=== PATIENT | female | born 1985 | race Caucasian/White ===

== ENCOUNTER 2020-10-07 13:48 | Outpatient (REF) | payer OTHER, SELFPAY | END 2020-10-07 13:49 | disposition home or self-care (01) | LOC: HO.LAB 13:48 | PROVIDERS: Visit Provider Nurse Practitioner Family | DX: Z20.822 Contact with and (suspected) exposure to COVID-19 (principal) | CPT/HCPCS: U0003; U0005 ==

== ENCOUNTER 2020-12-03 14:49 | Outpatient (REF) | payer OTHER, SELFPAY ==
--- NOTE | ~2020-12-03 | XR_ITS ---
EXAMINATION: XR LUMBOSACRAL SPINE CLINICAL INFORMATION: Low back pain. COMPARISON: None TECHNIQUE: Three views of the lumbosacral spine. FINDINGS: There is normal lumbar lordosis. The vertebral heights, alignment and disc heights are normal. There is no visible acute fracture, dislocation or subluxation seen. No lytic or sclerotic process seen. The SI joints are symmetrical and normal XR/XR lumbar spine 2-3V IMPRESSION: Unremarkable lumbar spine exam.
== END 2020-12-03 14:50 | disposition home or self-care (01) ==
LOC: HO.XRAY 14:49
PROVIDERS: PCP Internal Medicine; Visit Provider Nurse Practitioner Family
DX: M54.5 Low back pain (principal)
CPT/HCPCS: 72100

== ENCOUNTER 2021-02-06 06:52 | Emergency (ER) | payer OTHER, SELFPAY ==
--- NOTE | ~2021-02-06 | CT_ITS ---
EXAMINATION: CT ABDOMEN AND PELVIS WITH CONTRAST CLINICAL INFORMATION: Right upper and lower abdominal pain with diarrhea COMPARISON: None TECHNIQUE: Multidetector volumetric images were obtained from the superior aspect of the liver through the pubic symphysis following administration 85 mL of Omnipaque 350 intravenous contrast. Sagittal and coronal reformatted images were obtained on the technologist's workstation. Oral contrast: No This CT examination was performed using dose optimization techniques as appropriate, variously including the following: *Automated exposure control *Adjustment of mA and/or kV according to patient size (this includes techniques or standardized protocols for targeted exams where dose is matched to indication/reason for exam; i.e. extremities or head) *Use of iterative reconstruction technique DLP: 933 mGy-cm FINDINGS: LUNG BASES: The visualized lung bases are unremarkable. No pleural or pericardial effusion. LIVER, GALLBLADDER, AND BILIARY TREE: There is hepatomegaly with vertical span of 24 cm. There is diffuse fatty infiltration of the liver. No focal hepatic mass is seen. No intrahepatic bile duct dilatation. There is a calcified granuloma seen within segment 7. The gallbladder is unremarkable with no evidence of radiopaque gallstones, gallbladder wall thickening, or obvious pericholecystic inflammatory changes. PANCREAS: Unremarkable. SPLEEN: Unremarkable. ADRENAL GLANDS: Unremarkable. KIDNEYS AND URETERS: The kidneys are normal in size, shape, and attenuation. No hydronephrosis, hydroureter, or calculi seen. No perinephric stranding. BLADDER: Partially distended with question of thickened wall but which may be related to its not totally distended state. No bladder calculi identified. No pericystic inflammatory change appreciated. GASTROINTESTINAL TRACT: No free air or free fluid. No dilated loops of large or small bowel. No pericolonic inflammatory change. There appears to represent a very thin collapsed appendix does not appear abnormal however it does lead down to a region of diminished density within the pelvis but there are numerous bilateral adnexal low-density regions present with 1 in the location of the tip of the appendix in the anterior aspect of the right adnexa. This could possibly represent a hemorrhagic cyst however no adjacent free fluid is seen. ABDOMINAL WALL: No significant hernia is appreciated. LYMPH NODES: No lymphadenopathy appreciated. VASCULAR: Unremarkable. PELVIC VISCERA: No free fluid is seen. There are bilateral adnexal low-density lesions seen 4 x 3 cm in size measuring fluid density and may represent hemorrhagic cyst measuring 3.7 x 2.2 cm in size as well as a complex heterogeneous region of density about the anterior right adnexa without adjacent free fluid which also may represent hemorrhagic cyst. OSSEOUS STRUCTURES: Unremarkable. CT/CT abdomen pelvis w con IMPRESSION: Faint infiltration of the liver with hepatomegaly. Gallbladder unremarkable. No evidence of obstruction or colitis. No definite evidence of appendicitis with tip lying about the anterior right adnexa. Bilateral adnexal cysts, cannot rule out hemorrhagic cyst. However no free fluid is seen. No evidence of obstructive uropathy. Question some mild wall thickening of the urinary bladder.
[2021-02-06 07:26] VITALS: BP 137/72; PULSE 72; RESP 18; TEMP 36.9; O2SAT 99; BMI 35.4
--- NOTE | 2021-02-06 07:41 | ED_ITS ---
HPI - Abdominal Pain General Chief Complaint: Abdominal Pain Stated Complaint: stomach/abd pain Time Seen by Provider: 02/06/21 07:27 Source: patient Mode of arrival: ambulatory Limitations: no limitations History of Present Illness HPI narrative: 35-year-old female who presents emergency department for evaluation of abdominal pain, nausea, vomiting and diarrhea. Patient states that her symptoms came on gradually 5 days prior. She points to her epigastric, right upper quadrant and right lower quadrant areas when asked to localize the pain. She states the pain is a constant, squeezing pain which is 10/10. She states this is the 1st time she has had this type of pain. The patient has had constant nausea with 3-4 episodes of vomiting per day. She states that she has also had frequent, watery diarrhea, too numerous to count. She denied any blood in the emesis or diarrhea. She states that the diarrhea is black. She denied fever, chills, chest pain, shortness of breath, frequency, urgency or dysuria. She states that any time she eats food or drinks fluid makes the pain worse. She has been using Pepto-Bismol without any relief of her symptoms. Patient states that 3 days prior to evaluation, she completed a 10 day course of antibiotics (doxycycline?) for sinus infection/bronchitis. She denies recent travel outside of the country. Related Data Home Medications Medication Instructions Recorded Confirmed fluticasone propionate 50 2 spray INTRANASAL DAILY 05/29/20 12/03/20 mcg/actuation nasal spray,suspension naproxen 250 mg tablet 50 mg PO Q8H PRN tab 05/29/20 12/03/20 vitamin 1 tab PO DAILY 05/29/20 12/03/20 no.76-iron,carbonyl 29 mg iron-folic acid 1 mg tablet levonorgestrel-ethinyl estradiol 0 tab PO DAILY 12/03/20 01/29/21 0.1 mg-20 mcg tablet (Sronyx) methocarbamol 750 mg tablet 750 mg PO BEDTIME PRN 12/03/20 12/03/20 tramadol 50 mg tablet 50 mg PO DAILY 12/03/20 12/03/20 Previous Rx's Medication Instructions Recorded cyclobenzaprine 10 mg tablet 10 mg PO TID 5 Days #15 tab 05/30/20 albuterol sulfate 90 mcg/actuation 2 puff INHALATION Q4-6H PRN #6.7 g 10/07/20 aerosol inhaler (ProAir HFA) acetaminophen 325 mg tablet 650 mg PO Q6H PRN 5 Days #40 tab 12/03/20 gabapentin 100 mg capsule 100 mg PO TID #90 cap 12/03/20 lidocaine 4 % topical patch 1 patch TOPICAL DAILY PRN 7 Days 12/03/20 (Aspercreme (lidocaine)) #10 ea albuterol sulfate 2.5 mg (3 mL) INHALATION Q4-6H PRN 01/29/21 #90 ml doxycycline hyclate 100 mg tablet 100 mg PO BID 7 Days #14 tab 01/29/21 prednisone 20 mg tablet 40 mg PO DAILY 5 Days #10 tab 01/29/21 acetaminophen 500 mg capsule 1,000 mg PO Q6H PRN #30 cap 02/06/21 loperamide 2 mg tablet (Imodium 2 mg PO Q4H PRN #20 tab 02/06/21 A-D) ondansetron 4 mg disintegrating 4 mg PO Q6-8H PRN #14 tab 02/06/21 tablet Allergies Allergy/AdvReac Type Severity Reaction Status Date / Time aspirin [ASPIRIN] Allergy Unknown UNKNOWN, Verified 01/29/21 14:31 anaphylaxis peach [PEACH] Allergy Unknown UNKNOWN Verified 01/29/21 14:31 penicillin V Allergy Unknown anaphylaxis Verified 01/29/21 14:31 Penicillins [PENICILLINS] Allergy Unknown UNKNOWN Verified 01/29/21 14:31 Sulfa (Sulfonamide Allergy Unknown RASH Verified 01/29/21 14:31 Antibiotics) [SULFA (SULFONAMIDE ANTIBIOTICS)] Sulfacet-R Allergy Unknown throat Verified 01/29/21 14:31 closes Review of Systems Review of Systems Yes all other systems are reviewed and are negative Physical Exam Vital Signs: Vital Signs: Last Vital Signs Temp 98.2 F 02/06/21 10:35 Pulse 70 02/06/21 10:35 Resp 16 02/06/21 10:35 BP 115/61 02/06/21 10:35 Pulse Ox 97 02/06/21 10:35 Body Mass Index 35.4 Const: General: cooperative and no acute distress Orientation/consciousness: oriented to person and oriented to place Limitations: no limitations HENMT: Head: Yes normal to inspection, Yes normocephalic and Yes atraumatic Ears: external ears normal General nose exam: Normal external nose present Face and sinus: Yes normal facial exam Mouth: Normal oral and palatal mucosa present Throat: Yes posterior oropharynx normal Eyes: General: appearance normal, both eyes and all related structures Pupils: Equal, round and reactive pupils present Neck: Neck: Yes normal visual inspection, Yes no lymphadenopathy, Yes trachea midline and Yes supple Chest: Chest palpation & inspection: normal inspection of the chest and normal palpation of entire chest wall Resp: Effort & Inspection: normal respiratory effort and able to speak in complete sentences Auscultation: clear to auscultation bilaterally Cardio: Rate: regular rate Rhythm: regular rhythm Heart sounds: S1 normal heart sound present, S2 normal heart sound present and no murmurs GI: Inspection: Yes normal to inspection Palpation (GI): Soft to palpation, Tenderness to palpation present (GI) in the epigastrum (Moderate), in the RLQ (Moderate) and in the RUQ (Moderate) and no guarding Auscultation: normal bowel sounds : General: Yes no CVA tenderness Back/Spine/Pelvis: Back: no CVA tenderness Skin: General skin exam: no rashes or lesions noted Neuro: General: oriented to person and oriented to place Cranial nerves: Yes CN's II-XII intact bilaterally and Yes Equal, round and reactive pupils present Cognition (Neuro): normal cognition Motor exam (neuro): 5/5 motor strength present throughout Extrem: General: Yes normal to inspection Psych: Appearance: grossly normal Speech and movement: Normal speech and movement present Affect: normal affect Attitude: cooperative Thought process: Normal thought process present Thought content: Normal thought content present Course Course Course Narrative: 35-year-old female who presents emergency department for evaluation of 5 days of constant abdominal pain, associated with 3-4 episodes of vomiting per day and frequent loose, black diarrheal stool. The patient completed a 10 day course of doxycycline for sinusitis and bronchitis, approxima tely 3 days prior. Initial vital signs were normal. Examination did reveal epigastric, right upper quadrant right lower quadrant tenderness. Differential includes was not limited to biliary disease, gastritis, gastroenteritis, appendicitis, pancreatitis, C difficile colitis, viral syndrome. I did order CBC, CMP, lipase, C diff, stool culture, CT scan of the abdomen pelvis with IV contrast. Patient was ordered to get normal saline x1 L, Toradol 30 mg IV (the patient has used NSAIDs in the past ) and Zofran 4 mg IV. 1350: Laboratory evaluation: CBC, CMP were normal. C diff was negative. Patient is feeling better after the above treatment. At this time I suspect the patient may have a viral illness causing her symptoms. The patient will be started on Imodium, Zofran ODT and Tylenol. She was given verbal and printed instructions and discharged home. MDM - Abdominal Pain Lab Data Result diagrams: 02/06/21 08:14 02/06/21 08:14 Labs: Lab Results 02/06/21 02/06/21 02/06/21 Range/Units 08:14 08:14 08:29 WBC 6.7 (4.8-10.8) X10*3/uL RBC 4.62 (4.20-5.50) X10*6/uL Hgb 13.2 (12.0-16.0) g/dl Hct 39.7 (37.0-47.0) % MCV 85.9 (80.0-98.0) fL MCH 28.6 (27.0-33.0) pg MCHC 33.2 (31.0-35.0) g/dl RDW 12.1 (11.0-16.0) % Plt Count 213 (160-400) X10*3/uL MPV 10.8 (9.4-12.3) fL Immature Gran % (Auto) 0.3 (0.0-0.4) % Neut % (Auto) 62.9 (45-73) % Lymph % (Auto) 26.7 (20-40) % [place] % (Auto) 7.5 (2-11) % Eos % (Auto) 2.3 (0-4) % Baso % (Auto) 0.3 (0-2) % Lymph # (Auto) 1.8 (1.2-4.9) X10*3/uL [place] # (Auto) 0.5 (0.1-1.2) X10*3/uL Eos # (Auto) 0.2 (0.0-0.4) X10*3/uL Baso # (Auto) 0.0 (0.0-0.2) X10*3/uL Abs Immat Gran (auto) 0.02 (0.00-0.03) X10*3/uL Absolute Neuts (auto) 4.2 (2.0-8.3) x10*3/uL Absolute Nucleated RBC 0.000 (0.0-0.012) X10*3/uL Nucleated RBC % (auto) 0.0 (0.0-0.2) /100WBC Sodium 138 (135-145) mmol/L Potassium 4.2 (3.3-5.1) mmol/L Chloride 106 (96-108) mmol/L Carbon Dioxide 25 (22-29) mmol/L Anion Gap 11 L (12-20) BUN 13 (9-16) mg/dL Creatinine 0.70 (0.5-1.4) mg/dL Estim Creat Clear Calc 150.2 Estimated GFR > 60 Random Glucose 93 (60-115) mg/dL Calcium 8.5 (8.4-10.2) mg/dL Total Bilirubin 0.3 (0.0-1.0) mg/dL AST 15 (5-31) U/L ALT 21 (0-31) U/L Alkaline Phosphatase 46 (39-117) U/L Total Protein 6.8 (6.5-8.0) g/dL Albumin 3.9 (3.5-5.0) g/dL Lipase 32 (8-78) U/L Urine Color YELLOW Urine Appearance CLEAR Urine pH 6.0 (5.0-8.0) Ur Specific [place] 1.020 (1.005-1.025) Urine Protein TRACE (NEG-TRACE) MG/DL Urine Glucose (UA) NEG (NEG) MG/DL Urine Ketones NEG (NEG) MG/DL Urine Blood 3+ H (NEG) Urine Nitrite NEG (NEG) Ur Leukocyte Esterase NEG (NEG) Urine RBC 1-4 (0) /HPF Urine WBC 0-2 (0-4) /HPF Ur Squamous Epith Cells 2+ /LPF Urine Bacteria 1+ /LPF Urine Mucus 1+ /LPF Urine Test (NEGATIVE) C. difficile Tox B Gene (Negative) 02/06/21 02/06/21 Range/Units 08:29 Unknown WBC (4.8-10.8) X10*3/uL RBC (4.20-5.50) X10*6/uL Hgb (12.0-16.0) g/dl Hct (37.0-47.0) % MCV (80.0-98.0) fL MCH (27.0-33.0) pg MCHC (31.0-35.0) g/dl RDW (11.0-16.0) % Plt Count (160-400) X10*3/uL MPV (9.4-12.3) fL Immature Gran % (Auto) (0.0-0.4) % Neut % (Auto) (45-73) % Lymph % (Auto) (20-40) % [place] % (Auto) (2-11) % Eos % (Auto) (0-4) % Baso % (Auto) (0-2) % Lymph # (Auto) (1.2-4.9) X10*3/uL [place] # (Auto) (0.1-1.2) X10*3/uL Eos # (Auto) (0.0-0.4) X10*3/uL Baso # (Auto) (0.0-0.2) X10*3/uL Abs Immat Gran (auto) (0.00-0.03) X10*3/uL Absolute Neuts (auto) (2.0-8.3) x10*3/uL Absolute Nucleated RBC (0.0-0.012) X10*3/uL Nucleated RBC % (auto) (0.0-0.2) /100WBC Sodium (135-145) mmol/L Potassium (3.3-5.1) mmol/L Chloride (96-108) mmol/L Carbon Dioxide (22-29) mmol/L Anion Gap (12-20) BUN (9-16) mg/dL Creatinine (0.5-1.4) mg/dL Estim Creat Clear Calc Estimated GFR Random Glucose (60-115) mg/dL Calcium (8.4-10.2) mg/dL Total Bilirubin (0.0-1.0) mg/dL AST (5-31) U/L ALT (0-31) U/L Alkaline Phosphatase (39-117) U/L Total Protein (6.5-8.0) g/dL Albumin (3.5-5.0) g/dL Lipase (8-78) U/L Urine Color Urine Appearance Urine pH (5.0-8.0) Ur Specific [place] (1.005-1.025) Urine Protein (NEG-TRACE) MG/DL Urine Glucose (UA) (NEG) MG/DL Urine Ketones (NEG) MG/DL Urine Blood (NEG) Urine Nitrite (NEG) Ur Leukocyte Esterase (NEG) Urine RBC (0) /HPF Urine WBC (0-4) /HPF Ur Squamous Epith Cells /LPF Urine Bacteria /LPF Urine Mucus /LPF Urine Test NEGATIVE (NEGATIVE) C. difficile Tox B Gene NEGATIVE (Negative) Discharge Plan Discharge Clinical Impression: Abdominal pain, Diarrhea, Vomiting Patient Disposition: Home, Self-Care Instructions: Acute Diarrhea (ED), Abdominal Pain (ED) Additional Instructions: Your blood work was unremarkable. The CT scan of your abdomen pelvis did not any significant abnormality to explain your symptoms. The C diff stool test was negative. There is a stool culture that is not back yet, this sometimes comes back in 2-3 days. At this time, I believe that you have a viral infection that is making you sick, causing your abdominal pain, nausea and vomiting. Take Imodium 2 mg pills, 2 pills after her 1st loose diarrheal stool then 1 pill after each loose stool up to 8 pills per day. Take Zofran ODT 4 mg pills, 1 pill dissolved in your mouth every 8 hours as needed for nausea and vomiting. Take ibuprofen 200 mg pills, 3 pills every 6 hours as needed for pain. Take Tylenol (acetaminophen) 500 mg pills, 2 pills every 4 to 6 hours as needed for pain. Follow-up with your doctor in 2 days. Please return to the emergency department if your symptoms get worse or if you develop any symptoms that are concerning to you. Prescriptions: New ondansetron 4 mg tablet,disintegrating 4 mg PO Q6-8H PRN (Reason: nausea and vomiting) Qty: 14 RF: 0 loperamide [Imodium A-D] 2 mg tablet 2 mg PO Q4H PRN (Reason: loose stool) Qty: 20 RF: 0 acetaminophen 500 mg capsule 1,000 mg PO Q6H PRN (Reason: fever or pain) Qty: 30 RF: 0 No Action cyclobenzaprine 10 mg tablet 10 mg PO TID 5 Days Qty: 15 RF: 0 albuterol sulfate [ProAir HFA] 90 mcg/actuation HFA aerosol inhaler 2 puff inhalation Q4-6H PRN (Reason: shortness of breath or wheezing) Qty: 6.7 RF: 0 tramadol 50 mg tablet 50 mg PO DAILY RF: 0 levonorgestrel-ethinyl estrad [Sronyx] 0.1-20 mg-mcg tablet 0 tab PO DAILY RF: 0 methocarbamol 750 mg tablet 750 mg PO BEDTIME PRNRF: 0 gabapentin 100 mg capsule 100 mg PO TID Qty: 90 RF: 3 lidocaine [Aspercreme (lidocaine HCl)] 4 % adhesive patch,medicated 1 patch topical DAILY PRN (Reason: pain) 7 Days Qty: 10 RF: 0 acetaminophen 325 mg tablet 650 mg PO Q6H PRN (Reason: pain) 5 Days Qty: 40 RF: 0 PNV 29-1 29 mg iron- 1 mg tablet 1 tab PO DAILY RF: 0 fluticasone propionate 50 mcg/actuation spray,suspension 2 spray intranasal DAILY RF: 0 naproxen 250 mg tablet 50 mg PO Q8H PRNRF: 0 prednisone 20 mg tablet 40 mg PO DAILY 5 Days Qty: 10 RF: 0 doxycycline hyclate 100 mg tablet 100 mg PO BID 7 Days Qty: 14 RF: 0 albuterol sulfate 2.5 mg /3 mL (0.083 %) solution for nebulization 2.5 mg inhalation Q4-6H PRN (Reason: shortness of breath or wheezing) Qty: 90 RF: 0 Stand Alone Forms: Work/School Release [facility] [place] Past Medical History [facility] [place] Narrative: Past medical history: Asthma, sinusitis, back pain. Past edgard gical history: Cervical polyp removal. Social history: She denies tobacco, alcohol and drug use. Medical History Low back pain radiating to lower extremity Surgical History History of cervical polypectomy Family History Family History Mother No problems noted. Father No problems noted. Social History Social History Housing: Apartment Alcohol intake: never Patient Tobacco Use Status: Never used Tobacco e-Cigarette/Vaping Use: Never Used Second Hand Smoke Exposure: No Use of substances other than those prescribed or required for medical reasons: No Advance Directives: No Advance Directives Information Provided: Yes service: No Current occupational status: employed
[2021-02-06 08:21] LABS: MANUAL DIFF FLAG NO
[2021-02-06 08:22] LABS: Basophils Percent Auto 0.3 % (0-2); Eosinophils Absolute Auto 0.2 X10*3/uL (0.0-0.4); Eosinophils Percent Auto 2.3 % (0-4); Hematocrit 39.7 % (37.0-47.0); Hemoglobin 13.2 g/dl (12.0-16.0); Imm Gran Abs Auto 0.02 X10*3/uL (0.00-0.03); Imm Gran Pct Auto 0.3 % (0.0-0.4); Lymphocytes Absolute Auto 1.8 X10*3/uL (1.2-4.9); Lymphocytes Percent Auto 26.7 % (20-40); Mean Corpuscular HGB Conc 33.2 g/dl (31.0-35.0); Mean Corpuscular Hemoglobin 28.6 pg (27.0-33.0); Mean Corpuscular Volume 85.9 fL (80.0-98.0); Mean Platelet Volume 10.8 fL (9.4-12.3); Monocytes Absolute Auto 0.5 X10*3/uL (0.1-1.2); Monocytes Percent Auto 7.5 % (2-11); Neutrophils Absolute Auto 4.2 x10*3/uL (2.0-8.3); Neutrophils Percent Auto 62.9 % (45-73); Platelet Count 213 X10*3/uL (160-400); Red Blood Count 4.62 X10*6/uL (4.20-5.50); Red Cell Distribution Width 12.1 % (11.0-16.0); White Blood Count 6.7 X10*3/uL (4.8-10.8)
[2021-02-06 08:33] VITALS: BP 126/68; PULSE 66; RESP 18; TEMP 37.2; O2SAT 98
[2021-02-06 08:41] LABS: Alanine Aminotransferase 21 U/L (0-31); Albumin Level 3.9 g/dL (3.5-5.0); Alkaline Phosphatase 46 U/L (39-117); Anion Gap 11 (12-20); Aspartate Amino Transferase 15 U/L (5-31); Bilirubin Total 0.3 mg/dL (0.0-1.0); Blood Urea Nitrogen 13 mg/dL (9-16); Calcium 8.5 mg/dL (8.4-10.2); Carbon Dioxide 25 mmol/L (22-29); Chloride 106 mmol/L (96-108); Creatinine Clr Calc Pharmacy 150.2; Estimated Glomerular Filt Rate > 60; Glucose Random 93 mg/dL (60-115); Lipase 32 U/L (8-78); Potassium 4.2 mmol/L (3.3-5.1); Sodium 138 mmol/L (135-145); Total Protein 6.8 g/dL (6.5-8.0)
[2021-02-06 08:54] LABS: Appearance Urine CLEAR; Color Urine YELLOW; Glucose Urine UA NEG (NEG); Leukocyte Esterase Urine NEG (NEG); Nitrite Urine NEG (NEG); UACC Culture Trigger NO; Urine Blood 3+ (NEG); Urine Ketones NEG (NEG); Urine Protein TRACE MG/DL (NEG-TRACE)
[2021-02-06 09:10] LABS: Bacteria Urine 1+ /LPF; Mucus Urine 1+ /LPF; Squamous Epithelial Cell Urine 2+ /LPF; WBC Urine 0-2 /HPF (0-4)
[2021-02-06 09:11] LABS: UPreg QC Valid YES; Urine Pregnancy NEGATIVE (NEGATIVE)
[2021-02-06] MEDS: 0.9 % Sodium Chloride 1,000 ML 999 ML IV (09:31)
[2021-02-06] MEDS: Ketorolac Tromethamine 15 MG/ML VIAL 30 MG IVPUSH (09:31)
[2021-02-06] MEDS: ondansetron HCL 4 MG/2 ML VIAL IVPUSH (09:31)
[2021-02-06] MEDS: iohexoL 350 MG/ML 100 ML INFUS..BTL IV (09:41)
[2021-02-06 10:35] VITALS: BP 115/61; PULSE 70; RESP 16; TEMP 36.8; O2SAT 97
[2021-02-06 10:44] LABS: CDiff Gene PCR NEGATIVE (Negative)
[2021-02-06 14:11] VITALS: BP 95/48; PULSE 62; RESP 15; TEMP 36.6; O2SAT 98
== END 2021-02-06 14:16 | disposition home or self-care (01) ==
PROVIDERS: Emergency Provider Emergency Medicine Emergency Medical Services
DX: R10.9 Unspecified abdominal pain (principal); R11.2 Nausea with vomiting, unspecified; R19.7 Diarrhea, unspecified
CPT/HCPCS: 36415; 74177; 80053; 81001; 81025; 83690; 85025; 87045; 87046; 87493; 96361; 96374; 96375; 99285; J1885; J2405; Q9967

== ENCOUNTER 2021-02-13 07:19 | Outpatient (REF) | payer OTHER, SELFPAY ==
[2021-02-13 08:31] LABS: Leukocytes Stool Qualitative NEGATIVE (NEGATIVE)
== END 2021-02-13 07:20 | disposition home or self-care (01) ==
LOC: HO.LNP 07:19
PROVIDERS: Visit Provider Internal Medicine
DX: R19.7 Diarrhea, unspecified (principal)
CPT/HCPCS: 87045; 87046; 87329; 87338; 89055

== ENCOUNTER 2021-02-28 11:46 | Outpatient (REF) | payer OTHER, SELFPAY ==
[2021-02-28 12:01] LABS: MANUAL DIFF FLAG NO
[2021-02-28 13:02] LABS: Basophils Percent Auto 0.2 % (0-2); Eosinophils Absolute Auto 0.1 X10*3/uL (0.0-0.4); Hematocrit 41.4 % (37.0-47.0); Hemoglobin 13.5 g/dl (12.0-16.0); Imm Gran Abs Auto 0.03 X10*3/uL (0.00-0.03); Imm Gran Pct Auto 0.5 % (0.0-0.4); Lymphocytes Percent Auto 30.8 % (20-40); Mean Corpuscular HGB Conc 32.6 g/dl (31.0-35.0); Mean Corpuscular Hemoglobin 28.4 pg (27.0-33.0); Mean Platelet Volume 11.5 fL (9.4-12.3); Monocytes Absolute Auto 0.4 X10*3/uL (0.1-1.2); Monocytes Percent Auto 6.8 % (2-11); Neutrophils Absolute Auto 3.8 x10*3/uL (2.0-8.3); Neutrophils Percent Auto 59.7 % (45-73); Platelet Count 239 X10*3/uL (160-400); Red Blood Count 4.76 X10*6/uL (4.20-5.50); Red Cell Distribution Width 12.2 % (11.0-16.0); White Blood Count 6.4 X10*3/uL (4.8-10.8)
[2021-02-28 13:19] LABS: Alanine Aminotransferase 29 U/L (0-31); Albumin Level 4.3 g/dL (3.5-5.0); Alkaline Phosphatase 58 U/L (39-117); Anion Gap 15 (12-20); Aspartate Amino Transferase 24 U/L (5-31); Bilirubin Total 0.5 mg/dL (0.0-1.0); Blood Urea Nitrogen 14 mg/dL (9-16); Calcium 9.6 mg/dL (8.4-10.2); Carbon Dioxide 24 mmol/L (22-29); Chloride 106 mmol/L (96-108); Cholesterol 197 mg/dL; Estimated Glomerular Filt Rate > 60; Glucose Fasting 99 mg/dL (60-99); HDL Cholesterol 32 mg/dL; LDL Cholesterol Calculated 127 mg/dl; Potassium 4.3 mmol/L (3.3-5.1); Sodium 141 mmol/L (135-145); Total Protein 7.6 g/dL (6.5-8.0); Triglycerides 193 mg/dL
[2021-02-28 13:55] LABS: Appearance Urine HAZY; Color Urine YELLOW; Glucose Urine UA NEG (NEG); Leukocyte Esterase Urine TRACE (NEG); Nitrite Urine NEG (NEG); Specific Gravity - Urine >= 1.030 (1.005-1.025); UACC Culture Trigger YES; Urine Blood NEG (NEG); Urine Ketones NEG (NEG); Urine Protein NEG (NEG-TRACE)
[2021-02-28 14:30] LABS: Squamous Epithelial Cell Urine 3+ /LPF; WBC Urine 0-2 /HPF (0-4)
[2021-02-28 14:31] LABS: Bacteria Urine TRACE /LPF; RBC Urine 0-2 /HPF (0)
== END 2021-02-28 11:47 | disposition home or self-care (01) ==
LOC: HO.LAB 11:46
PROVIDERS: Nurse Practitioner Family; PCP Internal Medicine; Visit Provider Nurse Practitioner Family
DX: R19.7 Diarrhea, unspecified (principal); M54.50 Low back pain, unspecified
CPT/HCPCS: 36415; 80053; 80061; 81001; 85025; 87045; 87046; 87086

== ENCOUNTER 2021-03-03 13:21 | Outpatient (REF) | payer OTHER, SELFPAY ==
[2021-03-03 15:21] LABS: C Reactive Protein 0.29 mg/dL (< or = 0.50)
[2021-03-03 15:57] LABS: Folate 17.6 ng/mL (> or = 4.0); Vitamin B12 383 pg/mL (200-900)
[2021-03-06 12:37] LABS: Transglutaminase Ab IgG <1.0 U/mL; Transglutaminase IgA <1.0 U/mL
[2021-03-07 13:20] LABS: Vitamin D 25-OH, D2 <4 ng/mL; Vitamin D 25-OH, D3 15 ng/mL; Vitamin D 25-OH, Total 15 ng/mL (30-100)
== END 2021-03-03 13:22 | disposition home or self-care (01) ==
LOC: HO.LAB 13:21
PROVIDERS: PCP Internal Medicine; Referring Provider Internal Medicine; Visit Provider Nurse Practitioner Family
DX: R10.11 Right upper quadrant pain (principal); R14.0 Abdominal distension (gaseous); R19.7 Diarrhea, unspecified; K58.9 Irritable bowel syndrome, unspecified; E55.9 Vitamin D deficiency, unspecified; A04.8 Other specified bacterial intestinal infections; K58.2 Mixed irritable bowel syndrome
CPT/HCPCS: 36415; 81479; 82306; 82397; 82607; 82746; 83516; 83520; 84443; 86140; 88346; 88350

== ENCOUNTER → 2021-03-24 15:12 | Outpatient (BNVA) | payer OTHER, SELFPAY | PROVIDERS: PCP Internal Medicine; Referring Provider Internal Medicine; Visit Provider Nurse Practitioner Family | DX: K21.9 Gastro-esophageal reflux disease without esophagitis (principal); K58.2 Mixed irritable bowel syndrome; K76.0 Fatty (change of) liver, not elsewhere classified; R19.7 Diarrhea, unspecified | CPT/HCPCS: 99212 ==

== ENCOUNTER → 2021-04-23 13:21 | Outpatient (BNVA) | payer OTHER, SELFPAY | PROVIDERS: PCP Internal Medicine; Referring Provider Internal Medicine; Visit Provider Nurse Practitioner Family | DX: R19.7 Diarrhea, unspecified (principal); R14.0 Abdominal distension (gaseous); A04.8 Other specified bacterial intestinal infections; K58.2 Mixed irritable bowel syndrome; K21.9 Gastro-esophageal reflux disease without esophagitis | CPT/HCPCS: 99212 ==

== ENCOUNTER 2021-05-07 10:09 | Day surgery (SDC) | payer OTHER, SELFPAY ==
[2021-05-01 12:16] VITALS: BMI 35.2
--- NOTE | 2021-05-06 12:11 | P.CONAN_ITS ---
Documented by User: Sandra Cabrera NP 05/06/21 12:12 HPI - Anesthesia Eval Consult details Narrative: 36yo F for Upper Endoscopy PMFSH Active Problems Active Problems: All Active Problems (Updated 03/03/21 @ 14:05 by Michaela Interiano, [facility]) Bloating (Acute) Bad odor of urine (Acute) Diarrhea (Acute) Rectal bleeding (Acute) H. pylori infection (Acute) Class 2 obesity with body mass index (BMI) of 37.0 to 37.9 in adult (Acute) Acute diarrhea (Acute) Sinusitis, acute (Acute) Asthma (Acute) Upper respiratory infection (Acute) Shoulder pain, bilateral (Acute) Low back pain radiating to lower extremity (Acute) Past Medical History Medical History Acute diarrhea Class 2 obesity with body mass index (BMI) of 37.0 to 37.9 in adult Low back pain radiating to lower extremity Rectal bleeding Family History Family History Mother No problems noted. Father No problems noted. Surgical History Surgical History History of cervical polypectomy Social History Social History Housing: Apartment Alcohol intake: never Patient Tobacco Use Status: Never used Tobacco e-Cigarette/Vaping Use: Never Used Second Hand Smoke Exposure: No Are you DNR?: No Advance Directives: No Advance Directives Information Provided: Yes Advance Directives on File: No Recently lost weight without trying: No Patient : No FDLMP: 04/16/2021 : No Poor oral hygiene: No service: No Current occupational status: employed Meds Allergies Allergy/AdvReac Type Severity Reaction Status Date / Time aspirin [ASPIRIN] Allergy Severe Anaphylaxis Verified 04/23/21 13:31 penicillin V Allergy Severe anaphylaxis Verified 04/23/21 13:31 Sulfa (Sulfonamide Allergy Intermediate RASH Verified 04/23/21 13:31 Antibiotics) [SULFA (SULFONAMIDE ANTIBIOTICS)] Sulfacet-R Allergy Intermediate throat Verified 04/23/21 13:31 closes peach [PEACH] Allergy Unknown UNKNOWN Verified 04/23/21 13:31 Home Medications Medication Instructions Recorded Confirmed Last Taken Type fluticasone propionate 50 2 spray INTRANASAL DAILY 05/29/20 05/01/21 Unknown History mcg/actuation nasal spray,suspension naproxen 250 mg tablet 50 mg PO Q8H PRN tab 05/29/20 02/27/21 Unknown History vitamin 1 tab PO DAILY 05/29/20 05/01/21 Unknown History no.76-iron,carbonyl 29 mg iron-folic acid 1 mg tablet methocarbamol 750 mg tablet 750 mg PO BEDTIME PRN 12/03/20 05/01/21 Unknown History Provera 05/01/21 Unknown History cyclobenzaprine 10 mg tablet 10 mg PO TID PRN 05/01/21 05/01/21 Unknown History Exam Exam Date and Time: May 06, 2021 1211 Height,Weight and Vital Signs: Height 5 ft 9 in Weight 108.409 kg Pertinent Lab Results Pertinent Lab Results: Laboratory Tests 02/28/21 02/28/21 12:00 12:00 WBC 6.4 Hgb 13.5 Hct 41.4 Plt Count 239 Sodium 141 Potassium 4.3 Chloride 106 Carbon Dioxide 24 BUN 14 Creatinine 0.80 Assessment and Plan Assessment Anesthesia Assessment: Chart Reviewed Documented by User: Lyn Gomez MD 05/07/21 10:28 [facility] Past Medical History Medical History Acute diarrhea Class 2 obesity with body mass index (BMI) of 37.0 to 37.9 in adult Low back pain radiating to lower extremity Rectal bleeding Family History Family History Mother No problems noted. Father No problems noted. Family history of problems with anesthesia: No Surgical History Surgical History History of cervical polypectomy History of Problems with Anesthesia: No Social History Social History Housing: Apartment Alcohol intake: never Patient Tobacco Use Status: Never used Tobacco e-Cigarette/Vaping Use: Never Used Second Hand Smoke Exposure: No Are you DNR?: No Advance Directives: No Advance Directives Information Provided: Yes Advance Directives on File: No Recently lost weight without trying: No Patient : No FDLMP: 04/16/2021 : No Poor oral hygiene: No service: No Current occupational status: employed Meds Allergies Allergy/AdvReac Type Severity Reaction Status Date / Time aspirin [ASPIRIN] Allergy Severe Anaphylaxis Verified 04/23/21 13:31 penicillin V Allergy Severe anaphylaxis Verified 04/23/21 13:31 Sulfa (Sulfonamide Allergy Intermediate RASH Verified 04/23/21 13:31 Antibiotics) [SULFA (SULFONAMIDE ANTIBIOTICS)] Sulfacet-R Allergy Intermediate throat Verified 04/23/21 13:31 closes peach [PEACH] Allergy Unknown UNKNOWN Verified 04/23/21 13:31 Home Medications Medication Instructions Recorded Confirmed Last Taken Type fluticasone propionate 50 2 spray INTRANASAL DAILY 05/29/20 05/01/21 Unknown History mcg/actuation nasal spray,suspension naproxen 250 mg tablet 50 mg PO Q8H PRN tab 05/29/20 02/27/21 Unknown History vitamin 1 tab PO DAILY 05/29/20 05/01/21 Unknown History no.76-iron,carbonyl 29 mg iron-folic acid 1 mg tablet methocarbamol 750 mg tablet 750 mg PO BEDTIME PRN 12/03/20 05/01/21 Unknown History Provera 05/01/21 Unknown History cyclobenzaprine 10 mg tablet 10 mg PO TID PRN 05/01/21 05/01/21 Unknown History Exam Airway Mallampati Class: II TM Dist: >3cm Neck ROM: Full Heart: rrr Lungs: cta Assessment and Plan Assessment Anesthesia Assessment: Anesthesia Plan Discussed and Chart Reviewed Final Anesthetic Review Family History of Problems with Anesthesia: No History of Problems with Anesthesia: No NPO: Yes ASA Class: III Final Preanesthetic Review: No Changes in Pt Med Stat, Meds/Allgs Chart Reviewed and Consent Obtained/Reviewed Patient Risk: Intermediate Procedure Risk: Intermediate Anesthetic Plan Anesthetic Plan: MAC: Disposition: Standard PACU
[2021-05-07 10:29] VITALS: BP 132/94; PULSE 73; RESP 19; TEMP 36.8; O2SAT 98; BMI 34.0
[2021-05-07 10:36] LABS: UPreg QC Valid YES
[2021-05-07 10:37] LABS: Urine Pregnancy NEGATIVE (NEGATIVE)
--- NOTE | 2021-05-07 10:47 | MHC.SHP ---
Pre-Procedural Eval Section A Date of Service: 05/07/21 Section B Chief Complaint: GERD Relevant Family History (Specify if Yes): No Relevant Social History: None Present Medications: see Short Stay Collaborative assessment Medical History: Significant History (Acute diarrhea Class 2 obesity with body mass index (BMI) of 37.0 to 37.9 in adult Low back pain radiating to lower extremity Rectal bleeding) History of Previous Operations: Relevant previous surgery/procedure and date(s) (cervical polypectomy) Allergies: Allergies Allergy/AdvReac Type Severity Reaction Status Date / Time aspirin [ASPIRIN] Allergy Severe Anaphylaxis Verified 04/23/21 13:31 penicillin V Allergy Severe anaphylaxis Verified 04/23/21 13:31 Sulfa (Sulfonamide Allergy Intermediate RASH Verified 04/23/21 13:31 Antibiotics) [SULFA (SULFONAMIDE ANTIBIOTICS)] Sulfacet-R Allergy Intermediate throat Verified 04/23/21 13:31 closes peach [PEACH] Allergy Unknown UNKNOWN Verified 04/23/21 13:31 Review of Systems Sugical H&P ROS: Negative: Constitution, Cardiovascular, Respiratory, Neurological, Psychiatric, Hem-Onc, Allergic/Immunologic, Gastrointestinal, Genitourinary, Musculoskeletal, Integumentary, Endocrine and Eyes/Ears/Nose/Throat Exam Surgical H&P Exam: Normal: HEENT, Normal: Heart, Normal: Lungs, Normal: Extremities, Normal: Abdomen, Normal: Skin and Normal: Neurological Plan Diagnosis/Plan: Unchanged I have reviewed the history and physical and performed a pertinent physical examination on my patient. No changes have occurred unless specified.
--- NOTE | 2021-05-07 11:24 | W.PM.OPN ---
Operative Note Operative Note Date of Service: 05/07/21 Narrative: Procedure Description: EGD FLEXIBLE TRANSORAL UPPER GASTROINTESTINAL ENDOSCOPY UPPER ENDOSCOPY Consent: Indications for the procedure and potential complications of bleeding, perforation, reaction to medications and missed diagnosis were discussed with the patient and informed consent was obtained. Instrument: Olympus GIF H 190 J mid size upper endoscope Monitoring: Vital signs and clinical assessment, continuous EKG monitoring, Pulse oximetry, Carbon Dioxide monitoring and blood pressure monitoring were done throughout the procedure. Procedure: The patient was placed in the left lateral decubitis position and pre-procedure medications were administered and a bite block was placed. The endoscope was inserted into the mouth and advanced under direct vision to the third part of duodenum. A careful inspection was made as the upper endoscope was withdrawn including a retroflexed examination of the proximal stomach; Findings and interventions are described below. Findings: Larynx:normal Esophagus: GE junction at 40 cm, diaphragm hiatus at 40 cm, no varices or esophagitis. esophagus bx taken Stomach: Patchy gastric erythema. Biopsies were obtained. Grade 2 flap valve on retroflexed examination of the cardia. bx taken Duodenum: Normal bulb and descending duodenum, bx taken Intervention: Biopsies as noted above Impression/Findings: mild gastritis PLAN: await bx trial of rifaximin and see if helps diarrheal sx if not investigate pancreas
[2021-05-07 11:43] VITALS: BP 107/56; PULSE 85; RESP 16; TEMP 36.2; O2SAT 96
[2021-05-07 12:00] VITALS: BP 120/74; PULSE 66; RESP 20; O2SAT 97
[2021-05-07 12:15] VITALS: BP 113/69; PULSE 65; RESP 18; TEMP 36.2; O2SAT 99
== END 2021-05-07 12:55 | disposition home or self-care (01) ==
PROVIDERS: Nurse Practitioner; PCP Internal Medicine; Visit Provider Internal Medicine Gastroenterology
PROC: 0DJ08ZZ Inspection of Upper Intestinal Tract, Via Natural or Artificial Opening Endoscopic (ICD-10-PCS; CPT 43235; principal; 2021-05-07 11:00)
DX: K21.9 Gastro-esophageal reflux disease without esophagitis (principal); K29.50 Unspecified chronic gastritis without bleeding; K58.0 Irritable bowel syndrome with diarrhea; K76.0 Fatty (change of) liver, not elsewhere classified; K44.9 Diaphragmatic hernia without obstruction or gangrene; E66.8 Other obesity; Z68.36 Body mass index [BMI] 36.0-36.9, adult; Z88.0 Allergy status to penicillin; Z88.2 Allergy status to sulfonamides; Z88.8 Allergy status to other drugs, medicaments and biological substances
CPT/HCPCS: 43239; 81025; 88305; 88342

== ENCOUNTER → 2021-05-21 15:28 | Outpatient (BNVA) | payer OTHER, SELFPAY | PROVIDERS: PCP Internal Medicine; Visit Provider Nurse Practitioner Family | DX: K58.2 Mixed irritable bowel syndrome (principal); K21.9 Gastro-esophageal reflux disease without esophagitis; R10.11 Right upper quadrant pain; E66.01 Morbid (severe) obesity due to excess calories; Z68.34 Body mass index [BMI] 34.0-34.9, adult; Z88.6 Allergy status to analgesic agent; Z88.1 Allergy status to other antibiotic agents; Z88.0 Allergy status to penicillin; Z88.2 Allergy status to sulfonamides; Z91.018 Allergy to other foods | CPT/HCPCS: 99212 ==

== ENCOUNTER 2021-06-16 11:30 | Outpatient (REF) | payer OTHER, SELFPAY ==
[2021-06-17 15:53] LABS: CDiff Gene PCR NEGATIVE (Negative)
[2021-06-17 18:55] LABS: Leukocytes Stool Qualitative NEGATIVE (NEGATIVE)
[2021-06-24 17:07] LABS: Pancreatic Elastase-1 >500 mcg/g
== END 2021-06-16 11:31 | disposition home or self-care (01) ==
LOC: HO.LNP 11:30
PROVIDERS: Nurse Practitioner Family; Visit Provider Nurse Practitioner Family
DX: R19.7 Diarrhea, unspecified (principal)
CPT/HCPCS: 82656; 87045; 87046; 87177; 87209; 87493; 89055

== ENCOUNTER → 2021-07-22 13:06 | Outpatient (REF) | payer OTHER, SELFPAY ==
--- NOTE | ~2021-07-22 | XR_ITS ---
EXAMINATION: XR CHEST CLINICAL INFORMATION: Shortness of breath COMPARISON: None TECHNIQUE: 2 views of the chest were obtained. FINDINGS: No significant abnormality is noted involving the heart, lungs, mediastinum, bony thorax or soft tissues. XR/XR chest 2V IMPRESSION: Unremarkable chest examination.
--- NOTE | 2021-07-22 13:14 | ECG_ITS ---
Test Reason : sob Blood Pressure : / mmHG Vent. Rate : 067 BPM Atrial Rate : 067 BPM P-R Int : 162 ms QRS Dur : 082 ms QT Int : 394 ms P-R-T Axes : 032 021 027 degrees QTc Int : 416 ms Normal sinus rhythm Normal ECG When compared with ECG of 15-OCT-2018 14:50, No significant change was found Referred By: Christy Larkin Electronically Signed By:LITA MANNING MD
== END ==
LOC: HO.CARD 13:06
PROVIDERS: PCP Internal Medicine; Visit Provider Nurse Practitioner Family
DX: R06.02 Shortness of breath (principal)
CPT/HCPCS: 71046; 93005

== ENCOUNTER 2021-08-07 15:39 | Outpatient (REF) | payer OTHER, SELFPAY ==
--- NOTE | ~2021-08-07 | XR_ITS ---
EXAMINATION: XR, TOE, LEFT XR TOE, RIGHT CLINICAL INFORMATION: Pain bilateral fifth toes. COMPARISON: None TECHNIQUE: AP view right foot is performed along with 2 views right fifth toe. AP view left foot is performed along with 3 views left fifth toe. There are total of 7 views. FINDINGS: Right: Normal bony mineralization. No acute or healing fracture, dislocation, destructive process. No periostitis. No focal joint narrowing or erosive change. There is small exostosis from the lateral aspect neck fifth proximal phalanx, approximately 3 mm. No cartilaginous cap. Left: Normal bony mineralization. No acute or healing fracture, dislocation, destructive process. No periostitis. No focal joint narrowing or erosive change. XR/XR toe RT min 2V IMPRESSION: -No acute or healing fracture or arthropathy. -No erosive changes.
--- NOTE | ~2021-08-07 | XR_ITS ---
EXAMINATION: XR, TOE, LEFT XR TOE, RIGHT CLINICAL INFORMATION: Pain bilateral fifth toes. COMPARISON: None TECHNIQUE: AP view right foot is performed along with 2 views right fifth toe. AP view left foot is performed along with 3 views left fifth toe. There are total of 7 views. FINDINGS: Right: Normal bony mineralization. No acute or healing fracture, dislocation, destructive process. No periostitis. No focal joint narrowing or erosive change. There is small exostosis from the lateral aspect neck fifth proximal phalanx, approximately 3 mm. No cartilaginous cap. Left: Normal bony mineralization. No acute or healing fracture, dislocation, destructive process. No periostitis. No focal joint narrowing or erosive change. XR/XR toe LT min 2V IMPRESSION: -No acute or healing fracture or arthropathy. -No erosive changes.
== END 2021-08-07 15:40 | disposition home or self-care (01) ==
LOC: HO.XRAY 15:39
PROVIDERS: PCP Internal Medicine; Visit Provider Internal Medicine
DX: M79.674 Pain in right toe(s) (principal); M79.675 Pain in left toe(s)
CPT/HCPCS: 73660

== ENCOUNTER → 2021-09-08 10:19 | Outpatient (BNVA) | payer OTHER, SELFPAY | PROVIDERS: PCP Internal Medicine; Visit Provider Nurse Practitioner Family | DX: K58.2 Mixed irritable bowel syndrome (principal); K21.9 Gastro-esophageal reflux disease without esophagitis; Z79.899 Other long term (current) drug therapy | CPT/HCPCS: 99212 ==

== ENCOUNTER → 2021-10-06 11:01 | Outpatient (REF) | payer OTHER, SELFPAY ==
--- NOTE | ~2021-10-06 | NM_ITS ---
EXAMINATION: BILIARY TRACT IMAGING STUDY WITH CCK ALTERNATIVE (SUPPLEMENT-STIMULATED CHOLESCINTIGRAPHY). CLINICAL INFORMATION: Right upper quadrant abdominal pain.. COMPARISON: CT of the abdomen and pelvis done on 02/06/2021.. TECHNIQUE: Serial gamma scintillation camera images were obtained over the abdomen for a total observation period of 60 minutes following the intravenous administration of 5.0 mCi Tc-99m mebrofenin. FINDINGS: There is good concentration of activity in the liver by 5 minutes post injection. Biliary activity is visualized by 10 minutes. The gallbladder is well visualized by 15 minutes. Small bowel is well visualized by 18 minutes. At 60 minutes post radiopharmaceutical injection, following injection of 8 ounces of Ensure, an additional 60 minutes of images were obtained. There is good emptying of the gallbladder. By the end of the study there is good clearance of activity from the liver and visualization of diffuse small bowel activity. The calculated gallbladder ejection fraction is 46% (normal gallbladder ejection fraction is greater than 33%). Please note that due to non-availability of CCK, alternative methodology using a lactose-free Fatty-meal food supplement (8 ounces of Ensure) was used (Reference article: Journal of nuclear medicine 2003; 44:3876-6933). NM/NM hepatobiliary wo pharm IMPRESSION: Visualization of the gallbladder is evidence of a patent cystic duct and strong evidence against the diagnosis of acute cholecystitis. The common bile duct is patent. Gallbladder emptying and ejection fraction are normal. Liver function appears normal.
== END ==
LOC: HO.NUCMED 11:01
PROVIDERS: PCP Internal Medicine; Visit Provider Nurse Practitioner Family
DX: R10.11 Right upper quadrant pain (principal)
CPT/HCPCS: 78226; A9537

== ENCOUNTER 2022-11-11 13:34 | Outpatient (AMB) | payer OTHER, SELFPAY ==
--- NOTE | 2022-11-11 13:50 | MHC.OFFWIV ---
Intake Vital Signs 11/11/22 13:52 Height 5 ft 9 in Weight 245 lb BMI 36.2 BP 120/98 H Blood Pressure Location Lt brachial Position Sitting Pulse 78 Pulse Oximetry (%) 97 Oxygen Delivery Method Room Air Intake Visit Reasons: EP, Headache, diarrhea, weak Intake Note: Patient here for headache, gait issues,weak and dizziness and hasn't been able to work in 9 days. Patient Tobacco Use Status: Never used Tobacco Allergies aspirin [ASPIRIN] Allergy (Severe, Verified 11/11/22 16:08) Anaphylaxis penicillin V Allergy (Severe, Verified 11/11/22 16:08) anaphylaxis Sulfa (Sulfonamide Antibiotics) [SULFA (SULFONAMIDE ANTIBIOTICS)] Allergy (Intermediate, Verified 11/11/22 16:08) RASH sulfacetamide [From Sulfacet-R] Allergy (Intermediate, Verified 11/11/22 16:08) Throat closes sulfur [From Sulfacet-R] Allergy (Intermediate, Verified 11/11/22 16:08) Throat closes peach [PEACH] Allergy (Unknown, Verified 11/11/22 16:08) UNKNOWN Medication List - Last Reconciled 11/11/22 by Kevin Fuentes MD albuterol sulfate 2.5 mg (3 mL) inhalation Q4-6H PRN azithromycin take 500 mg today (day 1), then 250 mg for 4 days (days 2-5) PO cholecalciferol (vitamin D3) 1,250 mcg PO QWEEK 12 weeks diclofenac sodium 75 mg PO BID PRN 5 days docusate sodium 100 mg PO BEDTIME doxycycline hyclate 100 mg PO BID 5 days famotidine 40 mg PO BEDTIME fluticasone propionate 50 mcg/actuation 2 sprays intranasal DAILY ibuprofen 800 mg PO Q8H PRN 30 days methylcellulose (laxative) (Citrucel) 500 mg PO BID omeprazole 40 mg PO DAILY prednisone 10 mg PO BID 3 days vit,[id number] 29 mg iron- 1 mg 1 tab PO DAILY simethicone (Gas Relief (simethicone)) 180 mg PO BID PRN Ventolin HFA 90 mcg/actuation (albuterol sulfate) 2 puffs inhalation Q6H PRN 30 days NS Do you need a note to return to daycare/school/sports/work: Yes HPI EP, Headache, diarrhea, weak HPI Details 37-year-old female presents to the office for a sick visit. Patient reports that she has been having symptoms of dizziness, headache, stomach ache for the past few days. As a result she has not been going to work. She was seen in the emergency room at [facility]. A full workup did not show anything positive. She would like a note for work. [facility] Medical History Acute diarrhea Class 2 obesity with body mass index (BMI) of 37.0 to 37.9 in adult H. pylori infection Low back pain radiating to lower extremity Rectal bleeding Surgical History History of cervical polypectomy Hx of endoscopy Family History Mother No problems noted. Father No problems noted. Social History Housing: Apartment Alcohol intake: never Patient Tobacco Use Status: Never used Tobacco e-Cigarette/Vaping Use: Never Used Second Hand Smoke Exposure: No service: No Current occupational status: employed Cognitive needs: No Hearing needs: No Vision needs: No Physical Exam Vital Signs: Last Vital Signs Pulse 78 11/11/22 13:52 BP 120/98 H 11/11/22 13:52 Pulse Ox 97 11/11/22 13:52 Oxygen Delivery Method Room Air 11/11/22 13:52 BMI result Body Mass Index 36.2 Const General: cooperative and healthy appearing Nutritional Appearance: well nourished Orientation/consciousness: patient oriented x3 Limitations: no limitations HEENT Head: Yes normal to inspection Eyes General: appearance normal, both eyes and all related structures Neck Neck: Yes normal visual inspection Chest Chest palpation & inspection: normal palpation of entire chest wall Resp Effort & Inspection: normal respiratory effort Neuro General: patient oriented x3 Assessment & Plan Assessment & Plan (1) Bilateral headaches: Code(s): R51.9 - Headache, unspecified Plan: Continue current medications. Note for work given. Coding Level of Care Code Est Pt Level 3 (93212) Diagnoses Bilateral headaches R51.9
[2022-11-11 13:52] VITALS: BP 120/98; PULSE 78; O2SAT 97; BMI 36.2
== END 2022-11-11 16:31 | disposition home or self-care (01) ==
PROVIDERS: PCP Internal Medicine; Visit Provider Internal Medicine
DX: R51.9 Headache, unspecified (principal)
CPT/HCPCS: 99213

== ENCOUNTER 2022-11-15 11:20 | Emergency (ER) | payer OTHER, SELFPAY ==
--- NOTE | ~2022-11-15 | CT_ITS ---
CT head/brain wo IV con CLINICAL INFORMATION: Reason for Exam Intractable posterior headache/ dizziness COMPARISON: No prior CT scan available for comparison. TECHNIQUE: Department standard protocol. This CT examination was performed using dose optimization techniques as appropriate, variously including the following: *Automated exposure control *Adjustment of mA and/or kV according to patient size (this includes techniques or standardized protocols for targeted exams where dose is matched to indication/reason for exam; i.e. extremities or head) *Use of iterative reconstruction technique DLP: 667 mGy-cm FINDINGS: CEREBRAL HEMISPHERES: There is no evidence of intra-axial or extra-axial mass, hemorrhage or acute infarct. BRAIN PARENCHYMA: Normal tineo-white matter differentiation. SUBDURAL SPACE: No bleed. BASAL GANGLIA AND PINEAL GLAND: Unremarkable VENTRICLES: Symmetric and normal in size. CEREBELLUM AND BRAINSTEM: No space-occupying mass, hemorrhage or acute infarct. CEREBELLOPONTINE ANGLES: No lesion found. ORBITS: No intraorbital mass. VESSELS: Unremarkable SKULL BASE: Unremarkable INCLUDED SINUSES AT SKULL BASE: Clear SKULL AND SKIN: No fracture or bone lesion found. CT/CT head/brain wo IV con IMPRESSION: No CT evidence of intracranial space-occupying mass, bleed or infarct.
[2022-11-15 11:40] VITALS: BP 158/93; PULSE 68; RESP 18; TEMP 36.3; O2SAT 99; BMI 34.0
--- NOTE | 2022-11-15 11:40 | ED.HA ---
HPI - Headache General Chief Complaint: Headache Stated Complaint: Headache/Vision problems x14 days Time Seen by Provider: 11/15/22 12:07 Source: patient Mode of arrival: ambulatory Limitations: no limitations History of Present Illness HPI Narrative: Patient is a 37-year-old female presenting to the emergency department with 17 days of constant headache and dizziness. Also reports generalized abdominal pain as well as nausea, vomiting, and diarrhea for the past 5 days. Reports difficulty with ambulation due to dizziness. States was evaluated previously at [facility] for same symptoms and was discharged home with ibuprofen and Fioricet which she reports are not helping to relieve the headache. Was also evaluated at the walk-in on 11/11 for the same symptoms and was to to continue with the ibuprofen and Fioricet. Reports constant blurred vision. Denies chest pain or shortness of breath. Denies fevers. Denies any paresthesias to extremities. Denies recent fall or other trauma. Denies worst at onset, denies worst headache of life. MD elicited complaint: headache Onset description: gradually Location: diffuse Severity: severe Quality & Timing: aching and constant Exacerbating factors: none Relieving factors: nothing Context: occurred at rest Associated symptoms: nausea and vomiting Treatments prior to arrival: ibuprofen and migraine medication Related Data Home Medications Medication Instructions Recorded Confirmed vitamin 1 tab PO DAILY 05/29/20 10/23/21 no.76-iron,carbonyl 29 mg iron-folic acid 1 mg tablet Previous Rx's Medication Instructions Recorded cholecalciferol (vitamin D3) 1,250 1,250 mcg PO QWEEK 12 weeks #12 03/07/21 mcg (50,000 unit) capsule caps simethicone 180 mg capsule (Gas 180 mg PO BID PRN abdominal 03/24/21 Relief (simethicone)) distention #60 caps omeprazole 40 mg capsule,delayed 40 mg PO DAILY #90 caps 03/28/21 release docusate sodium 100 mg capsule 100 mg PO BEDTIME #30 caps 04/23/21 methylcellulose (laxative) 500 mg 500 mg PO BID #180 tabs 09/08/21 tablet (Citrucel) famotidine 40 mg tablet 40 mg PO BEDTIME #30 tabs 10/03/21 prednisone 10 mg tablet 10 mg PO BID 3 days #6 tabs 11/07/21 diclofenac sodium 75 mg 75 mg PO BID PRN pain 5 days #10 04/02/22 tablet,delayed release tabs doxycycline hyclate 100 mg tablet 100 mg PO BID 5 days #10 tabs 09/10/22 fluticasone propionate 50 2 spray intranasal DAILY #16 grams 09/21/22 mcg/actuation nasal spray,suspension ibuprofen 800 mg tablet 800 mg PO Q8H PRN pain 30 days #90 09/21/22 tabs Ventolin HFA 90 mcg/actuation 2 puff inhalation Q6H PRN 09/22/22 aerosol inhaler (albuterol sulfate) shortness of breath or wheezing 30 days #8 grams albuterol sulfate 2.5 mg/3 mL 2.5 mg (3 mL) inhalation Q4-6H PRN 09/23/22 (0.083 %) solution for nebulization shortness of breath or wheezing #90 mL azithromycin 250 mg tablet See Rx Instructions PO .COMPLEX #6 10/16/22 tabs meclizine 25 mg tablet 25 mg PO BID PRN dizziness 30 days 11/12/22 #60 tabs ondansetron 8 mg disintegrating 8 mg PO Q12H PRN nausea and 11/12/22 tablet vomiting 10 days #20 tabs topiramate 25 mg tablet 25 mg PO BEDTIME 30 days #30 tabs 11/12/22 meclizine 12.5 mg tablet 12.5 mg PO TID PRN dizziness #10 11/15/22 tabs sumatriptan succinate 25 mg tablet See Rx Instructions PO .COMPLEX 11/15/22 #10 tabs Allergies Allergy/AdvReac Type Severity Reaction Status Date / Time aspirin [ASPIRIN] Allergy Severe Anaphylaxis Verified 11/15/22 11:46 penicillin V Allergy Severe anaphylaxis Verified 11/15/22 11:46 Sulfa (Sulfonamide Allergy Intermediate RASH Verified 11/15/22 11:46 Antibiotics) [SULFA (SULFONAMIDE ANTIBIOTICS)] sulfacetamide Allergy Intermediate Throat Verified 11/15/22 11:46 [From Sulfacet-R] closes sulfur [From Sulfacet-R] Allergy Intermediate Throat Verified 11/15/22 11:46 closes peach [PEACH] Allergy Unknown UNKNOWN Verified 11/15/22 11:46 Review of Systems Review of Systems: As per HPI. Yes all other systems are reviewed and are negative Constitutional: Constitutional: Reports as per HPI Neurologic: Denies Abnormal speech present PMFSH Past Medical History Medical History Acute diarrhea Class 2 obesity with body mass index (BMI) of 37.0 to 37.9 in adult H. pylori infection Low back pain radiating to lower extremity Rectal bleeding Surgical History History of cervical polypectomy Hx of endoscopy Family History Family History Mother No problems noted. Father No problems noted. Social History Social History Housing: Apartment Alcohol intake: never Patient Tobacco Use Status: Never used Tobacco e-Cigarette/Vaping Use: Never Used Second Hand Smoke Exposure: No Advance Directives: No Advance Directives Information Provided: No service: No Current occupational status: employed Cognitive needs: No Hearing needs: No Vision needs: No Physical Exam Vital Signs: Vital Signs: Last Vital Signs Temp 96.3 F L 11/15/22 16:15 Pulse 88 11/15/22 16:15 Resp 16 11/15/22 16:15 BP 150/88 H 11/15/22 16:15 Pulse Ox 98 11/15/22 16:15 O2 Del Method Room Air 11/15/22 16:15 BMI result Body Mass Index 34.0 Vital signs have been reviewed and appear to be correct. Blood pressure elevated. Heart rate normal. Respiratory rate normal. Temperature normal. Oxygen saturation normal. Const: General: cooperative, healthy appearing and no acute distress Orientation/consciousness: oriented to person, oriented to place, oriented to time and patient oriented x3 Limitations: no limitations HEENT: Head: Yes normocephalic and Yes atraumatic Ears: external ears normal General nose exam: Normal external nose present Face and sinus: Yes face symmetric Mouth: oropharynx normal and moist mucous membranes Throat: Yes uvula midline Eyes: Pupils: Equal, round and reactive pupils present EOM: No Nystagmus present Neck: Neck: Yes normal visual inspection, Yes no meningeal signs and Yes supple Resp: Effort & Inspection: normal respiratory effort and able to speak in complete sentences Auscultation: clear to auscultation bilaterally Cardio: Rate: regular rate Rhythm: regular rhythm Heart sounds: S1 normal heart sound present and S2 normal heart sound present GI: Inspection: Yes normal to inspection Palpation (GI): Soft to palpation, nontender, no guarding and No Rebound tenderness present Auscultation: normoactive bowel sounds : General: Yes no CVA tenderness Back/Spine/Pelvis: Back: no CVA tenderness Skin: General skin exam: elasticity normal and turgor normal Neuro: General: oriented to person, oriented to place, oriented to time, patient oriented x3, gait normal, tone normal, moves all extremities, Normal light touch and pain sensation, no meningeal signs, no focal motor deficits and CN's II-XI intact bilaterally Cranial nerves: Yes Equal, round and reactive pupils present and No Nystagmus present Cognition (Neuro): normal cognition Speech: No Abnormal speech present Gait exam (Neuro): Normal gait present Motor exam (neuro): 5/5 motor strength present throughout and Pronator motor function not present Sensory Exam: Normal double simultaneous stimulation for sensation Coordination: [id number] test normal, [id number] test normal, tandem gait normal, does not sway with eyes open, Romberg test positive and Normal rapid alternating movements of the distal upper extremity present (Neuro) Romberg Test: Positive Pupils: Normal pupillary reactivity/response: bilateral Extrem: General: Yes full ROM, Yes no pedal edema and Yes no calf tenderness Psych: Mental Status: mental status grossly normal Affect: normal affect Thought process: Normal thought process present Course Course Course Narrative: This is an RME: Additional HPI, ROS, PE not included below will be deferred to primary provider. Patient is a 37-year-old female presents emergency department for evaluation of posterior intractble headache, blurred vision, dizziness described is unsteady sensation while walking and feeling of the room spinning, abdominal, diarrhea. She states that she was evaluated at [facility] at some time throughout the past 2 weeks, states that she had blood work done and was advised to go home and take ibuprofen. No focal neurological deficits. Denies numbness or tingling of the extremities, chest pain, shortness of breath, difficulty breathing. She was evaluated at [facility] 4 days ago for the same complaints, was advised to continue current medication regimen. Plan: labs, CT head given intractable headache without recent imaging to exclude ICH/ intracranial mass, placed in WR pending bed availability Medications Administered Discontinued Medications Generic Name Dose Route Start Last Admin Trade Name Sofi PRN Reason Stop Dose Admin Sodium Chloride 1,000 mls @ 999 mls/hr 11/15/22 13:30 11/15/22 16:14 Ns IV 11/15/22 14:30 Infused .Q1H1M [facility] Infusion Meclizine HCl 25 mg 11/15/22 13:19 11/15/22 13:29 Meclizine Hcl 25 Mg Tablet PO 11/15/22 13:20 25 mg ONCE ONE Administration Metoclopramide HCl 10 mg 11/15/22 13:19 11/15/22 13:56 Metoclopramide Hcl 10 Mg/2 Ml Vial IVPUSH 11/15/22 13:20 10 mg ONCE ONE Administration Sumatriptan Succinate 6 mg 11/15/22 15:13 11/15/22 15:19 Sumatriptan Succinate 6 Mg/0.5 Ml Vial SUBCUT 11/15/22 15:14 6 mg ONCE ONE Administration Medical Decision Making Medical Decision Making MDM Narrative: Patient is a 37-year-old female presenting to the emergency department with 17 days of constant headache and dizziness. Also reports generalized abdominal pain as well as nausea, vomiting, and diarrhea for the past 5 days. On exam patient is awake, A+Ox3, VS WNL, afebrile, normal neurological exam without focal deficits, Rhomberg positive, normal finger to nose test, normal heel to lopez, no pronator drift, no nystagmus, ambulates with steady gait, abdomen soft and nontender, no guarding or rebound tenderness, no CVA tenderness. Given reported symptoms and physical exam findings, initial differential includes tension headache, cluster headache, migraine headache, BPPV, labyrinthitis. Less likely ICH. Do not suspect infection as patient is afebrile, not tachycardic or hypotensive. Labs notable for no leukocytosis, no anemia, normal magnesium, no other electrolyte abnormalities, no MARIANELA, normal LFTs. No evidence of infection on UA. CT notable for no acute intracranial abnormality. My interpretation is in agreement with the radiologist's interpretation. 15:19 Patient reports improvement in dizziness after receiving meclizine but states headache has not improved. Will order sumatriptan. 16:14 Patient reports good relief of headache with sumatriptan. Discussed with patient that she should have further evaluation of her symptoms of headache and dizziness with neurologist, will refer patient but feel she is stable for discharge home at this time. Will prescribe meclizine and sumatriptan for dizziness and headaches as patient received good relief with these medications. Instructed patient to follow-up with PCP. Return precautions discussed at bedside. Patient verbalized understanding of and agreement with plan. Differential Diagnosis Differential Diagnoses: The differential diagnosis associated with the presentation includes As per [facility]. Admission/Observation Consideration of admission/observation: Escalation of care including admission/observation considered Lab Data [facility] Lab Attestation statement: I reviewed the patient's lab results. As per MDM. 11/15/22 11:58 11/15/22 11:58 Labs: Lab Results 11/15/22 11/15/22 11/15/22 Range/Units 11:58 11:58 12:45 WBC 9.0 (4.8-10.8) X10*3/uL RBC 4.65 (4.20-5.50) X10*6/uL Hgb 13.4 (12.0-16.0) g/dl Hct 39.7 (37.0-47.0) % MCV 85.4 (80.0-98.0) fL MCH 28.8 (27.0-33.0) pg MCHC 33.8 (31.0-35.0) g/dl RDW 12.2 (11.0-16.0) % Plt Count 203 (160-400) X10*3/uL MPV 11.1 (9.4-12.3) fL Immature Gran % (Auto) 0.4 (0.0-0.4) % Neut % (Auto) 68.8 (45-73) % Lymph % (Auto) 22.0 (20-40) % Geary % (Auto) 6.4 (2-11) % Eos % (Auto) 2.0 (0-4) % Baso % (Auto) 0.4 (0-2) % Lymph # (Auto) 2.0 (1.2-4.9) X10*3/uL Geary # (Auto) 0.6 (0.1-1.2) X10*3/uL Eos # (Auto) 0.2 (0.0-0.4) X10*3/uL Baso # (Auto) 0.0 (0.0-0.2) X10*3/uL Abs Immat Gran (auto) 0.04 H (0.00-0.03) X10*3/uL Absolute Neuts (auto) 6.2 (2.0-8.3) x10*3/uL Absolute Nucleated RBC 0.000 (0.0-0.012) X10*3/uL Nucleated RBC % (auto) 0.0 (0.0-0.2) /100WBC Sodium 140 (135-145) mmol/L Potassium 3.9 (3.3-5.1) mmol/L Chloride 110 H (96-108) mmol/L Carbon Dioxide 22 (22-29) mmol/L Anion Gap 12 (12-20) BUN 15 (9-16) mg/dL Creatinine 0.75 (0.5-1.4) mg/dL Estim Creat Clear Calc 134.6 Estimated GFR > 60 Random Glucose 90 (60-115) mg/dL Calcium 9.5 (8.4-10.2) mg/dL Magnesium 1.9 (1.6-2.6) mg/dL Total Bilirubin 0.2 (0.0-1.0) mg/dL AST 15 (5-31) U/L ALT 19 (0-31) U/L Alkaline Phosphatase 53 (39-117) U/L Total Protein 7.8 (6.5-8.0) g/dL Albumin 4.3 (3.5-5.0) g/dL Lipase 25 (8-78) U/L Beta HCG, Quant < 2 mIU/mL Urine Color Yellow Urine Appearance Clear Urine pH 6.0 (5.0-9.0) Ur Specific [place] 1.020 (1.005-1.025) Urine Protein Negative (Neg-Trace) mg/dL Urine Glucose (UA) Negative (Negative) mg/dL Urine Ketones Negative (Negative) mg/dL Urine Blood Negative (Negative) Urine Nitrite Negative (Negative) Ur Leukocyte Esterase Negative (Negative) Independent Interpretation I performed an independent interpretation of an: CT Scan Interpretation: No acute intracranial abnormality Radiology Impression Discussion of test interpretation with radiology: I have reviewed the radiologist's reading. Radiologist Impression: CT/CT head/brain wo IV con IMPRESSION: No CT evidence of intracranial space-occupying mass, bleed or infarct. ? External Record Review External record reviewed: Inpatient record, Office record and Outpatient record Prescription Management I considered prescription management with: Pain Medication and Other Discharge Plan Discharge Clinical Impression: Headache, Gastroenteritis, Dizziness Patient Disposition: Home, Self-Care Instructions: Gastroenteritis (DC), Acute Headache (DC), Dizziness (ED) Additional Instructions: You have been evaluated in the emergency department today for headache, dizziness, nausea, vomiting, and diarrhea. Your evaluation did not show evidence of medical conditions requiring emergent intervention at this time, and your pain and dizziness improved with medication in the ED. We recommend you take 600 mg ibuprofen every 6 hours or Tylenol 650 mg every 6 hours as needed for pain. If needed, you can alternate these medications so that you take 1 medication every 3 hours. For instance, at noon take ibuprofen, then at 3:00 p.m. take Tylenol, then at 6:00 p.m. take ibuprofen. You are also being prescribed sumatriptan for headache that does not respond to Tylenol/ibuprofen. You are being prescribed meclizine for dizziness, use caution as this medication can cause drowsiness and you should not take this and drink alcohol. Please follow-up with your primary care provider within 2 days. Return to the emergency department if you experience worsening or uncontrolled pain, vision changes, recurrent vomiting, difficulty with normal activities, abnormal behavior, difficulty walking, numbness, weakness, or any other concerning symptoms. Prescriptions: New meclizine 12.5 mg tablet 12.5 mg PO TID PRN (Reason: dizziness) Qty: 10 0RF sumatriptan succinate 25 mg tablet See Rx Instructions .ROUTE .COMPLEX Qty: 10 0RF Rx Instructions: take 1 tab at onset of headache; if no relief may repeat 1 tab after at least 2 hrs; max = 4 tabs/24 hr No Action cholecalciferol (vitamin D3) 1,250 mcg (50,000 unit) capsule 1,250 mcg PO QWEEK 84 Days Qty: 12 0RF Rx Instructions: Cuidar 1 capsula emiliano vez a la semana abner 12 semanas. omeprazole 40 mg capsule,delayed release(DR/EC) 40 mg PO DAILY Qty: 90 3RF famotidine 40 mg tablet 40 mg PO BEDTIME Qty: 30 3RF prednisone 10 mg tablet 10 mg PO BID 3 Days Qty: 6 0RF diclofenac sodium 75 mg tablet,delayed release (DR/EC) 75 mg PO BID PRN (Reason: pain) 5 Days Qty: 10 0RF doxycycline hyclate 100 mg tablet 100 mg PO BID 5 Days Qty: 10 0RF ibuprofen 800 mg tablet 800 mg PO Q8H PRN (Reason: pain) 30 Days Qty: 90 0RF fluticasone propionate 50 mcg/actuation spray,suspension 2 spray intranasal DAILY Qty: 16 5RF albuterol sulfate [Ventolin HFA] 90 mcg/actuation HFA aerosol inhaler 2 puff inhalation Q6H PRN (Reason: shortness of breath or wheezing) 30 Days Qty: 8 1RF albuterol sulfate 2.5 mg /3 mL (0.083 %) solution for nebulization 2.5 mg inhalation Q4-6H PRN (Reason: shortness of breath or wheezing) Qty: 90 0RF azithromycin 250 mg tablet See Rx Instructions PO .COMPLEX Qty: 6 0RF Rx Instructions: take 500 mg today (day 1), then 250 mg for 4 days (days 2-5) PO ondansetron 8 mg tablet,disintegrating 8 mg PO Q12H PRN (Reason: nausea and vomiting) 10 Days Qty: 20 0RF meclizine 25 mg tablet 25 mg PO BID PRN (Reason: dizziness) 30 Days Qty: 60 0RF topiramate 25 mg tablet 25 mg PO BEDTIME 30 Days Qty: 30 1RF PNV 29-1 29 mg iron- 1 mg tablet 1 tab PO DAILY docusate sodium 100 mg capsule 100 mg PO BEDTIME Qty: 30 3RF simethicone [Gas Relief (simethicone)] 180 mg capsule 180 mg PO BID PRN (Reason: abdominal distention) Qty: 60 1RF Citrucel 500 mg tablet 500 mg PO BID Qty: 180 2RF Referrals: Ellie Millard MD [Physician] -
[2022-11-15 12:02] LABS: MANUAL DIFF FLAG NO
[2022-11-15 12:07] LABS: Basophils Percent Auto 0.4 % (0-2); Eosinophils Absolute Auto 0.2 X10*3/uL (0.0-0.4); Hematocrit 39.7 % (37.0-47.0); Hemoglobin 13.4 g/dl (12.0-16.0); Imm Gran Abs Auto 0.04 X10*3/uL (0.00-0.03); Imm Gran Pct Auto 0.4 % (0.0-0.4); Mean Corpuscular HGB Conc 33.8 g/dl (31.0-35.0); Mean Corpuscular Hemoglobin 28.8 pg (27.0-33.0); Mean Corpuscular Volume 85.4 fL (80.0-98.0); Mean Platelet Volume 11.1 fL (9.4-12.3); Monocytes Absolute Auto 0.6 X10*3/uL (0.1-1.2); Monocytes Percent Auto 6.4 % (2-11); Neutrophils Absolute Auto 6.2 x10*3/uL (2.0-8.3); Neutrophils Percent Auto 68.8 % (45-73); Platelet Count 203 X10*3/uL (160-400); Red Blood Count 4.65 X10*6/uL (4.20-5.50); Red Cell Distribution Width 12.2 % (11.0-16.0)
[2022-11-15 12:24] LABS: Alanine Aminotransferase 19 U/L (0-31); Albumin Level 4.3 g/dL (3.5-5.0); Alkaline Phosphatase 53 U/L (39-117); Anion Gap 12 (12-20); Aspartate Amino Transferase 15 U/L (5-31); Bilirubin Total 0.2 mg/dL (0.0-1.0); Blood Urea Nitrogen 15 mg/dL (9-16); Calcium 9.5 mg/dL (8.4-10.2); Carbon Dioxide 22 mmol/L (22-29); Chloride 110 mmol/L (96-108); Creatinine Clr Calc Pharmacy 134.6; Estimated Glomerular Filt Rate > 60; Glucose Random 90 mg/dL (60-115); Lipase 25 U/L (8-78); Magnesium 1.9 mg/dL (1.6-2.6); Potassium 3.9 mmol/L (3.3-5.1); Sodium 140 mmol/L (135-145); Total Protein 7.8 g/dL (6.5-8.0)
[2022-11-15 12:27] LABS: HCG Quantitative < 2 mIU/mL
[2022-11-15 12:53] LABS: Appearance Urine Clear; Color Urine Yellow; Glucose Urine UA Negative (Negative); Leukocyte Esterase Urine Negative (Negative); Nitrite Urine Negative (Negative); Urine Blood Negative (Negative); Urine Ketones Negative (Negative); Urine Protein Negative (Neg-Trace)
[2022-11-15] MEDS: Meclizine HCl 25 MG TABLET PO (13:29)
[2022-11-15] MEDS: Metoclopramide HCl 10 MG/2 ML VIAL IVPUSH (13:56)
[2022-11-15] MEDS: 0.9 % Sodium Chloride 1,000 ML 999 ML IV (13:57)
[2022-11-15] MEDS: SUMAtriptan succinate 6 MG/0.5 ML VIAL SUBCUT (15:19)
--- NOTE | 2022-11-15 15:22 | PC.NURSE ---
pt medicated per MAY for 10/29 headache pain, pt has approx 150ml remaining in ordered NS liter
[2022-11-15 16:15] VITALS: BP 150/88; PULSE 88; RESP 16; TEMP 35.7; O2SAT 98
== END 2022-11-15 16:27 | disposition home or self-care (01) ==
PROVIDERS: Nurse Practitioner Family; Emergency Provider Emergency Medicine; PCP Internal Medicine
DX: R51.9 Headache, unspecified (principal); R42 Dizziness and giddiness; K52.9 Noninfective gastroenteritis and colitis, unspecified
CPT/HCPCS: 36415; 70450; 80053; 81003; 83690; 83735; 84702; 85025; 96361; 96372; 96374; 99283; 99284; J2765; J3030

== ENCOUNTER 2022-11-17 13:48 | Outpatient (REF) | payer OTHER, SELFPAY ==
--- NOTE | 2022-11-17 13:51 | ECG_ITS ---
Test Reason : R00.2 Blood Pressure : / mmHG Vent. Rate : 068 BPM Atrial Rate : 068 BPM P-R Int : 148 ms QRS Dur : 082 ms QT Int : 394 ms P-R-T Axes : 022 026 027 degrees QTc Int : 418 ms Normal sinus rhythm Normal ECG When compared with ECG of 22-JUL-2021 13:12, No significant change was found Referred By: Lyndsay Peñaloza Electronically Signed By:GENO GARDNER
[2022-11-17 14:17] LABS: MANUAL DIFF FLAG NO
[2022-11-17 15:40] LABS: Basophils Percent Auto 0.2 % (0-2); Eosinophils Absolute Auto 0.2 X10*3/uL (0.0-0.4); Eosinophils Percent Auto 2.3 % (0-4); Hematocrit 40.1 % (37.0-47.0); Hemoglobin 13.5 g/dl (12.0-16.0); Imm Gran Abs Auto 0.04 X10*3/uL (0.00-0.03); Imm Gran Pct Auto 0.5 % (0.0-0.4); Lymphocytes Absolute Auto 2.1 X10*3/uL (1.2-4.9); Lymphocytes Percent Auto 25.2 % (20-40); Mean Corpuscular HGB Conc 33.7 g/dl (31.0-35.0); Mean Corpuscular Hemoglobin 28.7 pg (27.0-33.0); Mean Corpuscular Volume 85.3 fL (80.0-98.0); Mean Platelet Volume 11.9 fL (9.4-12.3); Monocytes Absolute Auto 0.6 X10*3/uL (0.1-1.2); Monocytes Percent Auto 6.7 % (2-11); Neutrophils Absolute Auto 5.5 x10*3/uL (2.0-8.3); Neutrophils Percent Auto 65.1 % (45-73); Platelet Count 213 X10*3/uL (160-400); White Blood Count 8.4 X10*3/uL (4.8-10.8)
[2022-11-17 16:25] LABS: Alanine Aminotransferase 20 U/L (0-31); Albumin Level 4.3 g/dL (3.5-5.0); Alkaline Phosphatase 53 U/L (39-117); Anion Gap 13 (12-20); Aspartate Amino Transferase 17 U/L (5-31); Bilirubin Total 0.3 mg/dL (0.0-1.0); Blood Urea Nitrogen 10 mg/dL (9-16); Calcium 9.6 mg/dL (8.4-10.2); Carbon Dioxide 25 mmol/L (22-29); Chloride 106 mmol/L (96-108); Estimated Glomerular Filt Rate > 60; Glucose Random 77 mg/dL (60-115); Potassium 3.9 mmol/L (3.3-5.1); Sodium 140 mmol/L (135-145); Total Protein 7.6 g/dL (6.5-8.0)
== END 2022-11-17 13:49 | disposition home or self-care (01) ==
LOC: HO.LAB 13:48
PROVIDERS: PCP Internal Medicine; Visit Provider Internal Medicine
DX: R00.2 Palpitations (principal); R42 Dizziness and giddiness
CPT/HCPCS: 36415; 80053; 85025; 93005

== ENCOUNTER 2022-11-18 13:19 | Outpatient (AMB) | payer OTHER, SELFPAY ==
--- NOTE | 2022-11-18 13:19 | MHC.PC.OV ---
Vital Signs 11/18/22 13:21 11/18/22 14:17 Height 5 ft 9 in Weight 243 lb BMI 35.9 BP 140/108 H 140/100 H Blood Pressure Location Lt brachial Lt brachial Position Sitting Sitting Intake Visit Reasons: migraines Intake Note: Patient here for severe migraine follow up, cardiology referral Sole Conditioner Required: No Accompanied by: Self / Same As Patient Allergies aspirin [ASPIRIN] Allergy (Severe, Verified 11/18/22 13:45) Anaphylaxis penicillin V Allergy (Severe, Verified 11/18/22 13:45) anaphylaxis Sulfa (Sulfonamide Antibiotics) [SULFA (SULFONAMIDE ANTIBIOTICS)] Allergy (Intermediate, Verified 11/18/22 13:45) RASH sulfacetamide [From Sulfacet-R] Allergy (Intermediate, Verified 11/18/22 13:45) Throat closes sulfur [From Sulfacet-R] Allergy (Intermediate, Verified 11/18/22 13:45) Throat closes peach [PEACH] Allergy (Unknown, Verified 11/18/22 13:45) UNKNOWN Medication List - Last Reconciled 11/18/22 by Lyndsay Peñalzoa MD albuterol sulfate 2.5 mg (3 mL) inhalation Q4-6H PRN docusate sodium 100 mg PO BEDTIME famotidine 40 mg PO BEDTIME fluticasone propionate 50 mcg/actuation 2 sprays intranasal DAILY ibuprofen 800 mg PO Q8H PRN 30 days meclizine 12.5 mg PO TID PRN meclizine 25 mg PO BID PRN 30 days methylcellulose (laxative) (Citrucel) 500 mg PO BID ondansetron 8 mg PO Q12H PRN 10 days sumatriptan succinate take 1 tab at onset of headache; if no relief may repeat 1 tab after at least 2 hrs; max = 4 tabs/24 hr Ventolin HFA 90 mcg/actuation (albuterol sulfate) 2 puffs inhalation Q6H PRN 30 days NS Tobacco use date assessed: 11/18/22 Dental Screening Dental Screen Date: 11/18/22 Did you have a dental visit in the last 12 months?: No Did you have a dental problem in the last 6 months where you did not have access to dental care?: No Was dental information given to patient?: Patient has dentist HPI HPI Comments History of Present Illness Details This is a 37-year-old female with migraines, constipation, GERD and mild asthma that comes today complaining of headaches that happens on a daily basis. Head CT was negative. She was just prescribed sumatriptan and I will add topiramate at bedtime for migraine prophylaxis. Patient was advised that topiramate can cause confusion, sleepiness and extremity numbness and tingling. Has a referral with Neurology in February 2023. Constipation stable with medications. GERD stable with famotidine. Use rescue inhaler 1 to 2 times a month. Also complains of some chest pain that happens on exertion located in the left side of the chest an EKG was normal. Will order stress test. Has associated palpitations and will order Holter monitor. Labs were also within normal limits. [facility] Medical History (Updated 11/18/22 @ 14:19 by Lyndsay Peñaloza MD) Acute diarrhea Class 2 obesity with body mass index (BMI) of 37.0 to 37.9 in adult H. pylori infection Low back pain radiating to lower extremity Rectal bleeding Surgical History History of cervical polypectomy Hx of endoscopy Family History Mother No problems noted. Father No problems noted. Social History Housing: Apartment Alcohol intake: never Patient Tobacco Use Status: Never used Tobacco e-Cigarette/Vaping Use: Never Used Second Hand Smoke Exposure: No service: No Current occupational status: employed Current occupational exposures/hazards: No Cognitive needs: No Hearing needs: No Vision needs: Yes Questionnaire PHQ-9 Over the last 2 weeks, how often have you been bothered by any of the following problems? 1. Little interest or pleasure in doing things: not at all 2. Feeling down, depressed, or hopeless: not at all 3. Trouble falling or staying asleep, or sleeping too much: not at all 4. Feeling tired or having little energy: not at all 5. Poor appetite or overeating: not at all 6. Feeling bad about yourself - or that you are a failure or have let yourself or your family down: not at all 7. Trouble concentrating on things, such as reading the newspaper or watching television: not at all 8. Moving or speaking so slowly that other people could have noticed. Or the opposite - being so fidgety or restless that you have been moving around a lot more than usual: not at all 9. Thoughts that you would be better off or of hurting yourself in some way: not at all Total score: 0 Depression Screening Interpretation: Negative 68573 - PHQ-9 Billing: Yes Source: Developed by Drs. Js Ornelas, Kortney Raymundo, Hipolito Delarosa and colleagues, with an educational jozef from [employer]. Thrive Questionnaire Date Thrive assessed: 11/18/22 I am a: Patient What is your living situation today?: I have a steady place to live Within the past 12 months, did the food you bought not last and you didn't have the money to get more?: Never true Within the past 12 months, did you worry whether your food would run out before you got money to buy more?: Never true Do you have trouble paying for medicines?: No Do you have trouble getting transportation to medical appointments?: No Do you have trouble paying your heating and electricity bill?: No Do you have trouble taking care of your child, family member or friend?: No Do you have trouble with day-to-day activities such as bathing, preparing meals, shopping, managing finances, etc.?: No Are you currently unemployed and looking for a job?: No Are you interested in more education?: No Please select the resources that you would like help with: None Currently or been in a relationship where the following occur: no concerns reported AUDIT C Alcohol Use Questionnaire (AUDIT-C) 1. How often do you have a drink containing alcohol?: Never Total Score: 0 LOREN-7 AMB Questionnaire LOREN-7 Date LOREN - 7 assessed: 11/18/22 Feeling nervous, anxious, or on edge: 0 = Not at all Not being able to stop or control worryin = Not at all Worrying too much about different things: 0 = Not at all Trouble relaxin = Not at all Being so restless that it is hard to sit still: 0 = Not at all Becoming easily annoyed or irritable: 0 = Not at all Feeling afraid as if something awful might happen: 0 = Not at all Total LOREN-7 score (0-4 normal; 5-9 mild; 10-14 moderate; 15-21 severe): 0 Source: Developed by Drs. Js Ornelas, Kortney Raymundo, Hipolito Delarosa and colleagues, with an educational jozef from [employer]. LOREN-7 Assessment Billing LOREN-7 Assessment Tool: LOREN-7 Assessment 05240 Review of Systems Const All systems reviewed & are unremarkable except as noted in HPI and below Eyes Reports no additional complaints, Denies change in vision and Denies other visual disturbances Card Denies chest pain at rest, Denies chest pain with activity, Denies edema, Denies irregular heart rhythm, Denies claudication, Denies dyspnea, Denies dyspnea on exertion, Denies orthopnea, Denies paroxysmal nocturnal dyspnea and Denies slow heart rate Resp Denies cough, Denies dyspnea and Denies dyspnea on exertion GI Denies abdominal pain, Denies change in bowel habits, Denies excessive flatus, Denies nausea and Denies vomiting Denies urinary incontinence, Denies urinary hesitancy and Denies urinary urgency Musc Denies abnormal gait, Denies atrophy, Denies deformity and Denies limited range of motion Skin/Breast Denies bleeding lesions, Denies changing lesions and Denies rash Neuro Denies abnormal gait and Denies lack of coordination Physical exam (Primary Care) Vital Signs: Last Vital Signs BP 140/108 H 11/18/22 13:21 BMI result Body Mass Index 35.9 Tobacco/Smoking Status: Tobacco use Status Tobacco use date assessed 11/18/22 11/18/22 13:32 Patient Tobacco Use Status Never used Tobacco 11/18/22 13:32 e-Cigarette/Vaping Use Never Used 11/18/22 13:32 PHQ-9: PHQ-9 Score PHQ-9: Total score 0 11/18/22 13:49 Depression Screening Interpretation: Negative Thrive Assessment: Date of Thrive Assessment Date Thrive assessed 11/18/22 11/18/22 13:32 Currently or been in a relationship where the following occur: no concerns reported Eyes General: appearance normal, both eyes and all related structures Eyelids: Yes eyelids normal Conjunctivae: conjunctivae normal Neck Neck: Yes normal visual inspection and Yes supple Resp Effort & Inspection: normal respiratory effort Auscultation: clear to auscultation bilaterally Cardio Jugular venous distension: no JVD Rate: regular rate Rhythm: regular rhythm Heart sounds: S1 normal heart sound present and S2 normal heart sound present Extrem General: Yes full ROM Assessment and Plan Assessment & Plan (1) Chest pain: Code(s): R07.9 - Chest pain, unspecified Plan: Will to stress test. EKG was normal. (2) Migraine: Code(s): G43.909 - Migraine, unspecified, not intractable, without status migrainosus Plan: Start sumatriptan as needed. Start Topamax at bedtime for migraine prophylaxis. (3) Chronic idiopathic constipation: Code(s): K59.04 - Chronic idiopathic constipation Plan: Continue docusate as needed. (4) GERD (gastroesophageal reflux disease): Code(s): K21.9 - Gastro-esophageal reflux disease without esophagitis Plan: Continue famotidine. (5) Mild asthma: Code(s): J45.909 - Unspecified asthma, uncomplicated Plan: Use rescue inhaler as needed. Orders: Orders CA stress test Today R07.9 - Chest pain, unspecified ECG holter monitor 24 hour Today R00.2 - Palpitations Medications: New topiramate 25 mg PO BEDTIME 90 days 90 tabs 1RF G43.909 - Migraine, unspecified, not intractable, without status migrainosus Refilled docusate sodium 100 mg PO BEDTIME 30 caps 3RF K59.00 - Constipation, unspecified famotidine 40 mg PO BEDTIME 30 tabs 3RF K21.9 - Gastro-esophageal reflux disease without esophagitis Coding Level of Care Code Est Pt Level 4 (74580) Diagnoses Chest pain R07.9 Migraine G43.909 Chronic idiopathic constipation K59.04 GERD (gastroesophageal reflux disease) K21.9 Mild asthma J45.909 Additional Codes LOREN-7 Assessment Billing - LOREN-7 Assessment Tool: LOREN-7 Assessment [id number] ([id number]) Time Spent (min) 24
[2022-11-18 13:21] VITALS: BP 140/108; BMI 35.9
[2022-11-18 14:17] VITALS: BP 140/100
== END 2022-11-18 13:55 | disposition home or self-care (01) ==
PROVIDERS: PCP Internal Medicine; Visit Provider Internal Medicine
DX: R07.9 Chest pain, unspecified (principal); G43.909 Migraine, unspecified, not intractable, without status migrainosus; K21.9 Gastro-esophageal reflux disease without esophagitis; J45.909 Unspecified asthma, uncomplicated; K59.04 Chronic idiopathic constipation
CPT/HCPCS: 99214

== ENCOUNTER 2022-12-01 10:25 | Outpatient (AMB) | payer OTHER, SELFPAY ==
[2022-12-01 10:31] VITALS: BP 122/78; PULSE 87; O2SAT 98; BMI 35.7
--- NOTE | 2022-12-01 10:31 | MHC.PC.OV ---
Vital Signs 12/01/22 10:31 Height 5 ft 9 in Weight 241 lb 8 oz BMI 35.7 BP 122/78 Blood Pressure Location Lt brachial Position Sitting Pulse 87 Pulse Source Pulse Oximeter Pulse Oximetry (%) 98 Oxygen Delivery Method Room Air Intake Visit Reasons: Dizziness/Diarrhea/Balance Issues Intake Note: Pt here for ongoing migraine since November 02 while pt was on vacation. Pt is requesting blood work due to all the dizziness and diarrhea. Also, requesting a letter to be out of work for a months until pt get the FMLA forms are drop off on the office. Booking Officer Required: Yes Booking Officer Language: Icelandic Accompanied by: Self / Same As Patient Allergies aspirin [ASPIRIN] Allergy (Severe, Verified 12/01/22 10:40) Anaphylaxis penicillin V Allergy (Severe, Verified 12/01/22 10:40) anaphylaxis Sulfa (Sulfonamide Antibiotics) [SULFA (SULFONAMIDE ANTIBIOTICS)] Allergy (Intermediate, Verified 12/01/22 10:40) RASH sulfacetamide [From Sulfacet-R] Allergy (Intermediate, Verified 12/01/22 10:40) Throat closes sulfur [From Sulfacet-R] Allergy (Intermediate, Verified 12/01/22 10:40) Throat closes peach [PEACH] Allergy (Unknown, Verified 12/01/22 10:40) UNKNOWN Medication List - Last Reconciled 12/01/22 by Ariel Lua PA-C albuterol sulfate 2.5 mg (3 mL) inhalation Q4-6H PRN docusate sodium 100 mg PO BEDTIME famotidine 40 mg PO BEDTIME fluticasone propionate 50 mcg/actuation 2 sprays intranasal DAILY ibuprofen 800 mg PO Q8H PRN 30 days meclizine 12.5 mg PO TID PRN meclizine 25 mg PO BID PRN 30 days methylcellulose (laxative) (Citrucel) 500 mg PO BID ondansetron 8 mg PO Q12H PRN 10 days sumatriptan succinate take 1 tab at onset of headache; if no relief may repeat 1 tab after at least 2 hrs; max = 4 tabs/24 hr topiramate 50 mg PO BEDTIME 30 days Ventolin HFA 90 mcg/actuation (albuterol sulfate) 2 puffs inhalation Q6H PRN 30 days NS Tobacco use date assessed: 11/18/22 Dental Screening Dental Screen Date: 12/01/22 Did you have a dental visit in the last 12 months?: Yes Did you have a dental problem in the last 6 months where you did not have access to dental care?: No Was dental information given to patient?: Patient has dentist HPI Dizziness/Diarrhea/Balance Issues HPI Details Patient is a 37-year-old female here today for a problem visit. Patient has a past medical history significant for mild asthma, migraines, obesity. Reports having a migraines history and reports her migraines have become more frequent and more severe causing her to miss days of work. She reports when she has migraines she does get GI symptoms inch is nausea, diarrhea along with head pain and difficulties with concentration. He reports having to use more of her sumatriptan at higher doses to be able to control her migraines. She has upcoming appointment with a neurologist in January of 2023. [facility] Medical History Acute diarrhea Class 2 obesity with body mass index (BMI) of 37.0 to 37.9 in adult H. pylori infection Low back pain radiating to lower extremity Rectal bleeding Surgical History Hx of endoscopy History of cervical polypectomy Family History Mother No problems noted. Father No problems noted. Social History Housing: Apartment Alcohol intake: never Patient Tobacco Use Status: Never used Tobacco e-Cigarette/Vaping Use: Never Used Second Hand Smoke Exposure: No service: No Current occupational status: employed Current occupational exposures/hazards: No Cognitive needs: No Hearing needs: No Vision needs: Yes Questionnaire Thrive Questionnaire Date Thrive assessed: 11/18/22 LOREN-7 AMB Questionnaire LOREN-7 Date LOREN - 7 assessed: 11/18/22 Source: Developed by Drs. Js Ornelas, Kortney Raymundo, Hipolito Delarosa and colleagues, with an educational jozef from [employer]. Review of Systems Const Reports headache(s) Eyes Denies loss of vision ENT Reports headache(s) Card Denies chest pain, Denies leg edema and Denies lightheadedness Resp Denies cough, Denies hemoptysis and Denies wheezing GI Denies abdominal pain, Denies melena, Denies constipation, Denies diarrhea and Denies vomiting Denies urinary frequency, Denies dysuria and Denies urinary urgency Musc Denies arthralgias, Denies joint swelling, Denies numbness and Denies tingling Neuro Denies Abnormal speech present, Denies behavioral changes, Reports headache(s), Denies loss of vision, Denies memory loss, Denies numbness and Denies tingling Psych Denies anxiety, Denies behavioral changes, Denies depression, Denies memory loss and Denies panic attacks Shree/Lymph Denies easy bleeding and Denies easy bruising Aller/Immun Denies wheezing Physical exam (Primary Care) Vital Signs: Last Vital Signs Pulse 87 12/01/22 10:31 BP 122/78 12/01/22 10:31 Pulse Ox 98 12/01/22 10:31 Oxygen Delivery Method Room Air 12/01/22 10:31 BMI result Body Mass Index 35.7 Tobacco/Smoking Status: Tobacco use Status Tobacco use date assessed 11/18/22 12/01/22 10:31 Patient Tobacco Use Status Never used Tobacco 12/01/22 10:31 e-Cigarette/Vaping Use Never Used 12/01/22 10:31 Thrive Assessment: Date of Thrive Assessment Date Thrive assessed 11/18/22 12/01/22 10:31 Const General: healthy appearing, no acute distress, alert and awake Nutritional Appearance: well nourished Orientation/consciousness: oriented to person, oriented to place and oriented to time HENDC Ears: TM's normal bilaterally General nose exam: Normal nasal mucous membranes and turbinates present Eyes Conjunctivae: conjunctivae normal Sclerae: sclerae normal Pupils: Equal, round and reactive pupils present Neck Neck: Yes no lymphadenopathy and Yes no JVD Thyroid: Thyroid normal Carotids: no bruits Resp Effort & Inspection: normal respiratory effort and not tachypneic Auscultation: no crackles, no rales, no rhonchi and no wheezes Cardio Rate: regular rate Rhythm: regular rhythm Heart sounds: no murmurs and normal S1 and S2 GI Palpation (GI): Soft to palpation, nontender, no hepatomegaly and no splenomegaly Auscultation: normal bowel sounds Skin General skin exam: no rashes or lesions noted and dry skin Neuro General: oriented to person, oriented to place and oriented to time Cranial nerves: Yes Equal, round and reactive pupils present Speech: No Abnormal speech present Gait exam (Neuro): Normal gait present Motor exam (neuro): no tremor noted Extrem Right upper extremity: full ROM Left upper extremity: full ROM Right lower extremity: full ROM; no edema Left lower extremity: full ROM; no edema Psych Mental Status: mental status grossly normal Speech and movement: Normal speech and movement present Affect: normal affect Attitude: cooperative Thought process: Normal thought process present Assessment and Plan Assessment & Plan (1) Migraine: Code(s): G43.909 - Migraine, unspecified, not intractable, without status migrainosus Qualifiers: Intractability: not intractable Migraine type: without aura Status migrainosus presence: without status migrainosus Qualified Code(s): G43.009 - Migraine without aura, not intractable, without status migrainosus Plan: Patient reporting more frequent more severe migraines as of late. Has upcoming appointment with Neurology. Has been having to take more sumatriptan to help control her migraines. She reports she in unable to work as her migraines cause her to be shaky, have diarrhea and difficulty with concentrating on job tasks. She will go to her human resources get FMLA paperwork. Discussed daily verses prophylactic treatment for migraines. Advised on magnesium and vitamin B supplementation. Will increase his Imitrex to 100 mg p.r.n.. Advised to speak with her gauge machine operator about her hormones as she does have signs and symptoms of PCOS which may be a likely contributor to her migraines. Medications: New sumatriptan succinate 100 mg orally; 30 days 10 tabs 1RF G43.009 - Migraine without aura, not intractable, without status migrainosus Discontinued sumatriptan succinate Discontinued Reason: Doctor's Order take 1 tab at onset of headache; if no relief may repeat 1 tab after at least 2 hrs; max = 4 tabs/24 hr 10 tabs 0RF Coding Level of Care Code Est Pt Level 3 (16510) Diagnoses Migraine without aura and without status migrainosus, not intractable G43.009 Intractability: not intractable Migraine type: without aura Status migrainosus presence: without status migrainosus
== END 2022-12-01 11:34 | disposition home or self-care (01) ==
PROVIDERS: PCP Internal Medicine; Visit Provider Physician Assistant
DX: G43.009 Migraine without aura, not intractable, without status migrainosus (principal)
CPT/HCPCS: 99213

== ENCOUNTER → 2022-12-21 14:56 | Outpatient (REF) | payer OTHER, SELFPAY ==
--- NOTE | 2022-12-21 15:03 | HM_ITS ---
* Total monitoring time 1 day. * Underlying rhythm is sinus. Average ventricular rate 85/Min. Range 50 to 131/Min. * About 29% of the time, rate greater than 100/Min. * Very rare supraventricular and ventricular ectopy. * No significant pauses or heart blocks. * Chest pain in patient diary correlates with sinus rhythm. MTDD
== END ==
LOC: HO.CARD 14:56
PROVIDERS: PCP Internal Medicine; Visit Provider Internal Medicine
DX: R07.9 Chest pain, unspecified (principal); R00.2 Palpitations
CPT/HCPCS: 93225

== ENCOUNTER → 2022-12-21 15:03 | Outpatient (BNV) | payer OTHER, SELFPAY | PROVIDERS: PCP Internal Medicine; Visit Provider Internal Medicine | DX: I47.10 Supraventricular tachycardia, unspecified (principal) | CPT/HCPCS: 93227 ==

== ENCOUNTER 2023-08-09 11:37 | Outpatient (AMB) | payer OTHER, SELFPAY ==
--- NOTE | 2023-08-09 11:37 | MHC.OFFWIV ---
Intake Vital Signs 08/09/23 11:38 Height 5 ft 9 in Weight 253 lb BMI 37.4 BP 112/84 Blood Pressure Location Rt brachial Position Sitting Pulse 78 Pulse Source Pulse Oximeter Temp 98 F Temp Source Oral Pulse Oximetry (%) 99 Oxygen Delivery Method Room Air Intake Visit Reasons: ep /both legs in pain and a burning feeling Intake Note: Pt is here today for bath leg pain, pt states its a burning feeling also started 2 wks ago Patient Tobacco Use Status: Never used Tobacco Allergies aspirin [ASPIRIN] Allergy (Severe, Verified 08/09/23 12:13) Anaphylaxis penicillin V Allergy (Severe, Verified 08/09/23 12:13) anaphylaxis Sulfa (Sulfonamide Antibiotics) [SULFA (SULFONAMIDE ANTIBIOTICS)] Allergy (Intermediate, Verified 08/09/23 12:13) RASH sulfacetamide [From Sulfacet-R] Allergy (Intermediate, Verified 08/09/23 12:13) Throat closes sulfur [From Sulfacet-R] Allergy (Intermediate, Verified 08/09/23 12:13) Throat closes peach [PEACH] Allergy (Unknown, Verified 08/09/23 12:13) UNKNOWN Do you need a note to return to daycare/school/sports/work: No HPI HPI Comments History of Present Illness Details Patient presents to the walk-in today for sick visit Complaining of burning pain bilaterally to both lower legs from shins the ankles for last one month Denies injury, trauma, falls Denies swelling, numbness Recently seen in the emergency room for same, was told to follow up with her primary care doctor. Was not able to get a follow up appointment with PCP so presented to the walk-in Denies EtOH use, diabetes Pain is worse in the night often waking her up and making it difficult to sleep [facility] Medical History Acute diarrhea Class 2 obesity with body mass index (BMI) of 37.0 to 37.9 in adult H. pylori infection Low back pain radiating to lower extremity Rectal bleeding Surgical History Hx of endoscopy History of cervical polypectomy Family History Mother No problems noted. Father No problems noted. Social History Housing: Apartment Alcohol intake: never Patient Tobacco Use Status: Never used Tobacco e-Cigarette/Vaping Use: Never Used Second Hand Smoke Exposure: No service: No Current occupational status: employed Current occupational exposures/hazards: No Cognitive needs: No Hearing needs: No Vision needs: Yes Review of Systems Const All systems reviewed & are unremarkable except as noted in HPI and below Physical Exam Vital Signs: Last Vital Signs Temp 98 F 08/09/23 11:38 Pulse 78 08/09/23 11:38 BP 112/84 08/09/23 11:38 Pulse Ox 99 08/09/23 11:38 Oxygen Delivery Method Room Air 08/09/23 11:38 BMI result Body Mass Index 37.4 General: awake, alert, oriented. Answers questions appropriately. Fully engaged in examination. Skin: warm, dry, intact HEENT: Normocephalic. Hearing intact. Cardiac: External chest normal in appearance. Respiratory: No cough, audible wheezing or stridor. Abdomen: without gross distension. MS: No obvious swelling or deformities. Bilateral lower extremities: No swelling. Light touch sensation intact. DTR intact. Positive DP & PT pulses Neurological: Oriented to person, place, time and situation. Thought process intact. No gait abnormalities appreciated. Psychiatric: Appropriate mood and affect. Good judgment and insight. Assessment & Plan Assessment & Plan (1) Neuropathy: Code(s): G62.9 - Polyneuropathy, unspecified Plan Amitriptyline 25 mg at bedtime. Patient advised on cautions for use. Follow up with PCP, may benefit from nerve conduction study. All questions and concerns were answered, patient agrees to the plan Follow up with PCP or return here for any new or worsening symptoms. Coding Level of Care Code Est Pt Level 3 (14152) Diagnoses Neuropathy G62.9
[2023-08-09 11:38] VITALS: BP 112/84; PULSE 78; TEMP 36.6; O2SAT 99; BMI 37.4
== END 2023-08-09 13:39 | disposition home or self-care (01) ==
PROVIDERS: PCP Internal Medicine; Visit Provider Registered Nurse Emergency
DX: G62.9 Polyneuropathy, unspecified (principal)
CPT/HCPCS: 99213

== ENCOUNTER 2023-08-12 14:26 | Outpatient (AMB) | payer OTHER, SELFPAY ==
[2023-08-12 14:35] VITALS: BP 112/80; BMI 37.1
--- NOTE | 2023-08-12 14:35 | MHC.PC.OV ---
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 Accompanied by: Self / Same As Patient Allergies aspirin [ASPIRIN] Allergy (Severe, Verified 08/12/23 14:44) Anaphylaxis penicillin V Allergy (Severe, Verified 08/12/23 14:44) anaphylaxis Sulfa (Sulfonamide Antibiotics) [SULFA (SULFONAMIDE ANTIBIOTICS)] Allergy (Intermediate, Verified 08/12/23 14:44) RASH sulfacetamide [From Sulfacet-R] Allergy (Intermediate, Verified 08/12/23 14:44) Throat closes sulfur [From Sulfacet-R] Allergy (Intermediate, Verified 08/12/23 14:44) Throat closes peach [PEACH] Allergy (Unknown, Verified 08/12/23 14:44) UNKNOWN Medication List - Last Reconciled 08/12/23 by Lyndsay Peñaloza MD albuterol sulfate 2.5 mg (3 mL) inhalation Q4-6H PRN amitriptyline 25 mg PO BEDTIME blood pressure monitor (Blood Pressure Kit) As directed docusate sodium 100 mg PO BEDTIME fluticasone propionate 50 mcg/actuation 2 sprays intranasal DAILY ibuprofen 800 mg PO Q8H PRN 30 days meclizine 12.5 mg PO TID PRN methylcellulose (laxative) (Citrucel) 500 mg PO BID ondansetron 8 mg PO Q12H PRN 10 days sumatriptan succinate 100 mg orally; 30 days topiramate 50 mg PO BEDTIME 30 days Ventolin HFA 90 mcg/actuation (albuterol sulfate) 2 puffs inhalation Q6H PRN 30 days NS Tobacco use date assessed: 08/12/23 Dental Screening Dental Screen Date: 08/12/23 Did you have a dental visit in the last 12 months?: Yes Did you have a dental problem in the last 6 months where you did not have access to dental care?: No Was dental information given to patient?: Patient has dentist HPI HPI Comments History of Present Illness Details This is a 38-year-old female with mild asthma, chronic idiopathic constipation, migraines and PCOS that comes today complaining of burning like pain in both legs. Has tried gabapentin and amitriptyline with no significant relieved. I advised her to continue ibuprofen as needed. Asthma has been stable and she use rescue inhaler less than once a month. Constipation well controlled with Citrucel. Migraines have been less frequent and less intense with Topamax which needs to be refill. She has PCOS and complains of facial hair that bothers her. She has tried metformin in the past but was giving her abdominal discomfort. I will start her on spironolactone. No chest pain or shortness a breath. [facility] Medical History (Updated 08/13/23 @ 15:07 by Lyndsay Peñaloza MD) Rectal bleeding H. pylori infection Class 2 obesity with body mass index (BMI) of 37.0 to 37.9 in adult Acute diarrhea Low back pain radiating to lower extremity Surgical History Hx of endoscopy History of cervical polypectomy Family History Mother No problems noted. Father No problems noted. Social History Housing: Apartment Alcohol intake: never Patient Tobacco Use Status: Never used Tobacco e-Cigarette/Vaping Use: Never Used Second Hand Smoke Exposure: No service: No Current occupational status: employed Current occupational exposures/hazards: No Cognitive needs: No Hearing needs: No Vision needs: Yes Questionnaire PHQ-9 Over the last 2 weeks, how often have you been bothered by any of the following problems? 1. Little interest or pleasure in doing things: not at all 2. Feeling down, depressed, or hopeless: not at all 3. Trouble falling or staying asleep, or sleeping too much: not at all 4. Feeling tired or having little energy: not at all 5. Poor appetite or overeating: not at all 6. Feeling bad about yourself - or that you are a failure or have let yourself or your family down: not at all 7. Trouble concentrating on things, such as reading the newspaper or watching television: not at all 8. Moving or speaking so slowly that other people could have noticed. Or the opposite - being so fidgety or restless that you have been moving around a lot more than usual: not at all 9. Thoughts that you would be better off or of hurting yourself in some way: not at all Total score: 0 Depression Screening Interpretation: Negative Depression Screening Done: Yes 04258 - PHQ-9 Billing: Yes Source: Developed by Drs. Js Ornelas, Kortney Raymundo, Hipolito Delarosa and colleagues, with an educational jozef from [employer]. Thrive Questionnaire Date Thrive assessed: 08/12/23 I am a: Patient What is your living situation today?: I have a steady place to live Within the past 12 months, did the food you bought not last and you didn't have the money to get more?: Never true Within the past 12 months, did you worry whether your food would run out before you got money to buy more?: Never true Do you have trouble paying for medicines?: No Do you have trouble getting transportation to medical appointments?: No Do you have trouble paying your heating and electricity bill?: No Do you have trouble taking care of your child, family member or friend?: No Do you have trouble with day-to-day activities such as bathing, preparing meals, shopping, managing finances, etc.?: No Are you currently unemployed and looking for a job?: No Are you interested in more education?: No Please select the resources that you would like help with: None Currently or been in a relationship where the following occur: no concerns reported THRIVE Score: 0 AUDIT C Alcohol Use Questionnaire (AUDIT-C) 1. How often do you have a drink containing alcohol?: Never Total Score: 0 Score Reviewed/Action Taken: No LOREN-7 AMB Questionnaire LOREN-7 Date LOREN - 7 assessed: 08/12/23 Feeling nervous, anxious, or on edge: 0 = Not at all Not being able to stop or control worryin = Not at all Worrying too much about different things: 0 = Not at all Trouble relaxin = Not at all Being so restless that it is hard to sit still: 0 = Not at all Becoming easily annoyed or irritable: 0 = Not at all Feeling afraid as if something awful might happen: 0 = Not at all Total LOREN-7 score (0-4 normal; 5-9 mild; 10-14 moderate; 15-21 severe): 0 Source: Developed by Drs. Js Ornelas, Kortney Raymundo, Hipolito Delarosa and colleagues, with an educational jozef from [employer]. LOREN-7 Assessment Billing LOREN-7 Assessment Tool: OLREN-7 Assessment 29545 Review of Systems Const All systems reviewed & are unremarkable except as noted in HPI and below Card Denies chest pain at rest, Denies chest pain with activity, Denies edema, Denies irregular heart rhythm, Denies claudication, Denies dyspnea, Denies dyspnea on exertion, Denies orthopnea, Denies paroxysmal nocturnal dyspnea and Denies slow heart rate Resp Denies cough, Denies dyspnea and Denies dyspnea on exertion Physical exam (Primary Care) Vital Signs: Last Vital Signs BP 112/80 08/12/23 14:35 BMI result Body Mass Index 37.1 Tobacco/Smoking Status: Tobacco use Status Tobacco use date assessed 08/12/23 08/12/23 14:41 Patient Tobacco Use Status Never used Tobacco 08/12/23 14:41 e-Cigarette/Vaping Use Never Used 08/12/23 14:41 PHQ-9: PHQ-9 Score PHQ-9: Total score 0 08/12/23 14:45 Depression Screening Interpretation: Negative Thrive Assessment: Date of Thrive Assessment Date Thrive assessed 08/12/23 08/12/23 14:41 Currently or been in a relationship where the following occur: no concerns reported Resp Effort & Inspection: normal respiratory effort Auscultation: clear to auscultation bilaterally Cardio Jugular venous distension: no JVD Rate: regular rate Rhythm: regular rhythm Heart sounds: S1 normal heart sound present and S2 normal heart sound present Extrem General: Yes full ROM Assessment and Plan Assessment & Plan (1) Mild asthma: Code(s): J45.909 - Unspecified asthma, uncomplicated Plan: Use rescue inhaler as needed. (2) Chronic idiopathic constipation: Code(s): K59.04 - Chronic idiopathic constipation Plan: Continue Citrucel as needed. (3) Migraine: Code(s): G43.909 - Migraine, unspecified, not intractable, without status migrainosus Qualifiers: Migraine type: without aura Status migrainosus presence: without status migrainosus Intractability: not intractable Qualified Code(s): G43.009 - Migraine without aura, not intractable, without status migrainosus Plan: Continue sumatriptan as needed. Continue Topamax for migraine prophylaxis. (4) PCOS (polycystic ovarian syndrome): Code(s): E28.2 - Polycystic ovarian syndrome Plan: Start spironolactone. Orders: Orders NE nerve conduction velocity 08/12/23 R20.2 - Paresthesia of skin XR shoulder LT min 2V 08/12/23 M25.512 - Pain in left shoulder Referrals Podiatry Referral L60.0 - Ingrowing nail Orthopedics Referral M25.512 - Pain in left shoulder Medications: [facility] administer weeks 1 through 4 of therapy 0.25 mg (0.5 mL) subcut QWEEK 30 days 2.5 mL 0RF spironolactone 25 mg PO DAILY 90 tabs 0RF 90 days Refilled ondansetron 8 mg PO Q12H PRN 20 tabs 0RF nausea and vomiting 10 days topiramate 50 mg PO BEDTIME 30 tabs 6RF 30 days Coding Level of Care Code Est Pt Level 4 (12275) Diagnoses Mild asthma J45.909 Chronic idiopathic constipation K59.04 Migraine without aura and without status migrainosus, not intractable G43.009 Migraine type: without aura Status migrainosus presence: without status migrainosus Intractability: not intractable PCOS (polycystic ovarian syndrome) E28.2 Additional Codes OLREN-7 Assessment Billing - LOREN-7 Assessment Tool: LOREN-7 Assessment 61648 ([id number]) Time Spent (min) 22
== END 2023-08-12 15:02 | disposition home or self-care (01) ==
PROVIDERS: PCP Internal Medicine; Visit Provider Internal Medicine
DX: J45.909 Unspecified asthma, uncomplicated (principal); K59.04 Chronic idiopathic constipation; G43.009 Migraine without aura, not intractable, without status migrainosus; E28.2 Polycystic ovarian syndrome
CPT/HCPCS: 99214

== ENCOUNTER 2023-08-18 15:13 | Emergency (ER) | payer OTHER, SELFPAY ==
--- NOTE | 2023-08-18 15:25 | ED_ITS ---
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 Patient states that both of her heels have been hurting her lately, right more so than left. 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 Patient denies any dizziness, lightheadedness, abdominal pain, nausea, vomiting, fever, chills, blurry vision, double vision, loss of vision, chest pain, difficulty breathing, shortness of breath, back pain, night sweats, pain with urination, increased urinary frequency, increased urinary urgency, blood in her urine or stool, syncope or a near syncopal episode, recent trauma or falls, bowel incontinence, bladder incontinence, bowel retention, bladder retention, or any other complaints at this time. Onset (ago): month(s) Location: left, right and lower extremity Severity: mild Severity scale (1-10): 3 Quality: aching and dull Pain Consistency: constant Relieving factors: none Exacerbating factors: none Associated symptoms: denies other symptoms Treatments prior to arrival: NSAID (with no relief) Related Data Previous Rx's ?Medication ?Instructions ?Recorded methylcellulose (laxative) 500 mg 500 mg PO BID #180 tabs 09/08/21 tablet (Citrucel) ibuprofen 800 mg tablet 800 mg PO Q8H PRN pain 30 days #90 09/21/22 tabs albuterol sulfate 2.5 mg/3 mL 2.5 mg (3 mL) inhalation Q4-6H PRN 09/23/22 (0.083 %) solution for nebulization shortness of breath or wheezing #90 mL meclizine 12.5 mg tablet 12.5 mg PO TID PRN dizziness #10 11/15/22 tabs docusate sodium 100 mg capsule 100 mg PO BEDTIME #30 caps 11/18/22 sumatriptan succinate 100 mg tablet 100 mg PO .COMPLEX 30 days #10 tabs 12/01/22 blood pressure monitor (Blood #1 ea 12/10/22 Pressure Kit) fluticasone propionate 50 2 spray intranasal DAILY #16 grams 04/11/23 mcg/actuation nasal spray,suspension Ventolin HFA 90 mcg/actuation 2 puff inhalation Q6H PRN 06/09/23 aerosol inhaler (albuterol sulfate) shortness of breath or wheezing 30 days #8 grams amitriptyline 25 mg tablet 25 mg PO BEDTIME #30 tabs 08/09/23 ondansetron 8 mg disintegrating 8 mg PO Q12H PRN nausea and 08/12/23 tablet vomiting 10 days #20 tabs spironolactone 25 mg tablet 25 mg PO DAILY 90 days #90 tabs 08/12/23 topiramate 50 mg tablet 50 mg PO BEDTIME 30 days #30 tabs 08/12/23 semaglutide (weight loss) 0.25 0.25 mg (0.5 mL) subcut QWEEK 30 08/13/23 mg/0.5 mL subcutaneous pen days #2.5 mL injector (Wegovy) prednisone 20 mg tablet 20 mg PO DAILY 7 days #7 tabs 08/18/23 Allergies Allergy/AdvReac Type Severity Reaction Status Date / Time aspirin [ASPIRIN] Allergy Severe Anaphylaxis Verified 08/18/23 15:28 penicillin V Allergy Severe anaphylaxis Verified 08/18/23 15:28 Sulfa (Sulfonamide Allergy Intermediate RASH Verified 08/18/23 15:28 Antibiotics) [SULFA (SULFONAMIDE ANTIBIOTICS)] sulfacetamide Allergy Intermediate Throat Verified 08/18/23 15:28 [From Sulfacet-R] closes sulfur [From Sulfacet-R] Allergy Intermediate Throat Verified 08/18/23 15:28 closes peach [PEACH] Allergy Unknown UNKNOWN Verified 08/18/23 15:28 Review of Systems Constitutional: Constitutional: Reports no additional constitutional complaints, Denies chills, Denies fever(s) and Denies night sweats Eyes: Eyes: Reports no additional eye complaints, Denies blurry vision, Denies change in vision, Denies diplopia, Denies eye discharge, Denies loss of vision and Denies eye pain ENT: Denies dizziness Cardiovascular: Cardiovascular: Reports no additional cardiovascular complaints, Denies chest pain, Denies lightheadedness, Denies Loss of Consciousness and Denies dyspnea Respiratory: Respiratory: Reports no additional respiratory complaints and Denies dyspnea Gastrointestinal: Gastrointestinal: Reports no additional gastrointestinal complaints, Denies abdominal pain, Denies melena, Denies hematochezia, Denies change in bowel habits and Denies change in stool character Genitourinary: Genitourinary: Denies hematuria, Denies urinary frequency, Denies dysuria, Denies urinary incontinence, Denies urinary hesitancy and Denies urinary urgency Musculoskeletal: Musculoskeletal: Reports no additional musculoskeletal complaints, Denies numbness and Denies tingling Comments: bilateral heel pain Neurologic: Denies dizziness, Denies loss of vision, Denies numbness and Denies tingling Psychiatric: Psychiatric: Reports no additional psychiatric complaints Endocrine: Endocrine: Reports no additional endocrine complaints Hematologic/Lymphatic: Hematologic/Lymphatic: Reports no additional hematologic/lymphatic complaints Allergic/Immunologic: Allergic/Immunologic: Reports no additional allergic/immunologic complaints PMFSH Past Medical History Attestation statement: The following information was validated with the patient. Source: old records reviewed and nursing notes reviewed Medical History Rectal bleeding H. pylori infection Class 2 obesity with body mass index (BMI) of 37.0 to 37.9 in adult Acute diarrhea Low back pain radiating to lower extremity Surgical History Hx of endoscopy History of cervical polypectomy Family History Family History Mother No problems noted. Father No problems noted. Social History Social History Housing: Apartment Alcohol intake: never Patient Tobacco Use Status: Never used Tobacco e-Cigarette/Vaping Use: Never Used Second Hand Smoke Exposure: No Advance Directives: No Advance Directives Information Provided: No service: No Current occupational status: employed Current occupational exposures/hazards: No Cognitive needs: No Hearing needs: No Vision needs: Yes Physical Exam ED Vital Signs: Vital Signs - 24 hr 08/18/23 15:26 08/18/23 16:37 Temperature 97.8 F 97.8 F Pulse Rate 78 78 Respiratory Rate 16 16 Blood Pressure 154/91 H 154/91 H Pulse Oximetry 98 98 Oxygen Delivery Method Room Air Room Air BMI result Body Mass Index 39.3 Const General: cooperative, no acute distress, alert and awake Nutritional Appearance: well nourished Orientation/consciousness: patient oriented x3 Limitations: no limitations HENMT Head: Yes normal to inspection and Yes atraumatic Ears: hearing grossly normal bilaterally and external ears normal General nose exam: Normal external nose present, no nasal discharge noted and no epistaxis Face and sinus: Yes normal facial exam, No abrasion and No laceration Mouth: Normal oral and palatal mucosa present, no drooling and no muffled voice Eyes General: appearance normal, both eyes and all related structures Periorbital: periorbital findings normal Eyelids: Yes eyelids normal Conjunctivae: conjunctivae normal Pupils: Equal, round and reactive pupils present EOM: EOMs intact bilaterally Neck Neck: Yes normal visual inspection, Yes full ROM and Yes no lymphadenopathy Chest Chest palpation & inspection: normal inspection of the chest Resp Effort & Inspection: normal respiratory effort and able to speak in complete sentences GI Inspection: Yes normal to inspection Neuro General: patient oriented x3 and moves all extremities Cranial nerves: Yes Equal, round and reactive pupils present Cognition (Neuro): normal cognition Motor exam (neuro): 5/5 motor strength present throughout Sensory Exam: Normal double simultaneous stimulation for sensation Coordination: [id number] test normal Extrem Other: pain with palpation of the bilateral achilles tendons General: Yes normal to inspection, Yes full ROM and Yes capillary refill normal Psych Appearance: grossly normal Mental Status: mental status grossly normal Affect: normal affect Attitude: cooperative Thought process: Normal thought process present Thought content: Normal thought content present Insight: Good insight present (Psych) Course Course Course Narrative: This is an RME done by [facility] Castillo: Additional HPI, ROS, PE not included below will be deferred to primary provider. This is a 38 year old female with a pmh of obesity, H. pylori infection presents with complaints of burning and pain in both legs for a couple months. 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 Ibuprofen has not helped the pain. Appearance: Alert.? Oriented X3.? No acute cardiopulmonary distress distress.? Head: Normocephalic, atraumatic, no step-offs or deformities Neck: Normal inspection.? Neck supple.? CVS: Pulses normal.? Respiratory: No respiratory distress.? Abdomen: Soft and nontender.? Skin: ? Normal skin color. Extremities: 5/5 strength to bilateral upper and lower extremities Back: No midline tenderness, no C-spine tenderness, full range of motion, No CVA tenderness bilaterally Neuro: Oriented X 3.? No motor deficit.? No sensory deficit. Medical Decision Making Medical Decision Making MDM Narrative: Patient is a 38 year old assigned female at with a history of asthma, PCOS, and GERD presenting to the emergency department today with bilateral heel pain. Patient's physical exam showed pain with palpation of both achilles tendons but was otherwise unremarkable. I explained my physical exam findings to the patient. I answered all questions asked by the patient. I stressed the importance of the patient taking her medication as prescribed. I stressed the importance of the patient following up with her primary care provider and an orthopedic provider. I stressed the importance of the patient returning to the emergency department immediately if her symptoms were to worsen or if she were to develop any dizziness, shortness of breath, difficulty breathing, chest pain, blurry vision, loss of vision, nausea, vomiting, abdominal pain, fever, chills, back pain, or any other complaints. Patient verbalized agreement and understanding with this treatment plan and discharge. Differential Diagnosis Differential Diagnoses: The differential diagnosis associated with the presentation includes Bilateral heel pain Achilles tendonitis Admission/Observation Consideration of admission/observation: Escalation of care including admission/observation considered Patient would have been admitted to the hospital had her clinical presentation warranted hospital admission. Tests considered The following testing was considered but not selected: I considered getting bilateral ankle x-rays and bilateral lower leg ultrasounds however, given the patient's clinical presentation, this was not warranted. I discussed this with the patient who verbalized agreement and understanding. Discharge Plan Discharge Clinical Impression: Tendonitis, Achilles tendonitis Patient Disposition: Home, Self-Care Instructions: Achilles Tendinitis (ED), Tendinitis (ED) Additional Instructions: Follow up with your primary care provider and an orthopedic provider. Return to the emergency department immediately if your symptoms worsen or if you develop any dizziness, shortness of breath, difficulty breathing, chest pain, blurry vision, loss of vision, nausea, vomiting, abdominal pain, fever, chills, back pain, or any other complaints. Prescriptions: New prednisone 20 mg tablet 20 mg PO DAILY 7 Days Qty: 7 0RF No Action ibuprofen 800 mg tablet 800 mg PO Q8H PRN (Reason: pain) 30 Days Qty: 90 0RF albuterol sulfate 2.5 mg /3 mL (0.083 %) solution for nebulization 2.5 mg inhalation Q4-6H PRN (Reason: shortness of breath or wheezing) Qty: 90 0RF (DME) blood pressure monitor [Blood Pressure Kit] Kit See Rx Instructions .Route Qty: 1 0RF Rx Instructions: As directed fluticasone propionate 50 mcg/actuation spray,suspension 2 spray intranasal DAILY Qty: 16 5RF albuterol sulfate [Ventolin HFA] 90 mcg/actuation HFA aerosol inhaler 2 puff inhalation Q6H PRN (Reason: shortness of breath or wheezing) 30 Days Qty: 8 1RF Wegovy 0.25 mg/0.5 mL pen injector 0.25 mg subcut QWEEK 30 Days Qty: 2.5 0RF Rx Instructions: administer weeks 1 through 4 of therapy meclizine 12.5 mg tablet 12.5 mg PO TID PRN (Reason: dizziness) Qty: 10 0RF sumatriptan succinate 100 mg tablet 100 mg PO .COMPLEX 30 Days Qty: 10 1RF Rx Instructions: 100 mg orally; amitriptyline 25 mg tablet 25 mg PO BEDTIME Qty: 30 0RF ondansetron 8 mg tablet,disintegrating 8 mg PO Q12H PRN (Reason: nausea and vomiting) 10 Days Qty: 20 0RF topiramate 50 mg tablet 50 mg PO BEDTIME 30 Days Qty: 30 6RF spironolactone 25 mg tablet 25 mg PO DAILY 90 Days Qty: 90 0RF docusate sodium 100 mg capsule 100 mg PO BEDTIME Qty: 30 3RF Citrucel 500 mg tablet 500 mg PO BID Qty: 180 2RF Referrals: [facility] Orthopedic Surgeons [Provider Group] (Call to establish and follow up with an orthopedic provider.) Lyndsay Ballard MD [Primary Care Provider] - Stand Alone Forms: Work/School Release Interventions: ED Discharge Assessment Last Done: 08/18/23 16:37 Discharge Date/Time: 08/18/23 16:38 Print Language: Kyrgyz
[2023-08-18 15:26] VITALS: BP 154/91; PULSE 78; RESP 16; TEMP 36.6; O2SAT 98; BMI 39.3
[2023-08-18 16:37] VITALS: BP 154/91; PULSE 78; RESP 16; TEMP 36.6; O2SAT 98
== END 2023-08-18 16:38 | disposition home or self-care (01) ==
PROVIDERS: Emergency Provider Emergency Medicine Emergency Medical Services; PCP Internal Medicine
DX: M76.62 Achilles tendinitis, left leg (principal); M76.61 Achilles tendinitis, right leg
CPT/HCPCS: 99282; 99283

== ENCOUNTER 2023-08-26 14:15 | Outpatient (REF) | payer OTHER, SELFPAY ==
--- NOTE | 2023-08-26 14:18 | EMG_ITS ---
Chief complaint: Sudden onset of burning on legs 1 month ago, after working for 8 hours Reason for referral: Evaluate for neuropathy Referred by: Dr. Malave Procedure done: Bilateral lower extremity NCS/EMG Precautions and/or limitations: None The limb temperature was monitored continuously and remained between 32-36 degrees C during the performance of the NCS. Nerve Conduction Studies Anti Sensory Summary Table ?Stim Site NR Onset (ms) Norm Onset (ms) Peak (ms) Norm Peak (ms) O-P Amp (?V) Norm O-P Amp Site1 Site2 Delta-0 (ms) Dist (cm) Wesly (m/s) Norm Wesly (m/s) Left Sural Anti Sensory (Lat Mall) Calf ? 2.0 3.1 <4.0 12.0 >5.0 Calf Lat Mall 2.0 14.0 70 Right Sural Anti Sensory (Lat Mall) Calf ? 2.6 3.9 <4.0 26.7 >5.0 Calf Lat Mall 2.6 14.0 54 Motor Summary Table ?Stim Site NR Onset (ms) Norm Onset (ms) O-P Amp (mV) Norm O-P Amp iAmp (mV) Amp (1st) (%) Site1 Site2 Delta-0 (ms) Dist (cm) Wesly (m/s) Norm Wesly (m/s) Right Peroneal Motor (Ext Dig Brev) Ankle ? 3.9 <4.0 8.6 >2.5 10.0 100.0 Ankle Ext Dig Brev 3.9 0.0 B Fib ? 10.5 10.0 11.8 116.3 B Fib Ankle 6.6 33.0 50 >40 Poplt ? 11.4 9.3 11.0 108.1 Poplt B Fib 0.9 6.0 67 >40 Left Tibial Motor (Abd Ríos Brev) Ankle ? 3.8 <5 17.0 >2.5 23.0 100.0 Ankle Abd Ríos Brev 3.8 0.0 Knee ? 12.6 11.2 14.8 65.9 Knee Ankle 8.8 40.0 45 >40 Right Tibial Motor (Abd Ríos Brev) Ankle ? 3.8 <5 9.2 >2.5 12.1 100.0 Ankle Abd Ríos Brev 3.8 0.0 Knee ? 11.4 8.3 11.2 90.2 Knee Ankle 7.6 39.0 51 >40 EMG ?Side Muscle Nerve Root Ins Act Fibs Psw Amp Dur Poly Recrt Int Pat Comment Right AbdHallucis MedPlantar S1-2 Nml Nml Nml Nml Nml 0 Nml Complete Right AntTibialis Dp Br Peron L4-5 Nml Nml Nml Nml Nml 0 Nml Complete Right PostTibialis Tibial L5, S1 Nml Nml Nml Nml Nml 0 Nml Complete Right MedGastroc Tibial S1-2 Nml Nml Nml Nml Nml 0 Nml Complete Right VastusMed Femoral L2-4 Nml Nml Nml Nml Nml 0 Nml Complete Left AbdHallucis MedPlantar S1-2 Nml Nml Nml Nml Nml 0 Nml Complete Left AntTibialis Dp Br Peron L4-5 Nml Nml Nml Nml Nml 0 Nml Complete Left PostTibialis Tibial L5, S1 Nml Nml Nml Nml Nml 0 Nml Complete Left MedGastroc Tibial S1-2 Nml Nml Nml Nml Nml 0 Nml Complete Left VastusMed Femoral L2-4 Nml Nml Nml Nml Nml 0 Nml Complete FINDINGS: All motor and sensory nerves tested showed normal latencies, amplitudes and conduction velocities. Concentric needle EMG was performed in selected muscles of the bilateral lower extremity. Study did not reveal signs of electric abnormalities as shown in the table below. IMPRESSION: 1. This is a normal study. 2. There is no electrodiagnostic evidence for peroneal neuropathy, tibial neuropathy, lumbosacral plexopathy, lumbar radiculopathy, or peripheral neuropathy. Thank you for your kind referral. Alyce Ernandez MD, MOON Board Certified, [employer] and [employer] (ABPMR) Board Certified, [employer] Electrodiagnostic Medicine (ABEM) CODIN [id number] x 2 MTDD
== END 2023-08-26 14:16 | disposition home or self-care (01) ==
LOC: HO.NEURO 14:15
PROVIDERS: PCP Internal Medicine; Visit Provider Internal Medicine
DX: R20.2 Paresthesia of skin (principal)
CPT/HCPCS: 95886; 95909

== ENCOUNTER → 2023-08-26 14:18 | Outpatient (BNV) | payer OTHER, SELFPAY | PROVIDERS: PCP Internal Medicine; Visit Provider Physical Medicine & Rehabilitation | DX: R20.2 Paresthesia of skin (principal) | CPT/HCPCS: 95886; 95909 ==

== ENCOUNTER 2023-09-16 14:21 | Outpatient (REF) | payer OTHER, SELFPAY ==
[2023-09-17 08:02] LABS: HBS Num1 0.45 mIU/mL (0-7.99); HBc Num1 0.12 S/CO (0.00-0.79); HBsAGNum1 0.31 S/CO (0.00-0.99); Hepatitis B Core Antibody Nonreactive (Nonreactive); Hepatitis B Surface Antigen Negative (Negative); ~Hepatitis B Surface Antibody NONREACTIVE (Nonreactive)
[2023-09-17 11:43] LABS: Rubella IgG Antibody <0.90 Index
[2023-09-19 08:44] LABS: TS Negative Control Passed; TS Panel A 0; TS Panel B 0; TS Positive Control Passed; TSpotTB Negative (Negative)
== END 2023-09-16 14:22 | disposition home or self-care (01) ==
LOC: HO.LAB 14:21
PROVIDERS: PCP Internal Medicine; Visit Provider Internal Medicine
DX: Z01.84 Encounter for antibody response examination (principal); Z11.1 Encounter for screening for respiratory tuberculosis
CPT/HCPCS: 36415; 86481; 86704; 86706; 86735; 86762; 86765; 86787; 87340

== ENCOUNTER 2023-09-20 13:15 | Outpatient (AMB) | payer OTHER, SELFPAY ==
--- NOTE | 2023-09-20 13:17 | AM.OFFVISNUR ---
Intake Visit Reasons: MMR Vaccine Allergies aspirin [ASPIRIN] Allergy (Severe, Verified 08/18/23 15:28) Anaphylaxis penicillin V Allergy (Severe, Verified 08/18/23 15:28) anaphylaxis Sulfa (Sulfonamide Antibiotics) [SULFA (SULFONAMIDE ANTIBIOTICS)] Allergy (Intermediate, Verified 08/18/23 15:28) RASH sulfacetamide [From Sulfacet-R] Allergy (Intermediate, Verified 08/18/23 15:28) Throat closes sulfur [From Sulfacet-R] Allergy (Intermediate, Verified 08/18/23 15:28) Throat closes peach [PEACH] Allergy (Unknown, Verified 08/18/23 15:28) UNKNOWN Assessment & Plan Assessment & Plan Orders: Orders MMR Immunization Today Z23 - Encounter for immunization Medications: New M-M-R II (PF) (measles,mumps,rubella vacc(PF)) 0.5 mL subcut ONCE 1 ea 0RF NS Z23 - Encounter for immunization
== END 2023-09-20 13:30 | disposition home or self-care (01) ==
PROVIDERS: PCP Internal Medicine; Visit Provider Internal Medicine
DX: Z23 Encounter for immunization (principal)
CPT/HCPCS: 90471; 90707

== ENCOUNTER 2023-10-28 14:56 | Outpatient (REF) | payer OTHER, SELFPAY ==
[2023-10-28 15:14] LABS: MANUAL DIFF FLAG NO
[2023-10-28 15:33] LABS: Basophils Percent Auto 0.2 % (0-2); Eosinophils Absolute Auto 0.2 X10*3/uL (0.0-0.4); Hematocrit 36.5 % (37.0-47.0); Hemoglobin 12.7 g/dl (12.0-16.0); Imm Gran Abs Auto 0.02 X10*3/uL (0.00-0.03); Imm Gran Pct Auto 0.2 % (0.0-0.4); Lymphocytes Absolute Auto 2.1 X10*3/uL (1.2-4.9); Lymphocytes Percent Auto 26.2 % (20-40); Mean Corpuscular HGB Conc 34.8 g/dl (31.0-35.0); Mean Corpuscular Hemoglobin 29.4 pg (27.0-33.0); Mean Corpuscular Volume 84.5 fL (80.0-98.0); Mean Platelet Volume 11.5 fL (9.4-12.3); Monocytes Absolute Auto 0.5 X10*3/uL (0.1-1.2); Monocytes Percent Auto 6.5 % (2-11); Neutrophils Absolute Auto 5.2 x10*3/uL (2.0-8.3); Neutrophils Percent Auto 64.9 % (45-73); Platelet Count 202 X10*3/uL (160-400); Red Blood Count 4.32 X10*6/uL (4.20-5.50); Red Cell Distribution Width 12.8 % (11.0-16.0); White Blood Count 8.1 X10*3/uL (4.8-10.8)
== END 2023-10-28 14:57 | disposition home or self-care (01) ==
LOC: HO.LAB 14:56
PROVIDERS: PCP Internal Medicine; Visit Provider Internal Medicine
DX: D64.9 Anemia, unspecified (principal)
CPT/HCPCS: 36415; 85025

== ENCOUNTER 2023-12-14 09:15 | Outpatient (AMB) | payer OTHER, SELFPAY ==
--- NOTE | 2023-12-14 09:16 | MHC.OFFVIS ---
Vital Signs 12/14/23 09:17 Height 5 ft 9 in Weight 237 lb 3.478 oz BMI 35.0 BP 132/72 Blood Pressure Location Rt brachial Position Sitting Pulse 72 Pulse Source Pulse Oximeter Pulse Oximetry (%) 97 Oxygen Delivery Method Room Air Intake Visit Reasons: Bloating, Abd.pain Intake Note: Nora presents in office today for a scheduled FUV to discuss new sx. CC; Pt reporting new onset of bloating and abdominal pain. Pt reports pain in the epigastric region as well as nausea and vomiting. Pt also reporting intermittent constipation and diarrhea. Pt states that they have not been able to consume any solid foods for the last 10 days. Pt has been consuming soup when able and taking small sips of water. However, that intake will still cause them to be nauseous. Pt has been taking ondansetron 8mg per Dr. Millard without any improvements to this point. Box Liner Required: No Allergies aspirin [ASPIRIN] Allergy (Severe, Verified 12/14/23 09:19) Anaphylaxis penicillin V Allergy (Severe, Verified 12/14/23 09:19) anaphylaxis Sulfa (Sulfonamide Antibiotics) [SULFA (SULFONAMIDE ANTIBIOTICS)] Allergy (Intermediate, Verified 12/14/23 09:19) RASH sulfacetamide [From Sulfacet-R] Allergy (Intermediate, Verified 12/14/23 09:19) Throat closes sulfur [From Sulfacet-R] Allergy (Intermediate, Verified 12/14/23 09:19) Throat closes peach [PEACH] Allergy (Unknown, Verified 12/14/23 09:19) UNKNOWN HPI HPI Bloating, Abd.pain: Details: LAST VISIT: Diarrhea Patient reports that she has more loose stools now that not take the fiber supplement. Patient reports that she ran out her medications. New script sent today IBS (irritable bowel syndrome) Postprandial moves stools. Patient was encouraged to continue FODMAP diet. Will give her Citrucel. Patient was encouraged to eat small meals avoid fatty or greasy food. Awaiting for HIDA scan GERD (gastroesophageal reflux disease) Patient denies any acid reflux, dyspepsia, dysphagia or odynophagia. Patient continues to take omeprazole daily and reports to be helpful. Patient can continue on omeprazole. We will check H pylori next visit. I will see patient in 6 months, sooner on as needed basis. She is agreeable to this plan and verbalizes understanding of instructions. She was the opportunity to ask questions all questions answered. ? Thank you for allowing me to participate in her care Plan Medications Refilled methylcellulose (laxative) (Citrucel) 500 mg PO BID 180 tabs 2RF K59.00 Discontinued ondansetron Discontinued Reason: Patient Completed Course 4 mg PO Q6-8H PRN 14 tabs 0RF nausea and vomiting TODAY'S VISIT: Patient is here today for tested visit. Patient was last seen couple years ago. Was placed on Wegovy 3 months ago for weight loss, so far last 30 lb. Patient reports that she has been having epigastric pain postprandially constipation, however she does report occasional loose stools. Patient reports abdominal bloating. Occasional dyspepsia without dysphagia or odynophagia. Patient does occasional nausea, no vomiting. Patient denies melena, hematochezia. Currently patient is not taking any PPI or H2 blockers to control her symptoms. Patient noticed that her symptoms are worse when she eats food like pizza or hamburger. [facility] Medical History Rectal bleeding H. pylori infection Class 2 obesity with body mass index (BMI) of 37.0 to 37.9 in adult Acute diarrhea Low back pain radiating to lower extremity Surgical History Hx of endoscopy History of cervical polypectomy Family History Mother No problems noted. Father No problems noted. Social History Housing: Apartment Alcohol intake: never Patient Tobacco Use Status: Never used Tobacco e-Cigarette/Vaping Use: Never Used Second Hand Smoke Exposure: No service: No Current occupational status: employed Current occupational exposures/hazards: No Cognitive needs: No Hearing needs: No Vision needs: Yes Review of Systems Const Denies weight gain and Denies weight loss ENT Reports no additional complaints, Denies dysphagia and Denies odynophagia Card Reports no additional complaints Resp Reports no additional complaints GI Reports abdominal pain (Epigastric), Denies belching, Denies melena, Reports bloating, Denies change in bowel habits, Reports constipation, Denies dysphagia, Denies excessive flatus, Reports dyspepsia, Reports heartburn, Denies diarrhea, Denies loose stools, Denies nausea, Denies odynophagia and Denies vomiting Reports no additional complaints Musc Reports no additional complaints Neuro Reports no additional complaints Psych Reports no additional complaints Endo Reports no additional complaints Physical Exam Vital Signs: Last Vital Signs Pulse 72 12/14/23 09:17 BP 132/72 12/14/23 09:17 Pulse Ox 97 12/14/23 09:17 Oxygen Delivery Method Room Air 12/14/23 09:17 BMI result Body Mass Index 35.0 Const General: healthy appearing and no acute distress Nutritional Appearance: obese Orientation/consciousness: patient oriented x3 Resp Effort & Inspection: normal respiratory effort, able to speak in complete sentences, no tracheal deviation and symmetric chest movement Auscultation: clear to auscultation bilaterally Cardio Rate: regular rate GI Inspection: Yes normal to inspection, No distended and Yes obesity Palpation (GI): Soft to palpation, not firm, nontender and No hepatosplenomegaly present Auscultation: normal bowel sounds General: Yes no CVA tenderness Back/Spine/Pelvis Back: no CVA tenderness Skin General skin exam: elasticity normal, turgor normal and dry skin Neuro General: patient oriented x3 Psych Appearance: grossly normal Mental Status: mental status grossly normal Assessment & Plan Assessment & Plan (1) GERD (gastroesophageal reflux disease): Code(s): K21.9 - Gastro-esophageal reflux disease without esophagitis Category: Medical Qualifiers: Esophagitis presence: esophagitis presence not specified Qualified Code(s): K21.9 - Gastro-esophageal reflux disease without esophagitis (2) Chronic idiopathic constipation: Code(s): K59.04 - Chronic idiopathic constipation Category: Medical (3) Bloating: Code(s): R14.0 - Abdominal distension (gaseous) Category: Medical (4) Diarrhea: Code(s): R19.7 - Diarrhea, unspecified Category: Medical Qualifiers: Diarrhea type: unspecified type Qualified Code(s): R19.7 - Diarrhea, unspecified (5) IBS (irritable bowel syndrome): Code(s): K58.9 - Irritable bowel syndrome without diarrhea Qualifiers: Irritable bowel syndrome type: with constipation Qualified Code(s): K58.1 - Irritable bowel syndrome with constipation Plan Patient will start taking omeprazole daily. Avoid dietary triggers and late night snacking. Staying upright for minimum 3 hours after meals discussed with patient. Patient will take Senokot in the evening. Increase fluid intake and activity to promote better bowel motility. Follow-up in the office in 3 months, sooner on as needed basis. Patient is agreeable to this plan and verbalizes understanding of instructions. She was given the opportunity to ask questions and all questions answered. Thank you for allowing me participate in her care Medications: New omeprazole 20 mg PO DAILY 30 caps 3RF K21.9 - Gastro-esophageal reflux disease without esophagitis sennosides (Natural Senna Laxative) 17.2 mg (2 x 8.6 mg) PO BEDTIME 60 tabs 3RF constipation K59.00 - Constipation, unspecified Coding Level of Care Code Est Pt Level 3 (12277) Diagnoses Gastroesophageal reflux disease, unspecified whether esophagitis present K21.9 Esophagitis presence: esophagitis presence not specified Chronic idiopathic constipation K59.04 Bloating R14.0 Diarrhea, unspecified type R19.7 Diarrhea type: unspecified type Irritable bowel syndrome with constipation K58.1 Irritable bowel syndrome type: with constipation Time Spent (min) 30 Comment 20 minutes spent with patient and additional 10 minutes spent reviewing her records
[2023-12-14 09:17] VITALS: BP 132/72; PULSE 72; O2SAT 97; BMI 35.0
== END 2023-12-14 09:54 | disposition home or self-care (01) ==
PROVIDERS: PCP Internal Medicine; Visit Provider Nurse Practitioner Family
DX: K21.9 Gastro-esophageal reflux disease without esophagitis (principal); K59.04 Chronic idiopathic constipation; R14.0 Abdominal distension (gaseous); R19.7 Diarrhea, unspecified; K58.1 Irritable bowel syndrome with constipation
CPT/HCPCS: 99213

== ENCOUNTER → 2023-12-14 09:15 | Outpatient (BNVA) | payer OTHER, SELFPAY | PROVIDERS: PCP Internal Medicine; Visit Provider Nurse Practitioner Family | DX: K21.9 Gastro-esophageal reflux disease without esophagitis (principal); K59.04 Chronic idiopathic constipation; K58.1 Irritable bowel syndrome with constipation; R14.0 Abdominal distension (gaseous); R19.7 Diarrhea, unspecified | CPT/HCPCS: 99212 ==

== ENCOUNTER 2023-12-19 07:24 | Emergency (ER) | payer OTHER, SELFPAY ==
--- NOTE | ~2023-12-19 | CT_ITS ---
EXAMINATION: CT ABDOMEN AND PELVIS WITHOUT CONTRAST CLINICAL INFORMATION: Right upper quadrant/epigastric pain. COMPARISON: CT abdomen/pelvis 02/06/2021. TECHNIQUE: Multidetector volumetric imaging was performed from the superior aspect of the liver through the pubic symphysis. Sagittal and coronal reformatted images were obtained on the technologist's workstation. This CT examination was performed using dose optimization techniques as appropriate, variously including the following: *Automated exposure control *Adjustment of mA and/or kV according to patient size (this includes techniques or standardized protocols for targeted exams where dose is matched to indication/reason for exam; i.e. extremities or head) *Use of iterative reconstruction technique DLP: 717 9 mGy-cm FINDINGS: The lack of intravenous contrast limits evaluation of the solid visceral organs including the liver, spleen, pancreas, and kidneys. LUNG BASES: Calcified granuloma in the left lower lobe. No focal consolidation or pleural effusion. Partially seen asymmetric soft tissue thickening in the right right breast (3:1). LIVER, GALLBLADDER, AND BILIARY TREE: The liver is enlarged measuring 24 cm craniocaudally with decreased parenchymal attenuation consistent with hepatic steatosis, otherwise normal morphology without discrete focal mass. A calcified granuloma is noted in the right hepatic lobe. No biliary ductal dilatation. The gallbladder is unremarkable with no evidence of radiopaque gallstones, gallbladder wall thickening, or obvious pericholecystic inflammatory changes. PANCREAS: Unremarkable. SPLEEN: The spleen is enlarged measuring 14 cm on AP diameter. ADRENAL GLANDS: Unremarkable. KIDNEYS AND URETERS: The kidneys are normal in size, shape, and attenuation. No hydronephrosis, hydroureter, or calculi seen. No perinephric stranding. BLADDER: Unremarkable. GASTROINTESTINAL TRACT: The stomach, small bowel are nondilated. Normal appendix. Mild colonic diverticulosis without significant pericolonic inflammatory changes. No bowel obstruction. ABDOMINAL WALL: No significant hernia is appreciated. LYMPH NODES: No lymphadenopathy. VASCULAR: Normal caliber abdominal aorta. PELVIC VISCERA: Unremarkable. OSSEOUS STRUCTURES: Unremarkable. CT/CT abdomen pelvis wo IV con IMPRESSION: 1. Hepatosplenomegaly and hepatic steatosis. 2. Partially seen asymmetric soft tissue thickening in the right breast, most likely related with normal breast tissue, though incompletely characterize. Recommend correlation with physical examination and if indicated further evaluation with outpatient ultrasound. 3. Mild colonic diverticulosis without evidence of acute diverticulitis. Electronically signed by: Maggy Perea MD 12/19/2023 10:09 AM EDT
[2023-12-19 07:28] VITALS: BP 152/89; PULSE 75; RESP 18; TEMP 36.5; O2SAT 98; BMI 34.8
[2023-12-19 07:42] LABS: MANUAL DIFF FLAG NO
[2023-12-19 07:44] LABS: Basophils Percent Auto 0.2 % (0-2); Eosinophils Absolute Auto 0.1 X10*3/uL (0.0-0.4); Eosinophils Percent Auto 1.5 % (0-4); Hematocrit 38.7 % (37.0-47.0); Hemoglobin 13.2 g/dl (12.0-16.0); Imm Gran Abs Auto 0.04 X10*3/uL (0.00-0.03); Imm Gran Pct Auto 0.5 % (0.0-0.4); Lymphocytes Absolute Auto 2.4 X10*3/uL (1.2-4.9); Mean Corpuscular HGB Conc 34.1 g/dl (31.0-35.0); Mean Corpuscular Hemoglobin 28.6 pg (27.0-33.0); Mean Corpuscular Volume 83.8 fL (80.0-98.0); Mean Platelet Volume 10.6 fL (9.4-12.3); Monocytes Absolute Auto 0.5 X10*3/uL (0.1-1.2); Monocytes Percent Auto 6.3 % (2-11); Neutrophils Absolute Auto 5.5 x10*3/uL (2.0-8.3); Neutrophils Percent Auto 63.5 % (45-73); Platelet Count 239 X10*3/uL (160-400); Red Blood Count 4.62 X10*6/uL (4.20-5.50); White Blood Count 8.6 X10*3/uL (4.8-10.8)
[2023-12-19 07:58] LABS: Alanine Aminotransferase 18 U/L (0-31); Albumin Level 4.3 g/dL (3.5-5.0); Alkaline Phosphatase 52 U/L (39-117); Anion Gap 11 (12-20); Aspartate Amino Transferase 14 U/L (5-31); Bilirubin Direct 0.1 mg/dL (0.0-0.5); Bilirubin Total 0.3 mg/dL (0.0-1.0); Blood Urea Nitrogen 13 mg/dL (9-16); Calcium 9.5 mg/dL (8.4-10.2); Carbon Dioxide 25 mmol/L (22-29); Chloride 107 mmol/L (96-108); Creatinine Clr Calc Pharmacy 131.4; Estimated Glomerular Filt Rate > 60; Glucose Random 108 mg/dL (60-115); Lipase 49 U/L (8-78); Potassium 3.8 mmol/L (3.3-5.1); Sodium 139 mmol/L (135-145); Total Protein 7.7 g/dL (6.5-8.0)
--- NOTE | 2023-12-19 08:21 | ED_ITS ---
HPI - Abdominal Pain General Chief Complaint: Abdominal Pain Stated Complaint: [id number] pain Time Seen by Provider: 12/19/23 08:20 Source: patient and family () Mode of arrival: ambulatory Limitations: no limitations History of Present Illness ED Provider: SANDY LEWIS PA-C HPI narrative: 38-year-old female with pmhx significant for asthma, GERD, chronic idiopathic constipation, PCOS, lymphedema presents to the ED today for evaluation of epigastric abdominal pain x3 weeks. Pain radiates to her right upper quadrant. Pain is constant, burning in character. Admits to associated nausea, vomiting and chronic diarrhea. Last episode of vomiting was yesterday. She admits that she has been evaluated at [facility] twice for this over the last month with unremarkable workup. Was told my liver is enlarged . She has also followed up with her GI doctor at [facility] for her GERD and IBS. Last appointment was 5 days ago where she was prescribed omeprazole and senna without improvement in epigastric pain. Denies recent antibiotic use. Denies recent travel outside the [place] Denies fever, chills, sore throat, flank pain, dysuria, hematuria, vaginal discharge. Denies chance of . Related Data Previous Rx's ?Medication ?Instructions ?Recorded methylcellulose (laxative) 500 mg 500 mg PO BID #180 tabs 09/08/21 tablet (Citrucel) albuterol sulfate 2.5 mg/3 mL 2.5 mg (3 mL) inhalation Q4-6H PRN 09/23/22 (0.083 %) solution for nebulization shortness of breath or wheezing #90 mL meclizine 12.5 mg tablet 12.5 mg PO TID PRN dizziness #10 11/15/22 tabs docusate sodium 100 mg capsule 100 mg PO BEDTIME #30 caps 11/18/22 sumatriptan succinate 100 mg tablet 100 mg PO .COMPLEX 30 days #10 tabs 12/01/22 blood pressure monitor (Blood #1 ea 12/10/22 Pressure Kit) fluticasone propionate 50 2 spray intranasal DAILY #16 grams 04/11/23 mcg/actuation nasal spray,suspension Ventolin HFA 90 mcg/actuation 2 puff inhalation Q6H PRN 06/09/23 aerosol inhaler (albuterol sulfate) shortness of breath or wheezing 30 days #8 grams amitriptyline 25 mg tablet 25 mg PO BEDTIME #30 tabs 08/09/23 topiramate 50 mg tablet 50 mg PO BEDTIME 30 days #30 tabs 08/12/23 prednisone 20 mg tablet 20 mg PO DAILY 7 days #7 tabs 08/18/23 compression stockings 40 mmHg #1 ea 08/20/23 ibuprofen 800 mg tablet 800 mg PO Q8H PRN pain 30 days #90 10/13/23 tabs spironolactone 25 mg tablet 25 mg PO DAILY 90 days #90 tabs 11/03/23 omeprazole 20 mg capsule,delayed 20 mg PO DAILY #30 caps 12/14/23 release sennosides 8.6 mg tablet (Natural 17.2 mg (2 x 8.6 mg) PO BEDTIME 12/14/23 Senna Laxative) constipation #60 tabs ondansetron 8 mg disintegrating 8 mg PO Q12H PRN nausea and 12/15/23 tablet vomiting 10 days #20 tabs semaglutide (weight loss) 1.7 1.7 mg (0.75 mL) subcut QWEEK 4 12/15/23 mg/0.75 mL subcutaneous pen weeks #3 mL injector (Model Metrics) Allergies Allergy/AdvReac Type Severity Reaction Status Date / Time aspirin [ASPIRIN] Allergy Severe Anaphylaxis Verified 12/19/23 07:30 penicillin V Allergy Severe anaphylaxis Verified 12/19/23 07:30 Sulfa (Sulfonamide Allergy Intermediate RASH Verified 12/19/23 07:30 Antibiotics) [SULFA (SULFONAMIDE ANTIBIOTICS)] sulfacetamide Allergy Intermediate Throat Verified 12/19/23 07:30 [From Sulfacet-R] closes sulfur [From Sulfacet-R] Allergy Intermediate Throat Verified 12/19/23 07:30 closes peach [PEACH] Allergy Unknown UNKNOWN Verified 12/19/23 07:30 Review of Systems Review of Systems Constitutional: No fever, chills, fatigue, night sweats, weight changes ENT/Mouth: No ear pain, hearing loss, nasal congestion, sinus pain, rhinorrhea, sore throat Eyes: No eye pain, swelling, redness, vision changes, discharge Cardio: No chest pain, palpitations, MUÑOZ, orthopnea, peripheral edema Pulm: No SOB, cough, sputum, wheezing, dyspnea, hemoptysis GI: No hematemesis, constipation, hematochezia, melena, +abdominal pain, +nausea, +vomiting, +diarrhea : No irregular bleeding, dysuria, frequency, urgency, hesitancy, hematuria, flank pain, urinary flow changes, urinary incontinence or retention MSK: No back pain, neck pain, joint pain, myalgias Skin: No lesions, rashes Neuro: No weakness, numbness, paresthesias, LOC, dizziness, headache Psych: No anxiety/panic, depression, SI/HI, AH/VH All other systems reviewed and are negative. [facility] Past Medical History Attestation statement: The following information was validated with the patient. Source: old records reviewed and nursing notes reviewed Medical History Rectal bleeding H. pylori infection Class 2 obesity with body mass index (BMI) of 37.0 to 37.9 in adult Acute diarrhea Low back pain radiating to lower extremity Surgical History Hx of endoscopy History of cervical polypectomy Family History Family History Mother No problems noted. Father No problems noted. Social History Social History Housing: Apartment Alcohol intake: never Patient Tobacco Use Status: Never used Tobacco Smoked in Last 30 Days: No e-Cigarette/Vaping Use: Never Used Second Hand Smoke Exposure: No Use of substances other than those prescribed or required for medical reasons: No Advance Directives: No Advance Directives Information Provided: Yes Do you have a plan to hurt others: No Plan Patient : No service: No Current occupational status: employed Current occupational exposures/hazards: No Cognitive needs: No Hearing needs: No Vision needs: Yes Physical Exam ED Vital Signs: Vital Signs - 24 hr 12/19/23 07:28 12/19/23 08:33 12/19/23 11:24 Temperature 97.7 F 98.0 F 98.0 F Pulse Rate 75 65 70 Respiratory Rate 18 16 16 Blood Pressure 152/89 H 123/69 128/72 Pulse Oximetry 98 98 97 Oxygen Delivery Method Room Air Room Air Room Air 12/19/23 11:24 Temperature 98.0 F Pulse Rate 70 Respiratory Rate 16 Blood Pressure 128/72 Pulse Oximetry 97 Oxygen Delivery Method Room Air BMI result Body Mass Index 34.8 hypertensive, vitals otherwise wnl General: Well appearing, in no acute distress. Skin: Warm, dry, intact. No rashes or lesions. Head: Normocephalic, atraumatic. EENT: Hearing is intact b/l. Conjunctiva clear. PERRLA. Moist mucous membranes.? Neck: Supple without LAD. FROM. Trachea midline.? Cardiac: Chest wall symmetric. RRR. No MRG. No JVD. Lungs: Normal respiratory effort without accessory muscle use. CTA bilaterally Abdomen: Obese abdomen, soft, nondistended, mildly tender to palpation of the epigastric region without rebound tenderness or guarding. Negative Villafuerte's sign. Normoactive bowel sounds x4. No CVAT bilaterally. Back: No midline spinous or paraspinal tenderness Ext: Upper and lower extremities atraumatic, without tenderness, deformity, swelling or erythema. Full ROM throughout. Neuro: AOx3. Normal speech. Ambulating with steady gait. Psych: Appropriate mood and affect. Responds appropriately to questions. Course Course Course Narrative: 0853 -- CBC without leukocytosis or left shift. No anemia. H&H stable. Chemistry without acute electrolyte abnormality requiring intervention. No MARIANELA. Random glucose 108. Normal liver enzymes. Lipase WNL. Pancreatitis unlikely. Urine without infection or blood. Urine negative. > will trial GI cocktail (Maalox, lidocaine, Pepcid) and IV fluids with re- evaluation > CT abdomen/pelvis ordered for continued abdominal pain x3 weeks without previous imaging 1117 -- CT abdomen/pelvis showing enlarged liver measuring 24 cm with findings consistent with hepatic steatosis. Gallbladder unremarkable without evidence of radiopaque gallstones, wall thickening or pericholecystic inflammatory changes. Pancreas is unremarkable. Spleen slightly enlarged measuring 14 cm. Kidneys without evidence of hydronephrosis, hydroureter calculi. No evidence of bowel obstruction. Normal appendix. There is mild colonic diverticulosis without evidence of diverticulitis. Incidental finding of partially seen asymmetric soft tissue thickening in the right breast most likely related with normal breast tissue. With patient's consent I performed a breast examination. there is no palpable masses on exam of right breast. advised patient to follow up with her OBGYN for further evaluation. > patient tolerating PO intake in ED. i discussed all work up results with patient. she reports improvement in symptoms following GI cocktail. Question GERD versus peptic ulcer. Patient was recently started on omeprazole. Advised to continue this with GI follow up. Patient has remained stable throughout ED visit today. Discussed worrisome signs and symptoms and when to return to the ED. All questions answered at this time. Patient is agreeable with disposition and stable for discharge. Medical Decision Making Medical Decision Making [facility] Narrative: 38-year-old female with pmhx significant for asthma, GERD, chronic idiopathic constipation, PCOS, lymphedema presents to the ED today for evaluation of epigastric abdominal pain x3 weeks. Patient initially hypertensive to 152/89, now normotensive. Vitals otherwise WNL. She is nontoxic-appearing and in no acute distress. On exam, soft, obese abd, no distention, tender to palpation of the epigastric region without rebound tenderness or guarding. Negative Villafuerte's sign. Normoactive bowel sounds x4. No CVAT b/l. RRR. Lungs clear. Differential diagnosis includes biliary colic, renal colic, nephrolithiasis, gastroenteritis, PUD. Abdominal exam without peritoneal signs. No evidence of acute abdomen at this time. Well appearing. Moderate suspicion for acute hepatobiliary disease (including acute cholecystitis). Less likely to represent acute pancreatitis, perforated ulcer, acute infectious processes (pneumonia, hepatitis, UTI, pyelonephritis), atypical appendicitis, vascular catastrophe, bowel obstruction or viscus perforation. Presentation not consistent with other acute, emergent causes of abdominal pain at this time. Plan: labs, UA, GI cocktail, CT abd, serial reassessment Differential Diagnosis Differential Diagnoses: The differential diagnosis associated with the presentation includes as above Admission/Observation not indicated Lab Data [facility] Lab Attestation statement: I reviewed the patient's lab results. as above. 12/19/23 07:38 12/19/23 07:38 Labs: Lab Results 12/19/23 12/19/23 12/19/23 Range/Units 07:38 08:30 08:50 WBC 8.6 (4.8-10.8) X10*3/uL RBC 4.62 (4.20-5.50) X10*6/uL Hgb 13.2 (12.0-16.0) g/dl Hct 38.7 (37.0-47.0) % MCV 83.8 (80.0-98.0) fL MCH 28.6 (27.0-33.0) pg MCHC 34.1 (31.0-35.0) g/dl RDW 12.0 (11.0-16.0) % Plt Count 239 (160-400) X10*3/uL MPV 10.6 (9.4-12.3) fL Immature Gran % (Auto) 0.5 H (0.0-0.4) % Neut % (Auto) 63.5 (45-73) % Lymph % (Auto) 28.0 (20-40) % [place] % (Auto) 6.3 (2-11) % Eos % (Auto) 1.5 (0-4) % Baso % (Auto) 0.2 (0-2) % Lymph # (Auto) 2.4 (1.2-4.9) X10*3/uL [place] # (Auto) 0.5 (0.1-1.2) X10*3/uL Eos # (Auto) 0.1 (0.0-0.4) X10*3/uL Baso # (Auto) 0.0 (0.0-0.2) X10*3/uL Abs Immat Gran (auto) 0.04 H (0.00-0.03) X10*3/uL Absolute Neuts (auto) 5.5 (2.0-8.3) x10*3/uL Absolute Nucleated RBC 0.000 (0.0-0.012) X10*3/uL Nucleated RBC % (auto) 0.0 (0.0-0.2) /100WBC Sodium 139 (135-145) mmol/L Potassium 3.8 (3.3-5.1) mmol/L Chloride 107 (96-108) mmol/L Carbon Dioxide 25 (22-29) mmol/L Anion Gap 11 L (12-20) BUN 13 (9-16) mg/dL Creatinine 0.77 (0.5-1.4) mg/dL Estim Creat Clear Calc 131.4 Estimated GFR > 60 Random Glucose 108 (60-115) mg/dL Calcium 9.5 (8.4-10.2) mg/dL Total Bilirubin 0.3 (0.0-1.0) mg/dL Direct Bilirubin 0.1 (0.0-0.5) mg/dL AST 14 (5-31) U/L ALT 18 (0-31) U/L Alkaline Phosphatase 52 (39-117) U/L Troponin I High Sens < 2.7 (<3.5-17.0) ng/L Total Protein 7.7 (6.5-8.0) g/dL Albumin 4.3 (3.5-5.0) g/dL Triglycerides 253 H (<150) mg/dL Lipase 49 (8-78) U/L Urine Color Yellow Urine Appearance Clear Urine pH 6.0 (5.0-9.0) Ur Specific [place] 1.025 (1.005-1.025) Urine Protein Negative (Neg-Trace) mg/dL Urine Glucose (UA) Negative (Negative) mg/dL Urine Ketones Negative (Negative) mg/dL Urine Blood Negative (Negative) Urine Nitrite Negative (Negative) Ur Leukocyte Esterase Negative (Negative) Urine Test NEGATIVE (NEGATIVE) Independent Interpretation I performed an independent interpretation of an: CT Scan Interpretation: Ct abd/ pelvis showing colonic diverticulosis without thickening of the bowel wall, agree with radiologist's interpretation. Radiology Impression Discussion of test interpretation with radiology: I have reviewed the radiologist's reading. Radiologist Impression: EXAMINATION: CT ABDOMEN AND PELVIS WITHOUT CONTRAST CLINICAL INFORMATION: Right upper quadrant/epigastric pain. COMPARISON: CT abdomen/pelvis 02/06/2021. TECHNIQUE: Multidetector volumetric imaging was performed from the superior aspect of the liver through the pubic symphysis. Sagittal and coronal reformatted images were obtained on the technologist's workstation. This CT examination was performed using dose optimization techniques as appropriate, variously including the following: *Automated exposure control *Adjustment of mA and/or kV according to patient size (this includes techniques or standardized protocols for targeted exams where dose is matched to indication/reason for exam; i.e. extremities or head) *Use of iterative reconstruction technique DLP: 717 9 mGy-cm FINDINGS: The lack of intravenous contrast limits evaluation of the solid visceral organs including the liver, spleen, pancreas, and kidneys. LUNG BASES: Calcified granuloma in the left lower lobe. No focal consolidation or pleural effusion. Partially seen asymmetric soft tissue thickening in the right right breast (3:1). LIVER, GALLBLADDER, AND BILIARY TREE: The liver is enlarged measuring 24 cm craniocaudally with decreased parenchymal attenuation consistent with hepatic steatosis, otherwise normal morphology without discrete focal mass. A calcified granuloma is noted in the right hepatic lobe. No biliary ductal dilatation. The gallbladder is unremarkable with no evidence of radiopaque gallstones, gallbladder wall thickening, or obvious pericholecystic inflammatory changes. PANCREAS: Unremarkable. SPLEEN: The spleen is enlarged measuring 14 cm on AP diameter. ADRENAL GLANDS: Unremarkable. KIDNEYS AND URETERS: The kidneys are normal in size, shape, and attenuation. No hydronephrosis, hydroureter, or calculi seen. No perinephric stranding. BLADDER: Unremarkable. GASTROINTESTINAL TRACT: The stomach, small bowel are nondilated. Normal appendix. Mild colonic diverticulosis without significant pericolonic inflammatory changes. No bowel obstruction. ABDOMINAL WALL: No significant hernia is appreciated. LYMPH NODES: No lymphadenopathy. VASCULAR: Normal caliber abdominal aorta. PELVIC VISCERA: Unremarkable. OSSEOUS STRUCTURES: Unremarkable. CT/CT abdomen pelvis wo IV con IMPRESSION: 1. Hepatosplenomegaly and hepatic steatosis. 2. Partially seen asymmetric soft tissue thickening in the right breast, most likely related with normal breast tissue, though incompletely characterize. Recommend correlation with physical examination and if indicated further evaluation with outpatient ultrasound. 3. Mild colonic diverticulosis without evidence of acute diverticulitis. Electronically signed by: Maggy Perea MD 12/19/2023 10:09 AM EDT Independent Historian Clinical information obtained from an independent historian. History obtained from or confirmed by: Spouse External Record Review External record reviewed: Inpatient record, Office record, Outpatient record, Prior outpatient labs, Prior outpatient radiology, Primary care record and Outside ED record Chronic Conditions Patient?s care impacted by: Other (IBS, GERD, constipation) Social Determinants Patient?s care significantly limited by Social Determinants of Health including: Other Social Determinant of Health Medications Administered Discontinued Medications Generic Name Dose Route Start Last Admin Trade Name Freq PRN Reason Stop Dose Admin Al Hydroxide/Mg Hydroxide 30 ml 12/19/23 08:45 12/19/23 09:02 Magnesium Hydrox/Alum Hydrox 30 Ml Oral.Susp PO 12/19/23 08:46 30 ml ONCE ONE Administration Famotidine 20 mg 12/19/23 08:45 12/19/23 09:02 Famotidine/Pf 20 Mg/2 Ml Vial IVPUSH 12/19/23 08:46 20 mg ONCE ONE Administration Sodium Chloride 1,000 mls @ 999 mls/hr 12/19/23 08:30 12/19/23 10:12 Ns IV 12/19/23 09:30 Infused .Q1H1M ENRICO Infusion Lidocaine HCl 15 ml 12/19/23 08:45 12/19/23 09:02 Lidocaine Hcl Viscous 2 % 15 Ml Solution MUCOUS MEM 12/19/23 08:46 15 ml ONCE ONE Administration Critical Care Time Critical Care Time Critical Care Time: No Discharge Plan Discharge Clinical Impression: Epigastric abdominal pain, Hepatic steatosis, Diverticulosis of colon without diverticulitis Patient Disposition: Home, Self-Care Instructions: Diverticulosis (ED), Liver Disease Diet (DC), Abdominal Pain (ED) Additional Instructions: Your blood work today is reassuring. Your urine is negative for infection/ blood/ . The CT of your abdomen shows enlarged liver/ fatty liver disease along with mild diverticulosis of your colon without evidence of infection. See the attached paper work regarding dietary changes. You symptoms may be attributable to a gastric ulcer vs acid reflux. Please follow up with your GI doctor as you may require further evaluation with an upper endoscopy/ scope. Continue home omeprazole as prescribed. Return with new or worsening symptoms. In the case of an emergency call 911. Of note: the CT scan shows incidental finding of thickening of the breast tissue within your right breast. It is important that you follow up with your OBGYN for further evaluation. If you do not have an OBGYN, a referral has been provided to you. Call them to establish care, they will not call you. Prescriptions: No Action albuterol sulfate 2.5 mg /3 mL (0.083 %) solution for nebulization 2.5 mg inhalation Q4-6H PRN (Reason: shortness of breath or wheezing) Qty: 90 0RF (DME) blood pressure monitor [Blood Pressure Kit] Kit See Rx Instructions .Route Qty: 1 0RF Rx Instructions: As directed fluticasone propionate 50 mcg/actuation spray,suspension 2 spray intranasal DAILY Qty: 16 5RF albuterol sulfate [Ventolin HFA] 90 mcg/actuation HFA aerosol inhaler 2 puff inhalation Q6H PRN (Reason: shortness of breath or wheezing) 30 Days Qty: 8 1RF (DME) compression stockings 40 mmHg knee high See Rx Instructions .Route .MEDSUPPLY Qty: 1 0RF Rx Instructions: As directed ibuprofen 800 mg tablet 800 mg PO Q8H PRN (Reason: pain) 30 Days Qty: 90 0RF spironolactone 25 mg tablet 25 mg PO DAILY 90 Days Qty: 90 0RF Wegovy 1.7 mg/0.75 mL pen injector 1.7 mg subcut QWEEK 28 Days Qty: 3 0RF Rx Instructions: administer weeks 13 through 16 of therapy ondansetron 8 mg tablet,disintegrating 8 mg PO Q12H PRN (Reason: nausea and vomiting) 10 Days Qty: 20 0RF meclizine 12.5 mg tablet 12.5 mg PO TID PRN (Reason: dizziness) Qty: 10 0RF prednisone 20 mg tablet 20 mg PO DAILY 7 Days Qty: 7 0RF sumatriptan succinate 100 mg tablet 100 mg PO .COMPLEX 30 Days Qty: 10 1RF Rx Instructions: 100 mg orally; amitriptyline 25 mg tablet 25 mg PO BEDTIME Qty: 30 0RF topiramate 50 mg tablet 50 mg PO BEDTIME 30 Days Qty: 30 6RF docusate sodium 100 mg capsule 100 mg PO BEDTIME Qty: 30 3RF Citrucel 500 mg tablet 500 mg PO BID Qty: 180 2RF omeprazole 20 mg capsule,delayed release(DR/EC) 20 mg PO DAILY Qty: 30 3RF sennosides [Natural Senna Laxative] 8.6 mg tablet 17.2 mg PO BEDTIME Qty: 60 3RF Referrals: [facility] Gastroenterology Services [Provider Group] [facility] Women's Services [Provider Group] Lyndsay Ballard MD [Primary Care Provider] - Interventions: ED Discharge Assessment Last Done: 12/19/23 11:24 Discharge Date/Time: 12/19/23 11:25 Print Language: Frisian
[2023-12-19 08:33] VITALS: BP 123/69; PULSE 65; RESP 16; TEMP 36.7; O2SAT 98
[2023-12-19 08:45] LABS: Appearance Urine Clear; Color Urine Yellow; Glucose Urine UA Negative (Negative); Leukocyte Esterase Urine Negative (Negative); Nitrite Urine Negative (Negative); Specific Gravity - Urine 1.025 (1.005-1.025); Urine Blood Negative (Negative); Urine Ketones Negative (Negative); Urine Protein Negative (Neg-Trace)
[2023-12-19 08:47] LABS: UPreg QC Valid YES; Urine Pregnancy NEGATIVE (NEGATIVE)
[2023-12-19] MEDS: 0.9 % Sodium Chloride 1,000 ML 999 ML IV (09:01)
[2023-12-19] MEDS: Lidocaine HCl Viscous 2 % 15 ML SOLUTION MUCOUS MEM (09:02)
[2023-12-19] MEDS: Magnesium Hydrox/Alum Hydrox 30 ML ORAL.SUSP PO (09:02)
[2023-12-19] MEDS: Famotidine/PF 20 MG/2 ML VIAL IVPUSH (09:02)
--- NOTE | 2023-12-19 09:09 | PC.NURSE ---
20gIV placed in the left AC - labs obtained/sent to lab. IVF/medication administered per provider order. effectiveness pending. pt waiting to go to CT at this time.
[2023-12-19 09:16] LABS: Triglycerides 253 mg/dL (<150)
--- NOTE | 2023-12-19 09:18 | PC.NURSE ---
pt to CT at this time.
[2023-12-19 09:34] LABS: Troponin-I High Sensitivity < 2.7 ng/L (<3.5-17.0)
[2023-12-19 11:24] VITALS: BP 128/72; PULSE 70; RESP 16; TEMP 36.7; O2SAT 97
== END 2023-12-19 11:25 | disposition home or self-care (01) ==
PROVIDERS: Physician Assistant Medical; Emergency Provider Emergency Medicine Emergency Medical Services; PCP Internal Medicine
DX: K57.30 Diverticulosis of large intestine without perforation or abscess without bleeding (principal); R10.13 Epigastric pain; R10.11 Right upper quadrant pain; R11.2 Nausea with vomiting, unspecified; K76.0 Fatty (change of) liver, not elsewhere classified; Z79.899 Other long term (current) drug therapy
CPT/HCPCS: 36415; 74176; 80053; 81003; 81025; 82248; 83690; 84478; 84484; 85025; 96361; 96374; 96375; 99284; 99285

== ENCOUNTER 2023-12-20 14:21 | Outpatient (AMB) | payer OTHER, SELFPAY ==
[2023-12-20 14:43] VITALS: BP 134/92; PULSE 82; O2SAT 100; BMI 34.8
--- NOTE | 2023-12-20 14:43 | A.OFFVIS_ITS ---
Vital Signs 12/20/23 14:43 Height 5 ft 9 in Weight 235 lb 7.259 oz BMI 34.8 BP 134/92 H Blood Pressure Location Lt brachial Position Sitting Pulse 82 Pulse Source Pulse Oximeter Pulse Oximetry (%) 100 Oxygen Delivery Method Room Air Intake Visit Reasons: ED FUV. Stomach lining concerns per pt? Intake Note: Nora presents in office for an urgent need FUV based on recent ED Admission. CC; Pt spouse is reporting that the pt had both an US and a CT to their knowledge. Pt is reporting severe abd pain which is located primarily in the epigastric region as well as the RLQ. Pt states that they are also having some difficulties with BMs and stating that they are producing an abnormal, foul smell. Pt also reports having nausea and vomiting. Pt has not been able to keep any solid food down since they were here for their recent OV. Pt has been able to consume small sips of water. Pt has discharge paperwork which reports presence of fatty liver and mild diverticulosis. Paperwork also mentions possibility of ulcerations. Pt confirms that they are still taking all their medications as intended. 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 Stomach lining concerns per pt?: Details: LAST VISIT: GERD (gastroesophageal reflux disease) Chronic idiopathic constipation Bloating Diarrhea IBS (irritable bowel syndrome) Plan Patient will start taking omeprazole daily. Avoid dietary triggers and late night snacking. Staying upright for minimum 3 hours after meals discussed with patient. Patient will take Senokot in the evening. Increase fluid intake and activity to promote better bowel motility. Follow-up in the office in 3 months, sooner on as needed basis. Patient is agreeable to this plan and verbalizes understanding of instructions. She was given the opportunity to ask questions and all questions answered. ? Thank you for allowing me participate in her care Medications New omeprazole 20 mg PO DAILY 30 caps 3RF K21.9 sennosides (Natural Senna Laxative) 17.2 mg (2 x 8.6 mg) PO BEDTIME 60 tabs 3RF constipation K59.00 TODAY'S VISIT Patient is here today for requested visit. Patient was seen in the ER yesterday for right upper quadrant cramping and burning. Patient was given GI cocktail and her symptoms went away. CT scan did not show any acute processes except for hepatomegaly, splenomegaly normal gallbladder, diverticulosis without diverticulitis seen. Patient currently is on Wegovy. Feels that this is related to that. Patient is on Wegovy for weight loss. Her dose was just increased couple weeks ago. Symptoms got worse after that. Patient had normal lipase, normal liver panel, hypertriglyceridemia found. Today patient reports feeling little better, however she states that she has postprandial epigastric pain with acid reflux, occasional dyspepsia without dysphagia or odynophagia. Patient reports that even though she takes Senokot she is still not moving her bowels well. Does admit to occasional postprandial loose stools. Denies melena, hematochezia, unintentional weight loss or ribbon like stools. [facility] Medical History Rectal bleeding H. pylori infection Class 2 obesity with body mass index (BMI) of 37.0 to 37.9 in adult Acute diarrhea Low back pain radiating to lower extremity Surgical History Hx of endoscopy History of cervical polypectomy Family History Mother No problems noted. Father No problems noted. Social History Housing: Apartment Alcohol intake: never Patient Tobacco Use Status: Never used Tobacco e-Cigarette/Vaping Use: Never Used Second Hand Smoke Exposure: No service: No Current occupational status: employed Current occupational exposures/hazards: No Cognitive needs: No Hearing needs: No Vision needs: Yes Physical Exam Vital Signs: Last Vital Signs Pulse 82 12/20/23 14:43 BP 134/92 H 12/20/23 14:43 Pulse Ox 100 12/20/23 14:43 Oxygen Delivery Method Room Air 12/20/23 14:43 BMI result Body Mass Index 34.8 Assessment & Plan Assessment & Plan (1) Hepatic steatosis: Code(s): K76.0 - Fatty (change of) liver, not elsewhere classified Category: Medical (2) GERD (gastroesophageal reflux disease): Code(s): K21.9 - Gastro-esophageal reflux disease without esophagitis Category: Medical Qualifiers: Esophagitis presence: esophagitis presence not specified Qualified Code(s): K21.9 - Gastro-esophageal reflux disease without esophagitis (3) Chronic idiopathic constipation: Code(s): K59.04 - Chronic idiopathic constipation Category: Medical (4) Bloating: Code(s): R14.0 - Abdominal distension (gaseous) Category: Medical (5) Diarrhea: Code(s): R19.7 - Diarrhea, unspecified Category: Medical Qualifiers: Diarrhea type: unspecified type Qualified Code(s): R19.7 - Diarrhea, unspecified (6) IBS (irritable bowel syndrome): Code(s): K58.9 - Irritable bowel syndrome, unspecified Qualifiers: Irritable bowel syndrome type: with both diarrhea and constipation Qualified Code(s): K58.2 - Mixed irritable bowel syndrome (7) Postprandial epigastric pain: Code(s): R10.13 - Epigastric pain (8) Postprandial abdominal pain in right upper quadrant: Code(s): R10.11 - Right upper quadrant pain Plan Will send patient for ultrasound with elastography. Hepatomegaly found as well as splenomegaly. Patient will start taking Nexium in the morning and stop omeprazole. Take famotidine at bedtime. Avoid dietary triggers and late night snacking. Staying upright for minimum 3 hours after meals discussed with patient. I advised patient to stop Wegovy and speak to her PCP as clearly she is more symptomatic on the higher dose. Maybe go back to lower dose if possible if not calorie counting to help her lose weight. Avoid carbs and food that are high in fat. Vegetables and protein recommended. Patient continues to be constipated. Will send script for Dulcolax. Script for simethicone. Patient has appointment with me already. She will call our office if she will continue with symptoms or experience any other GI concerning symptoms. She is agreeable to this plan and verbalizes understanding of instructions. She was given the opportunity to ask questions and all questions answered. Thank you for allowing me to participate in her care Orders: Orders US abdomen comp w elastography 12/20/23 R16.0 - Hepatomegaly, not elsewhere classified Medications: New bisacodyl (Dulcolax (bisacodyl)) 10 mg (2 x 5 mg) PO BEDTIME 180 tabs 4RF esomeprazole magnesium (Nexium) 40 mg PO DAILY 30 caps 5RF K21.9 - Gastro- esophageal reflux disease without esophagitis simethicone (Gas Relief (simethicone)) 125 mg PO TID-QID PRN 120 caps 2RF abdominal distention R14.0 - Abdominal distension (gaseous) famotidine (Pepcid) 20 mg PO BEDTIME 30 tabs 3RF K21.9 - Gastro-esophageal reflux disease without esophagitis Refilled docusate sodium 100 mg PO BEDTIME 30 caps 3RF K59.00 - Constipation, unspecified Discontinued omeprazole Discontinued Reason: Doctor's Order 20 mg PO DAILY 30 caps 3RF K21.9 - Gastro-esophageal reflux disease without esophagitis sennosides Discontinued Reason: Doctor's Order 17.2 mg (2 x 8.6 mg) PO BEDTIME 60 tabs 3RF constipation K59.00 - Constipation, unspecified Coding Level of Care Code Est Pt Level 4 (66049) Diagnoses Hepatic steatosis K76.0 Gastroesophageal reflux disease, unspecified whether esophagitis present K21.9 Esophagitis presence: esophagitis presence not specified Chronic idiopathic constipation K59.04 Bloating R14.0 Diarrhea, unspecified type R19.7 Diarrhea type: unspecified type Irritable bowel syndrome with both constipation and diarrhea K58.2 Irritable bowel syndrome type: with both diarrhea and constipation Postprandial epigastric pain R10.13 Postprandial abdominal pain in right upper quadrant R10.11 Time Spent (min) 40 Comment 25 minutes spent with patient and additional 15 minutes spent reviewing her records
== END 2023-12-20 16:14 | disposition home or self-care (01) ==
PROVIDERS: PCP Internal Medicine; Visit Provider Nurse Practitioner Family
DX: K76.0 Fatty (change of) liver, not elsewhere classified (principal); K21.9 Gastro-esophageal reflux disease without esophagitis; K59.04 Chronic idiopathic constipation; R14.0 Abdominal distension (gaseous); R19.7 Diarrhea, unspecified; K58.2 Mixed irritable bowel syndrome; R10.13 Epigastric pain; R10.11 Right upper quadrant pain
CPT/HCPCS: 99214

== ENCOUNTER → 2023-12-20 14:21 | Outpatient (BNVA) | payer OTHER, SELFPAY | PROVIDERS: PCP Internal Medicine; Visit Provider Nurse Practitioner Family | DX: K58.2 Mixed irritable bowel syndrome (principal); K76.0 Fatty (change of) liver, not elsewhere classified; K21.9 Gastro-esophageal reflux disease without esophagitis; K59.04 Chronic idiopathic constipation; R10.31 Right lower quadrant pain; R10.13 Epigastric pain; R14.0 Abdominal distension (gaseous); R10.11 Right upper quadrant pain; R16.0 Hepatomegaly, not elsewhere classified | CPT/HCPCS: 99212 ==

== ENCOUNTER 2023-12-28 08:38 | Outpatient (AMB) | payer OTHER, SELFPAY ==
[2023-12-28 08:57] VITALS: BP 122/84; BMI 34.6
--- NOTE | 2023-12-28 08:57 | A.OFFPC_ITS ---
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 Accompanied by: Self / Same As Patient Allergies aspirin [ASPIRIN] Allergy (Severe, Verified 12/28/23 09:08) Anaphylaxis penicillin V Allergy (Severe, Verified 12/28/23 09:08) anaphylaxis Sulfa (Sulfonamide Antibiotics) [SULFA (SULFONAMIDE ANTIBIOTICS)] Allergy (Intermediate, Verified 12/28/23 09:08) RASH sulfacetamide [From Sulfacet-R] Allergy (Intermediate, Verified 12/28/23 09:08) Throat closes sulfur [From Sulfacet-R] Allergy (Intermediate, Verified 12/28/23 09:08) Throat closes peach [PEACH] Allergy (Unknown, Verified 12/28/23 09:08) UNKNOWN Medication List - Last Reconciled 12/28/23 by Lyndsay Peñaloza MD albuterol sulfate 2.5 mg (3 mL) inhalation Q4-6H PRN amitriptyline 25 mg PO BEDTIME bisacodyl (Dulcolax (bisacodyl)) 10 mg (2 x 5 mg) PO BEDTIME blood pressure monitor (Blood Pressure Kit) As directed [compression stockings 40 mmHg As directed] docusate sodium 100 mg PO BEDTIME esomeprazole magnesium (Nexium) 40 mg PO DAILY famotidine (Pepcid) 20 mg PO BEDTIME fluticasone propionate 50 mcg/actuation 2 sprays intranasal DAILY ibuprofen 800 mg PO Q8H PRN 30 days meclizine 12.5 mg PO TID PRN methylcellulose (laxative) (Citrucel) 500 mg PO BID ondansetron 8 mg PO Q12H PRN 10 days prednisone 20 mg PO DAILY 7 days semaglutide (weight loss) (Wegovy) 1.7 mg (0.75 mL) subcut QWEEK 4 weeks simethicone (Gas Relief (simethicone)) 125 mg PO TID-QID PRN spironolactone 25 mg PO DAILY 90 days sumatriptan succinate 100 mg orally; 30 days topiramate 50 mg PO BEDTIME 30 days Ventolin HFA 90 mcg/actuation (albuterol sulfate) 2 puffs inhalation Q6H PRN 30 days NS Tobacco use date assessed: 08/12/23 Dental Screening Dental Screen Date: 08/12/23 HPI HPI Comments History of Present Illness Details This is a 38-year-old female with GERD, chronic idiopathic constipation and hepatic steatosis that comes today complaining of abdominal pain and diarrhea in which had to go to the hospital at the end of November due to this matter. This might be secondary to wegovy and I advised her to hold it for 2 weeks and see how she feels. GERD stable with PPIs. Constipation has resolved for now. Has fatty liver and will start low-dose vitamin E. was advised to lose 1 to 2 lbs per week. She also complains of left breast pain that started few weeks ago at 03:00 o'clock. Denies any nipple discharge or mass palpated. [facility] Medical History (Updated 12/28/23 @ 10:08 by Lyndsay Peñaloza MD) Rectal bleeding H. pylori infection Class 2 obesity with body mass index (BMI) of 37.0 to 37.9 in adult Acute diarrhea Low back pain radiating to lower extremity Surgical History Hx of endoscopy History of cervical polypectomy Family History Mother No problems noted. Father No problems noted. Social History Housing: Apartment Alcohol intake: never Patient Tobacco Use Status: Never used Tobacco e-Cigarette/Vaping Use: Never Used Second Hand Smoke Exposure: No service: No Current occupational status: employed Current occupational exposures/hazards: No Cognitive needs: No Hearing needs: No Vision needs: Yes Questionnaire Thrive Questionnaire Date Thrive assessed: 08/12/23 LOREN-7 AMB Questionnaire LOREN-7 Date LOERN - 7 assessed: 08/12/23 Source: Developed by Drs. Js Ornelas, Kortney Raymundo, Hipolito Delarosa and colleagues, with an educational jozef from [employer] Review of Systems Const All systems reviewed & are unremarkable except as noted in HPI and below Card Denies chest pain at rest, Denies chest pain with activity, Denies edema, Denies irregular heart rhythm, Denies claudication, Denies dyspnea, Denies dyspnea on exertion, Denies orthopnea, Denies paroxysmal nocturnal dyspnea and Denies slow heart rate Resp Denies cough, Denies dyspnea and Denies dyspnea on exertion GI Denies abdominal pain, Denies change in bowel habits, Denies excessive flatus, Denies nausea and Denies vomiting Denies urinary incontinence, Denies urinary hesitancy and Denies urinary urgency Musc Denies abnormal gait, Denies atrophy, Denies deformity and Denies limited range of motion Skin/Breast Denies bleeding lesions, Denies changing lesions and Denies rash Neuro Denies abnormal gait, Denies behavioral changes and Denies lack of coordination Psych Denies behavioral changes Physical exam (Primary Care) Vital Signs: Last Vital Signs BP 122/84 12/28/23 08:57 BMI result Body Mass Index 34.6 BMI Assessment/Plan discussion: High BMI High, discussed plan: lifestyle, weight reduction, dietary and physical activity Tobacco/Smoking Status: Tobacco use Status Tobacco use date assessed 08/12/23 12/28/23 09:01 Patient Tobacco Use Status Never used Tobacco 12/28/23 09:01 e-Cigarette/Vaping Use Never Used 12/28/23 09:01 Thrive Assessment: Date of Thrive Assessment Date Thrive assessed 08/12/23 12/28/23 09:01 Resp Effort & Inspection: normal respiratory effort Auscultation: clear to auscultation bilaterally Cardio Jugular venous distension: no JVD Rate: regular rate Rhythm: regular rhythm Heart sounds: S1 normal heart sound present and S2 normal heart sound present GI Inspection: Yes normal to inspection Palpation (GI): Soft to palpation and nontender Auscultation: normal bowel sounds Office Procedures Flu Questionnaire Does the patient have a severe egg allergy?: No Immunizations Fluarix Triv [id number] (PF) 45 mcg (15 mcg x 3)/0.5 mL IM syringe Performing Provider: Lyndsay Peñaloza MD Performing Location: [facility] – [place] [facility] Documented (not given) by: KIRT Barlow on 12/28/23 09:02 Reason Not Given: Patient Refused Coding Level of Care Code Est Pt Level 4 (98449) Complex EM visit Add On G2211 Diagnoses Breast pain, left N64.4 Hepatic steatosis K76.0 Gastroesophageal reflux disease, unspecified whether esophagitis present K21.9 Esophagitis presence: esophagitis presence not specified Chronic idiopathic constipation K59.04 Time Spent (min) 24 Assessment & Plan Assessment & Plan (1) Breast pain, left: Code(s): N64.4 - Mastodynia Category: Medical Plan: Mammogram ordered. Ultrasound of the breast ordered. (2) Hepatic steatosis: Code(s): K76.0 - Fatty (change of) liver, not elsewhere classified Category: Medical Plan: Start vitamin-D. Dietary changes advised. (3) GERD (gastroesophageal reflux disease): Code(s): K21.9 - Gastro-esophageal reflux disease without esophagitis Category: Medical Qualifiers: Esophagitis presence: esophagitis presence not specified Qualified Code (s): K21.9 - Gastro-esophageal reflux disease without esophagitis Plan: Continue PPIs as needed (4) Chronic idiopathic constipation: Code(s): K59.04 - Chronic idiopathic constipation Category: Medical Plan: Hold docusate for now. Orders: Orders Influenza [id number] Immunization Today Z23 - Encounter for immunization US breast LT complete Today N64.4 - Mastodynia Lipid Panel Today E66.9 - Obesity, unspecified, E78.5 - Hyperlipidemia, unspecified MM diagnostic mammo BI Today N64.4 - Mastodynia Celiac Disease Panel Today K59.04 - Chronic idiopathic constipation Comprehensive [place]. Panel Fast Today E66.9 - Obesity, unspecified Medications: New vitamin E (dl, acetate) 180 mg PO DAILY 90 caps 1RF 90 days
== END 2023-12-28 09:20 | disposition home or self-care (01) ==
PROVIDERS: PCP Internal Medicine; Visit Provider Internal Medicine
DX: N64.4 Mastodynia (principal); K76.0 Fatty (change of) liver, not elsewhere classified; K21.9 Gastro-esophageal reflux disease without esophagitis; K59.04 Chronic idiopathic constipation; Z23 Encounter for immunization

== ENCOUNTER → 2023-12-28 08:38 | Outpatient (BNVA) | payer OTHER, SELFPAY | PROVIDERS: PCP Internal Medicine; Visit Provider Internal Medicine | DX: N64.4 Mastodynia (principal); K76.0 Fatty (change of) liver, not elsewhere classified; K21.9 Gastro-esophageal reflux disease without esophagitis; K59.04 Chronic idiopathic constipation | CPT/HCPCS: 90471; 99212 ==

== ENCOUNTER 2023-12-30 11:20 | Outpatient (REF) | payer OTHER, SELFPAY ==
[2023-12-30 12:37] LABS: Alanine Aminotransferase 17 U/L (0-31); Albumin Level 4.3 g/dL (3.5-5.0); Alkaline Phosphatase 57 U/L (39-117); Anion Gap 10 (12-20); Aspartate Amino Transferase 15 U/L (5-31); Bilirubin Total 0.4 mg/dL (0.0-1.0); Blood Urea Nitrogen 16 mg/dL (9-16); Calcium 9.3 mg/dL (8.4-10.2); Carbon Dioxide 28 mmol/L (22-29); Chloride 105 mmol/L (96-108); Cholesterol 158 mg/dL (<200); Estimated Glomerular Filt Rate > 60; Glucose Fasting 88 mg/dL (60-99); HDL Cholesterol 30 mg/dL (>40); LDL Cholesterol Calculated 89 mg/dL (<100); Potassium 4.1 mmol/L (3.3-5.1); Sodium 139 mmol/L (135-145); Total Protein 7.6 g/dL (6.5-8.0); Triglycerides 196 mg/dL (<150)
[2024-01-03 21:28] LABS: Immunoglobulin A 324 mg/dL (47-310); Transglutaminase IgA <1.0 U/mL
== END 2023-12-30 11:21 | disposition home or self-care (01) ==
LOC: HO.LAB 11:20
PROVIDERS: PCP Internal Medicine; Visit Provider Internal Medicine
DX: E66.9 Obesity, unspecified (principal); E78.5 Hyperlipidemia, unspecified; K59.04 Chronic idiopathic constipation
CPT/HCPCS: 36415; 80053; 80061; 82784; 86364

== ENCOUNTER 2024-01-04 10:50 | Day surgery (SDC) | payer OTHER, SELFPAY ==
[2024-01-04 11:18] VITALS: BMI 34.3
--- NOTE | 2024-01-04 11:22 | MHC.SHP ---
Pre-Procedural Eval Section A - 24 Hr Update-Section A only Date of Service: 01/04/24 Section B - Complete if H&P > 30 days Chief Complaint: Abdominal distension (gaseous),gerd Relevant Family History (Specify if Yes): No Relevant Social History: None Present Medications: see Short Stay Collaborative assessment Medical History: Significant History ( Rectal bleeding H. pylori infection Class 2 obesity with body mass index (BMI) of 37.0 to 37.9 in adult Acute diarrhea Low back pain radiating to lower extremity) History of Previous Operations: Relevant previous surgery/procedure and date(s) (Hx of endoscopy History of cervical polypectomy) Allergies: Allergies Allergy/AdvReac Type Severity Reaction Status Date / Time aspirin [ASPIRIN] Allergy Severe Anaphylaxis Verified 12/28/23 09:08 penicillin V Allergy Severe anaphylaxis Verified 12/28/23 09:08 Sulfa (Sulfonamide Allergy Intermediate RASH Verified 12/28/23 09:08 Antibiotics) [SULFA (SULFONAMIDE ANTIBIOTICS)] sulfacetamide Allergy Intermediate Throat Verified 12/28/23 09:08 [From Sulfacet-R] closes sulfur [From Sulfacet-R] Allergy Intermediate Throat Verified 12/28/23 09:08 closes peach [PEACH] Allergy Unknown UNKNOWN Verified 12/28/23 09:08 Review of Systems Sugical H&P ROS: Negative: Constitution, Cardiovascular, Respiratory, Neurological, Psychiatric, Hem-Onc, Allergic/Immunologic, Gastrointestinal, Genitourinary, Musculoskeletal, Integumentary, Endocrine and Eyes/Ears/Nose/Throat Exam Surgical H&P Exam: Normal: HEENT, Normal: Heart, Normal: Lungs, Normal: Extremities, Normal: Abdomen, Normal: Skin and Normal: Neurological Plan Diagnosis/Plan: Unchanged I have reviewed the history and physical and performed a pertinent physical examination on my patient. No changes have occurred unless specified. Time Spent With Patient Time: Total time managing care of this patient today ____ minutes.
[2024-01-04 11:23] VITALS: BP 141/74; PULSE 80; RESP 16; TEMP 36.2; O2SAT 99
--- NOTE | 2024-01-04 11:30 | HO.ANESPROP2 ---
Documented by User: Sandra Cabrera NP 12/31/23 11:55 HPI - Anesthesia Eval Consult details Narrative: 38yo F for Upper Endoscopy PMFSH Active Problems Active Problems: All Active Problems Hepatic steatosis (Acute) Breast pain, left (Acute) Lymphedema (Acute) Immunization due (Acute) Achilles tendonitis, bilateral (Acute) PCOS (polycystic ovarian syndrome) (Acute) Leg paresthesia (Acute) Left shoulder pain (Acute) Ingrown toenail (Acute) Neuropathy (Acute) Sinusitis (Acute) Mild asthma (Acute) GERD (gastroesophageal reflux disease) (Acute) Chronic idiopathic constipation (Acute) Palpitations (Acute) Migraine (Acute) Bilateral headaches (Acute) Dizzy (Acute) Obesity, Class II, BMI 35-39.9, isolated (Acute) Pain with bowel movements (Acute) Left shoulder pain (Acute) Pain of fifth toe (Acute) Rib pain on right side (Acute) SOB (shortness of breath) on exertion (Acute) Right shoulder pain (Acute) Neck pain (Acute) Bloating (Acute) Bad odor of urine (Acute) Diarrhea (Acute) Rectal bleeding (Acute) Class 2 obesity with body mass index (BMI) of 37.0 to 37.9 in adult (Acute) Acute diarrhea (Acute) Sinusitis, acute (Acute) Asthma (Acute) Upper respiratory infection (Acute) Shoulder pain, bilateral (Acute) Low back pain radiating to lower extremity (Acute) Past Medical History Medical History Rectal bleeding H. pylori infection Class 2 obesity with body mass index (BMI) of 37.0 to 37.9 in adult Acute diarrhea Low back pain radiating to lower extremity Family History Family History Mother No problems noted. Father No problems noted. Family history of problems with anesthesia: No Surgical History Surgical History Hx of endoscopy History of cervical polypectomy History of Problems with Anesthesia: No Social History Social History Housing: Apartment Alcohol intake: never Patient Tobacco Use Status: Never used Tobacco e-Cigarette/Vaping Use: Never Used Second Hand Smoke Exposure: No Use of substances other than those prescribed or required for medical reasons: No Advance Directives: No Advance Directives Information Provided: Yes service: No Current occupational status: employed Current occupational exposures/hazards: No Cognitive needs: No Hearing needs: No Vision needs: Yes Meds Allergies Allergy/AdvReac Type Severity Reaction Status Date / Time aspirin [ASPIRIN] Allergy Severe Anaphylaxis Verified 12/28/23 09:08 penicillin V Allergy Severe anaphylaxis Verified 12/28/23 09:08 Sulfa (Sulfonamide Allergy Intermediate RASH Verified 12/28/23 09:08 Antibiotics) [SULFA (SULFONAMIDE ANTIBIOTICS)] sulfacetamide Allergy Intermediate Throat Verified 12/28/23 09:08 [From Sulfacet-R] closes sulfur [From Sulfacet-R] Allergy Intermediate Throat Verified 12/28/23 09:08 closes peach [PEACH] Allergy Unknown UNKNOWN Verified 12/28/23 09:08 Assessment and Plan Assessment Anesthesia Assessment: Chart Reviewed Final Anesthetic Review Family History of Problems with Anesthesia: No History of Problems with Anesthesia: No Documented by User: Germaine Lynn DO 01/04/24 11:33 [facility] Past Medical History Medical History Rectal bleeding H. pylori infection Class 2 obesity with body mass index (BMI) of 37.0 to 37.9 in adult Acute diarrhea Low back pain radiating to lower extremity Family History Family History Mother No problems noted. Father No problems noted. Family history of problems with anesthesia: No Surgical History Surgical History Hx of endoscopy History of cervical polypectomy History of Problems with Anesthesia: No Social History Social History Housing: Apartment Alcohol intake: never Patient Tobacco Use Status: Never used Tobacco e-Cigarette/Vaping Use: Never Used Second Hand Smoke Exposure: No Use of substances other than those prescribed or required for medical reasons: No Advance Directives: No Advance Directives Information Provided: Yes service: No Current occupational status: employed Current occupational exposures/hazards: No Cognitive needs: No Hearing needs: No Vision needs: Yes Meds Allergies Allergy/AdvReac Type Severity Reaction Status Date / Time aspirin [ASPIRIN] Allergy Severe Anaphylaxis Verified 12/28/23 09:08 penicillin V Allergy Severe anaphylaxis Verified 12/28/23 09:08 Sulfa (Sulfonamide Allergy Intermediate RASH Verified 12/28/23 09:08 Antibiotics) [SULFA (SULFONAMIDE ANTIBIOTICS)] sulfacetamide Allergy Intermediate Throat Verified 12/28/23 09:08 [From Sulfacet-R] closes sulfur [From Sulfacet-R] Allergy Intermediate Throat Verified 12/28/23 09:08 closes peach [PEACH] Allergy Unknown UNKNOWN Verified 12/28/23 09:08 Exam Exam Date and Time: 01/04/24 1130 Height,Weight and Vital Signs: Vital Signs Temperature 97.1 F 01/04/24 11:23 Pulse Rate 80 01/04/24 11:23 Respiratory Rate 16 01/04/24 11:23 Blood Pressure 141/74 H 01/04/24 11:23 Pulse Oximetry 99 01/04/24 11:23 Oxygen Delivery Method Room Air 01/04/24 11:23 Temperature 97.1 F 01/04/24 11:23 Pulse Rate 80 01/04/24 11:23 Respiratory Rate 16 01/04/24 11:23 Blood Pressure 141/74 H 01/04/24 11:23 Pulse Oximetry 99 01/04/24 11:23 Oxygen Delivery Method Room Air 01/04/24 11:23 Height 5 ft 9 in Weight 105.233 kg Airway Mallampati Class: I TM Dist: >3cm Neck ROM: Full Loose/Missing/Broken Teeth: No (patient denies any loose or broken teeth) Heart: S1S2 Lungs: CTAB Assessment and Plan Assessment Anesthesia Assessment: Anesthesia Plan Discussed and Chart Reviewed Final Anesthetic Review Family History of Problems with Anesthesia: No History of Problems with Anesthesia: No NPO: Yes ASA Class: II Final Preanesthetic Review: No Changes in Pt Med Stat, Meds/Allgs Chart Reviewed, Consent Obtained/Reviewed and Anes Risks/Benef Reviewed Patient Risk: Low Procedure Risk: Low Anesthetic Plan Anesthetic Plan: MAC: and Agree w/ Assess. and Plan Disposition: Standard PACU
[2024-01-04 11:37] LABS: UPreg QC Valid YES; Urine Pregnancy NEGATIVE (NEGATIVE)
[2024-01-04] MEDS: Lactated Ringers 1,000 ML 100 ML IVCONT (11:37)
--- NOTE | 2024-01-04 11:55 | W.PM.OPN ---
Operative Note Operative Note Date of Service: 01/04/24 Narrative: Procedure Description: EGD Indication: abdominal pain Anesthesia: MAC FLEXIBLE TRANSORAL UPPER GASTROINTESTINAL ENDOSCOPY UPPER ENDOSCOPY Consent: Indications for the procedure and potential complications of bleeding, perforation, reaction to medications and missed diagnosis were discussed with the patient and informed consent was obtained. Instrument: Olympus GIF H 190 J mid size upper endoscope Monitoring: Vital signs and clinical assessment, continuous EKG monitoring, Pulse oximetry, Carbon Dioxide monitoring and blood pressure monitoring were done throughout the procedure. Procedure: The patient was placed in the left lateral decubitis position and pre-procedure medications were administered and a bite block was placed. The endoscope was inserted into the mouth and advanced under direct vision to the third part of duodenum. A careful inspection was made as the upper endoscope was withdrawn including a retroflexed examination of the proximal stomach; Findings and interventions are described below. Findings: Larynx:normal Esophagus: GE junction at 37 cm, diaphragm hiatus at 37 cm, normal mucosa--bx taken from distal esophagus Stomach: normal mucosa . Biopsies were obtained. Grade 2 flap valve on retroflexed examination of the cardia. Duodenum: Normal bulb and descending duodenum, bx taken Intervention: Biopsies as noted above, Impression/Findings: normal PLAN: consider GES, if ongoing sx, and possibly myofascial pain, and trial of TCA, note neg US and CT except for fatty liver
[2024-01-04 12:00] VITALS: BP 123/86; PULSE 87; RESP 16; TEMP 36.2; O2SAT 99
[2024-01-04 12:18] VITALS: BP 153/98; PULSE 67; RESP 17; TEMP 36.1; O2SAT 100
== END 2024-01-04 12:50 | disposition home or self-care (01) ==
PROVIDERS: Nurse Practitioner; PCP Internal Medicine; Visit Provider Internal Medicine Gastroenterology
PROC: 0DJ08ZZ Inspection of Upper Intestinal Tract, Via Natural or Artificial Opening Endoscopic (ICD-10-PCS; CPT 43235; principal; 2024-01-04 11:50)
DX: K21.9 Gastro-esophageal reflux disease without esophagitis (principal); R10.9 Unspecified abdominal pain; R14.0 Abdominal distension (gaseous); K44.9 Diaphragmatic hernia without obstruction or gangrene; K76.0 Fatty (change of) liver, not elsewhere classified; K59.04 Chronic idiopathic constipation; Z86.19 Personal history of other infectious and parasitic diseases; K62.5 Hemorrhage of anus and rectum; K58.9 Irritable bowel syndrome, unspecified; E66.89 Other obesity not elsewhere classified; Z68.37 Body mass index [BMI] 37.0-37.9, adult; Z79.899 Other long term (current) drug therapy; Z88.0 Allergy status to penicillin; Z88.2 Allergy status to sulfonamides
CPT/HCPCS: 43239; 81025; 88305; 88313; 88342; J1100; J1596; J2003; J2704

== ENCOUNTER → 2024-01-04 10:50 | Outpatient (BNV) | payer OTHER, SELFPAY | PROVIDERS: PCP Internal Medicine; Visit Provider Internal Medicine Gastroenterology | DX: R10.9 Unspecified abdominal pain (principal) | CPT/HCPCS: 43239 ==

== ENCOUNTER 2024-01-11 08:50 | Outpatient (REF) | payer OTHER, SELFPAY ==
[2024-01-11 10:22] LABS: Appearance Urine Clear; Color Urine Yellow; Glucose Urine UA Negative (Negative); Leukocyte Esterase Urine Negative (Negative); Nitrite Urine Negative (Negative); Specific Gravity - Urine 1.025 (1.005-1.025); UMIC TRIGGER UACC YES; Urine Blood Small (1+) (Negative); Urine Ketones Negative (Negative); Urine Protein Negative (Neg-Trace)
[2024-01-11 10:28] LABS: Bacteria Urine None Seen (None Seen); Hyaline Casts Urine 0-2 /LPF (0-2); Squamous Epithelial Cell Urine 0-2 /HPF (0-2); WBC Urine 0-5 /HPF (0-5)
== END 2024-01-11 08:51 | disposition home or self-care (01) ==
LOC: HO.US 08:50
PROVIDERS: Absent Provider Internal Medicine; PCP Internal Medicine; Visit Provider Nurse Practitioner Family
DX: R16.0 Hepatomegaly, not elsewhere classified (principal); R31.9 Hematuria, unspecified
CPT/HCPCS: 74018; 76700; 76981; 81001

== ENCOUNTER → 2024-01-18 08:01 | Outpatient (REF) | payer OTHER, SELFPAY ==
--- NOTE | ~2024-01-18 | NM_ITS ---
EXAMINATION: KS RADIONUCLIDE SOLID FOOD GASTRIC EMPTYING 4-HOUR STUDY CLINICAL INFORMATION: Early satiety. COMPARISON: None TECHNIQUE: A standard meal consisting of 4 oz of Egg Beaters brand tagged with 900 microcuries Tc-99m Sulfur Colloid, 8 oz water and 2 slices of toast with jelly was administered orally to the patient. Images were obtained using a dual head gamma camera in the anterior and posterior projections over of the stomach immediately post ingestion and at hourly intervals up to 4 hours post ingestion. The anterior and posterior counts at each time interval were averaged using the geometric mean and expressed as percentage of the immediate post ingestion counts. FINDINGS: There is good visualization of activity in the stomach immediately post ingestion. As the study progresses, there is good clearance of activity from the stomach and visualization of progressively increasing small bowel activity. By the end of the study, there is almost no retention noted in the stomach. Retention in the stomach at each time interval was: 1 hour 22% (normal 37%-90%) 2 hours 23% (normal 30%-60%) 3 hours 2% 4 hours 1% (normal 0%-10%) KS/KS gastric emptying study IMPRESSION: Rapid gastric emptying showing less than 30% retention at 1 hour post ingestion images. For solid meal, rapid gastric emptying is less than 30% at 60 minutes. Delayed gastric emptying criteria is more than 60% remaining at 120 minutes or more than 10% at 240 minutes. The 4-hour value is the best discriminator of a normal or abnormal result). Gastric emptying study grading per JNMT Consensus Recommendations in 2008 (https://tech.snmjournals.org/content/36/1/44) Grade 1 (mild retention): 11-20% at 4h Grade 2 (moderate retention): 21-35% at 4h Grade 3 (severe retention): 36-50% at 4h Grade 4 (very severe retention): >50% retention at 4h Electronically signed by: Polo Parada MD 01/30/2024 01:13 PM [facility] [place]
== END ==
LOC: HO.NUCMED 08:01
PROVIDERS: PCP Internal Medicine; Visit Provider Internal Medicine Gastroenterology
DX: R68.81 Early satiety (principal)
CPT/HCPCS: 78264; A9541

== ENCOUNTER 2024-01-18 12:17 | Emergency (ER) | payer OTHER, SELFPAY ==
--- NOTE | 2024-01-18 12:31 | ED_ITS ---
HPI - Extremity Injury (Lower) General Chief Complaint: Extremity Injury, Lower Stated Complaint: Toenail infection Time Seen by Provider: 01/18/24 12:46 Source: patient Mode of arrival: ambulatory Limitations: no limitations History of Present Illness ED Provider: Kan Holloway HPI Narrative: 38-year-old female presents to ED for painful big toe ingrown toenail. Patient denies any trauma, ulcers, pus discharge, green discharge, hotness, redness, bluish black discoloration, fever, chills, calf pain, chest pain, shortness of breath. Related Data Previous Rx's ?Medication ?Instructions ?Recorded methylcellulose (laxative) 500 mg 500 mg PO BID #180 tabs 09/08/21 tablet (Citrucel) albuterol sulfate 2.5 mg/3 mL 2.5 mg (3 mL) inhalation Q4-6H PRN 09/23/22 (0.083 %) solution for nebulization shortness of breath or wheezing #90 mL meclizine 12.5 mg tablet 12.5 mg PO TID PRN dizziness #10 11/15/22 tabs blood pressure monitor (Blood #1 ea 12/10/22 Pressure Kit) fluticasone propionate 50 2 spray intranasal DAILY #16 grams 04/11/23 mcg/actuation nasal spray,suspension Ventolin HFA 90 mcg/actuation 2 puff inhalation Q6H PRN 06/09/23 aerosol inhaler (albuterol sulfate) shortness of breath or wheezing 30 days #8 grams amitriptyline 25 mg tablet 25 mg PO BEDTIME #30 tabs 08/09/23 topiramate 50 mg tablet 50 mg PO BEDTIME 30 days #30 tabs 08/12/23 compression stockings 40 mmHg #1 ea 08/20/23 ibuprofen 800 mg tablet 800 mg PO Q8H PRN pain 30 days #90 10/13/23 tabs spironolactone 25 mg tablet 25 mg PO DAILY 90 days #90 tabs 11/03/23 ondansetron 8 mg disintegrating 8 mg PO Q12H PRN nausea and 12/15/23 tablet vomiting 10 days #20 tabs bisacodyl 5 mg tablet,delayed 10 mg (2 x 5 mg) PO BEDTIME #180 12/20/23 release (Dulcolax (bisacodyl)) tabs docusate sodium 100 mg capsule 100 mg PO BEDTIME #30 caps 12/20/23 famotidine 20 mg tablet (Pepcid) 20 mg PO BEDTIME #30 tabs 12/20/23 simethicone 125 mg capsule (Gas 125 mg PO TID-QID PRN abdominal 12/20/23 Relief (simethicone)) distention #120 caps vitamin E (dl, acetate) 180 mg 180 mg PO DAILY 90 days #90 caps 12/28/23 (400 unit) capsule triamcinolone acetonide 0.1 % 1 appl topical BID 2 weeks #80 01/18/24 topical cream grams Allergies Allergy/AdvReac Type Severity Reaction Status Date / Time aspirin [ASPIRIN] Allergy Severe Anaphylaxis Verified 12/28/23 09:08 penicillin V Allergy Severe anaphylaxis Verified 12/28/23 09:08 Sulfa (Sulfonamide Allergy Intermediate RASH Verified 12/28/23 09:08 Antibiotics) [SULFA (SULFONAMIDE ANTIBIOTICS)] sulfacetamide Allergy Intermediate Throat Verified 12/28/23 09:08 [From Sulfacet-R] closes sulfur [From Sulfacet-R] Allergy Intermediate Throat Verified 12/28/23 09:08 closes peach [PEACH] Allergy Unknown UNKNOWN Verified 12/28/23 09:08 banana Allergy Unknown Verified 01/18/24 12:34 watermelon Allergy Unknown Verified 01/18/24 12:34 Review of Systems 2 Review of Systems: left toe ingrown toe nail Yes all other systems are reviewed and are negative PMFSH Past Medical History Medical History Rectal bleeding H. pylori infection Class 2 obesity with body mass index (BMI) of 37.0 to 37.9 in adult Acute diarrhea Low back pain radiating to lower extremity Surgical History Hx of endoscopy History of cervical polypectomy Family History Family History Mother No problems noted. Father No problems noted. Social History Social History Housing: Apartment Alcohol intake: never Patient Tobacco Use Status: Never used Tobacco e-Cigarette/Vaping Use: Never Used Second Hand Smoke Exposure: No Advance Directives: No Advance Directives Information Provided: No Do you have a plan to hurt others: No Plan service: No Current occupational status: employed Current occupational exposures/hazards: No Cognitive needs: No Hearing needs: No Vision needs: Yes Physical Exam 2 Vital Signs: Vital Signs: Last Vital Signs Temp 98 F 01/18/24 13:27 Pulse 61 01/18/24 13:27 Resp 19 01/18/24 13:27 BP 164/89 H 01/18/24 13:27 Pulse Ox 99 01/18/24 13:27 BMI result Body Mass Index 33.5 Const: General: cooperative, healthy appearing, comfortable, no acute distress, well developed, alert, awake and Physically active O rientation/consciousness: patient oriented x3 HEENT: Head: Yes normal to inspection, Yes No palpable skull fracture present, Yes normocephalic and Yes atraumatic Eyes: General: appearance normal, both eyes and all related structures Neck: Neck: Yes normal visual inspection, Yes full ROM, Yes no lymphadenopathy, Yes no meningeal signs, Yes trachea midline, Yes supple, No anterior neck swelling and No tender Chest: Chest palpation & inspection: normal inspection of the chest and normal palpation of entire chest wall Resp: Effort & Inspection: normal respiratory effort and able to speak in complete sentences Auscultation: clear to auscultation bilaterally Cardio: Jugular venous distension: no JVD Heart sounds: S1 normal heart sound present and S2 normal heart sound present GI: Inspection: Yes normal to inspection Palpation (GI): Soft to palpation, not firm, nontender, no guarding and not rigid : General: No CVA tenderness and Yes no CVA tenderness Back/Spine/Pelvis: Back: no CVA tenderness, No CVA tenderness and No back tenderness Skin: General skin exam: no rashes or lesions noted, elasticity normal and turgor normal Neuro: General: patient oriented x3, gait normal, tone normal, moves all extremities, Normal light touch and pain sensation, no meningeal signs, no focal motor deficits, CN's II-XI intact bilaterally and normal sensation to monofilament Extrem: General: Yes normal to inspection, Yes full ROM and Yes capillary refill normal Ankle/foot/toe images: 1. Slight inflammation. Negative for any erythema, pus discharge, ulcers, bluish black discoloration, or deformity. Positive ingrown toenail. Rest of extremity normal. Motor/neuro/vascular exam intact Psych: Appearance: grossly normal, well kempt and not disheveled Course Course Course Narrative: This is a Rapid Medical Exam performed in triage by Deidra Martinez PA-C. Full HPI, ROS and PE to be performed by primary ED provider. 38-year-old female with a medical history sinusitis, asthma, GERD, migraines, obesity, presenting to the ED c/o infection in great toenail to LLE x1 week. attempted to cut out at home w/o relief. Would like it cut out today PE: +ingrown toenail to LLE. mild swelling. no erythema +ttp Plan: excision Medical Decision Making Medical Decision Making MDM Narrative: 38-year-old female presents to ED for left toe ingrown toenail. Presently no signs of infection on 1st great toe ingrown toenail. No indication for excision. Patient is educated on soaking foot in warm water for 20 minutes and will be given high dose steroids for 2 weeks. Patient informed to return to the ED immediately for any swelling, redness, pus discharge, bluish black discoloration, any other concerning symptoms. Patient explained worrisome signs and informed to return to the ED immediately. Not suspecting osteomyelitis, cellulitis, gangrene, arterial occlusion, or DVT. Differential Diagnosis Differential Diagnoses: The differential diagnosis associated with the presentation includes (Ingrown toenail, paronychia) Admission/Observation Consideration of admission/observation: Escalation of care including admission/observation considered Independent Historian Clinical information obtained from an independent historian. History obtained from or confirmed by: Other (Patient) External Record Review External record reviewed: Other (Steroids) Prescription Management I considered prescription management with: Other (steroids) Discharge Plan Discharge Clinical Impression: Ingrowing nail, left great toe Patient Disposition: Home, Self-Care Instructions: Ingrown Nail (ED), Warm Compress or Soak (ED) Additional Instructions: Presently no indication for excision. Recommend soaking foot in warm soapy water twice a day for 10-20 minutes. Also you will be prescribed high dose steroid cream to placed on ingrown toenail and inflamed area for the next two weeks. Return to the ED immediately for any increased swelling/redness, pus discharge, fever, chills, bluish black discoloration, red streaks, or any other concerning symptoms. Recommend follow-up with PCP Prescriptions: New triamcinolone acetonide 0.1 % cream 1 appl topical BID 14 Days Qty: 80 0RF Rx Instructions: Place on ingrown toenail and inflamed area No Action albuterol sulfate 2.5 mg /3 mL (0.083 %) solution for nebulization 2.5 mg inhalation Q4-6H PRN (Reason: shortness of breath or wheezing) Qty: 90 0RF (DME) blood pressure monitor [Blood Pressure Kit] Kit See Rx Instructions .Route Qty: 1 0RF Rx Instructions: As directed fluticasone propionate 50 mcg/actuation spray,suspension 2 spray intranasal DAILY Qty: 16 5RF albuterol sulfate [Ventolin HFA] 90 mcg/actuation HFA aerosol inhaler 2 puff inhalation Q6H PRN (Reason: shortness of breath or wheezing) 30 Days Qty: 8 1RF (DME) compression stockings 40 mmHg knee high See Rx Instructions .Route .MEDSUPPLY Qty: 1 0RF Rx Instructions: As directed ibuprofen 800 mg tablet 800 mg PO Q8H PRN (Reason: pain) 30 Days Qty: 90 0RF spironolactone 25 mg tablet 25 mg PO DAILY 90 Days Qty: 90 0RF ondansetron 8 mg tablet,disintegrating 8 mg PO Q12H PRN (Reason: nausea and vomiting) 10 Days Qty: 20 0RF meclizine 12.5 mg tablet 12.5 mg PO TID PRN (Reason: dizziness) Qty: 10 0RF amitriptyline 25 mg tablet 25 mg PO BEDTIME Qty: 30 0RF topiramate 50 mg tablet 50 mg PO BEDTIME 30 Days Qty: 30 6RF Citrucel 500 mg tablet 500 mg PO BID Qty: 180 2RF docusate sodium 100 mg capsule 100 mg PO BEDTIME Qty: 30 3RF bisacodyl [Dulcolax (bisacodyl)] 5 mg tablet,delayed release (DR/EC) 10 mg PO BEDTIME Qty: 180 4RF famotidine [Pepcid] 20 mg tablet 20 mg PO BEDTIME Qty: 30 3RF simethicone [Gas Relief (simethicone)] 125 mg capsule 125 mg PO TID-QID PRN (Reason: abdominal distention) Qty: 120 2RF vitamin E (dl, acetate) 180 mg (400 unit) capsule 180 mg PO DAILY 90 Days Qty: 90 1RF Stand Alone Forms: Work/School Release Interventions: ED Discharge Assessment Last Done: 01/18/24 13:27 Discharge Date/Time: 01/18/24 13:28 Print Language: Indonesian
[2024-01-18 12:32] VITALS: BP 164/89; PULSE 61; RESP 19; TEMP 36.6; O2SAT 99; BMI 33.5
[2024-01-18 13:27] VITALS: BP 164/89; PULSE 61; RESP 19; TEMP 36.6; O2SAT 99
== END 2024-01-18 13:28 | disposition home or self-care (01) ==
PROVIDERS: Emergency Provider Emergency Medicine; PCP Internal Medicine
DX: L60.0 Ingrowing nail (principal); Z79.899 Other long term (current) drug therapy
CPT/HCPCS: 99282; 99283

== ENCOUNTER 2024-02-14 14:28 | Outpatient (REF) | payer OTHER, SELFPAY ==
--- NOTE | ~2024-02-14 | US_ITS ---
EXAMINATION: MM DIAGNOSTIC DIGITAL BREAST TOMOSYNTHESIS, BILATERAL US BREAST LIMITED, LEFT MAMMOGRAPHY: CLINICAL INFORMATION: 39-year-old female, family history of breast CA in mother and grandmother, age unknown, complaining of pain and burning left breast upper outer quadrant. Also due for yearly. COMPARISON: Mammography: 06/17/2018. TECHNIQUE: Digital breast tomosynthesis is performed in both the craniocaudal and mediolateral oblique views along with computer-aided detection (CAD). Synthesized 2D images are generated from the tomosynthesis. This was followed by targeted left breast ultrasound in the region of patient complaint. FINDINGS: There are scattered areas of fibroglandular density (ACR BI-RADS breast composition Category b). There are no suspicious masses, suspicious grouped calcifications, or areas of architectural distortion in either breast. The parenchymal pattern is stable from prior exams. There is no skin or axillary abnormality. No mammographic abnormality in the upper outer quadrant in the area of breast pain. ULTRASOUND: CLINICAL INFORMATION: Upper outer quadrant left breast pain. COMPARISON: 06/17/2018. TECHNIQUE: Targeted sonographic evaluation was performed using a high frequency linear transducer. Attention was given to the upper outer quadrant of the left breast in the region of patient complaint. Selected archived documentation. FINDINGS: LEFT BREAST: There is a mixture of fatty and fibroglandular tissue. No suspicious mass is seen. There is no pathologic acoustic shadowing. There is no cystic abnormality. No abnormal lymph nodes. There is no sonographic correlate to the focus of upper outer quadrant left breast pain. US/US breast LT limited mamm only IMPRESSION: 1. There are no findings suspicious for malignancy in either breast. 2. No mammographic or ultrasonographic correlate to the upper outer quadrant left breast pain. Recommend clinical management and follow-up. 3. Otherwise, recommend resuming routine screening mammography at age 40. OVERALL ASSESSMENT: Mammography: BI-RADS 1 - Negative Ultrasound: BI-RADS 1 - Negative RECOMMENDATION: Mammo at 40 or earlier if clinically needed This patient's information was entered into a reminder system with a target due date for their next mammogram. Electronically signed by: Nikita Turner MD 02/14/2024 03:36 PM [facility]
== END 2024-02-14 14:29 | disposition home or self-care (01) ==
LOC: HO.MAMMO 14:28
PROVIDERS: PCP Internal Medicine; Visit Provider Internal Medicine
DX: N64.4 Mastodynia (principal)
CPT/HCPCS: 76642; 77062; 77066

== ENCOUNTER → 2024-02-14 15:30 | Outpatient (BNV) | payer OTHER, SELFPAY | PROVIDERS: PCP Internal Medicine; Visit Provider Radiology Diagnostic Radiology | DX: N64.4 Mastodynia (principal) | CPT/HCPCS: 76642; 77062; 77066 ==

== ENCOUNTER 2024-02-15 14:48 | Outpatient (AMB) | payer OTHER, SELFPAY ==
[2024-02-15 15:09] VITALS: BP 136/82; BMI 35.6
--- NOTE | 2024-02-15 15:09 | MHC.PC.OV ---
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: No Accompanied by: Self / Same As Patient Allergies aspirin [ASPIRIN] Allergy (Severe, Verified 02/15/24 15:47) Anaphylaxis penicillin V Allergy (Severe, Verified 02/15/24 15:47) anaphylaxis Sulfa (Sulfonamide Antibiotics) [SULFA (SULFONAMIDE ANTIBIOTICS)] Allergy (Intermediate, Verified 02/15/24 15:47) RASH sulfacetamide [From Sulfacet-R] Allergy (Intermediate, Verified 02/15/24 15:47) Throat closes sulfur [From Sulfacet-R] Allergy (Intermediate, Verified 02/15/24 15:47) Throat closes peach [PEACH] Allergy (Unknown, Verified 02/15/24 15:47) UNKNOWN banana Allergy (Verified 02/15/24 15:47) Unknown watermelon Allergy (Verified 02/15/24 15:47) Unknown Medication List - Last Reconciled 02/15/24 by Lyndsay Peñaloza MD albuterol sulfate 2.5 mg (3 mL) inhalation Q4-6H PRN amitriptyline 25 mg PO BEDTIME bisacodyl (Dulcolax (bisacodyl)) 10 mg (2 x 5 mg) PO BEDTIME blood pressure monitor (Blood Pressure Kit) As directed [compression stockings 40 mmHg As directed] docusate sodium 100 mg PO BEDTIME famotidine (Pepcid) 20 mg PO BEDTIME fluticasone propionate 50 mcg/actuation 2 sprays intranasal DAILY ibuprofen 800 mg PO Q8H PRN 30 days meclizine 12.5 mg PO TID PRN methylcellulose (laxative) (Citrucel) 500 mg PO BID ondansetron 8 mg PO Q12H PRN 10 days simethicone (Gas Relief (simethicone)) 125 mg PO TID-QID PRN spironolactone 25 mg PO DAILY 90 days topiramate 50 mg PO BEDTIME 30 days triamcinolone acetonide 0.1% 1 appl topical BID 2 weeks Ventolin HFA 90 mcg/actuation (albuterol sulfate) 2 puffs inhalation Q6H PRN 30 days NS vitamin E (dl, acetate) 180 mg PO DAILY 90 days Tobacco use date assessed: 08/12/23 Dental Screening Dental Screen Date: 08/12/23 HPI HPI Comments History of Present Illness Details The patient is a 39-year-old female presenting for her physical exam with pain in the left shoulder. The shoulder pain has been severe enough to limit her ability to move the shoulder freely. The history is significant for a recent accident, and she noted that the shoulder pain has persisted since then, causing difficulty due to its severity. The onset was approximately two years ago. Current management includes the use of topical creams to alleviate pain, with varying degrees of success. Additionally, the patient is experiencing side effects from Wegovy, which included gastrointestinal discomfort and multiple other reported side effects. The specific onset of the side effects was not clarified, but they were significant enough to mention during the consultation. The patient is concerned about the management of these symptoms which are consistent with known side effects of the medication. - Recently underwent an endoscopic procedure, last performed in 2021. - Last Pap smear performed less than four years ago. - Discussed the need for tetanus vaccination and its frequency every ten years. [facility] Medical History Rectal bleeding H. pylori infection Class 2 obesity with body mass index (BMI) of 37.0 to 37.9 in adult Acute diarrhea Low back pain radiating to lower extremity Surgical History Hx of endoscopy History of cervical polypectomy Family History (Updated 02/15/24 @ 15:52 by Lyndsay Peñaloza MD) Mother Cervical cancer Father Diabetes mellitus Essential hypertension Social History Housing: Apartment Alcohol intake: never Patient Tobacco Use Status: Never used Tobacco e-Cigarette/Vaping Use: Never Used Second Hand Smoke Exposure: No service: No Current occupational status: employed Current occupational exposures/hazards: No Cognitive needs: No Hearing needs: No Vision needs: Yes Questionnaire Thrive Questionnaire Date Thrive assessed: 08/12/23 LOREN-7 AMB Questionnaire LOREN-7 Date LOREN - 7 assessed: 08/12/23 Source: Developed by Kortney Barajas Zackary, Hipolito Delarosa and colleagues, with an educational jozef from [employer]. Review of Systems Const All systems reviewed & are unremarkable except as noted in HPI and below Card Denies chest pain at rest, Denies chest pain with activity, Denies edema, Denies irregular heart rhythm, Denies claudication, Denies dyspnea, Denies dyspnea on exertion, Denies orthopnea, Denies paroxysmal nocturnal dyspnea and Denies slow heart rate Resp Denies cough, Denies dyspnea and Denies dyspnea on exertion GI Denies abdominal pain, Denies change in bowel habits, Denies excessive flatus, Denies nausea and Denies vomiting Neuro Denies behavioral changes and Denies lack of coordination Psych Denies behavioral changes Physical exam (Primary Care) Vital Signs: Last Vital Signs BP 136/82 02/15/24 15:09 BMI result Body Mass Index 35.6 BMI Assessment/Plan discussion: High BMI High, discussed plan: lifestyle, weight reduction, dietary and physical activity Tobacco/Smoking Status: Tobacco use Status Tobacco use date assessed 08/12/23 02/15/24 15:15 Patient Tobacco Use Status Never used Tobacco 02/15/24 15:15 e-Cigarette/Vaping Use Never Used 02/15/24 15:15 Thrive Assessment: Date of Thrive Assessment Date Thrive assessed 08/12/23 02/15/24 15:15 [facility] Head: Yes normal to inspection, Yes normocephalic and Yes atraumatic Ears: external ears normal Eyes General: appearance normal, both eyes and all related structures Eyelids: Yes eyelids normal Conjunctivae: conjunctivae normal Neck Neck: Yes normal visual inspection and Yes supple Resp Effort & Inspection: normal respiratory effort Auscultation: clear to auscultation bilaterally Cardio Jugular venous distension: no JVD Rate: regular rate Rhythm: regular rhythm Heart sounds: S1 normal heart sound present and S2 normal heart sound present GI Inspection: Yes normal to inspection Palpation (GI): Soft to palpation and nontender Auscultation: normal bowel sounds Skin General skin exam: no rashes or lesions noted Neuro General: no focal motor deficits Extrem General: Yes full ROM Psych Appearance: grossly normal Office Procedures Flu Questionnaire Does the patient have a severe egg allergy?: No Immunizations Fluarix Triv [id number] (PF) 45 mcg (15 mcg x 3)/0.5 mL IM syringe Performing Provider: Lyndsay Peñaloza MD Performing Location: [facility] [place] [facility] Documented (not given) by: KIRT Barlow on 02/15/24 15:16 Reason Not Given: Patient Refused Boostrix Tdap 2.5 Lf unit-8 mcg-5 Lf/0.5 mL intramuscular syringe Performing Provider: Lyndsay Peñaloza MD Performing Location: [facility] [place] [facility] Administered by: KIRT Barlow on 02/15/24 16:04 Dose Route Admin Location Dispensed Lot Number Expiration Date NDC [employer] Counselor 0.5 mL IM Right Deltoid 0.5 mL [id number] 04/12/26 [id number] [employer] VIS Given Date VIS Provided VIS Publication Date 02/15/24 Single Vaccine 20 Eligibility Eligibility Date Funding Source Not [facility] Eligible 02/15/24 Private Coding Level of Care Code Est Pt Level 3 (85565) Est Pt Prev Care 18-39y(28845) Diagnoses Physical exam Z00.00 Left shoulder pain M25.512 Time Spent (min) 33 Assessment & Plan Assessment & Plan (1) Physical exam: Code(s): Z00.00 - Encounter for general adult medical examination without abnormal findings Category: Medical (2) Left shoulder pain: Code(s): M25.512 - Pain in left shoulder Category: Medical Plan - Address the shoulder pain with continued topical analgesic application. Consideration of further evaluation or possible physical therapy depending on progression. - Review current use and potential discontinuation or modification of Wegovy due to side effects. Evaluate alternative weight management strategies. - Administer tetanus vaccination as indicated. - Continued monitoring of side effects from medications and potential adjustments in treatment to mitigate them. Discussed the need to assess the impact of medication use continuously. Patient was informed and verbally consented to the use of an ambient scribe for clinic note documentation during this visit. During the visit, we discussed the possibility of shoulder pain management, focusing on topical treatments until further evaluation can be done. I recommended continuing with the current pain relief measures and noted the need for further assessment if symptoms do not improve. We reviewed the patient's experience with Wegovy and associated side effects. The significance of monitoring these side effects was emphasized. We discussed alternative options for weight management and agreed on maintaining communication regarding any worsening symptoms. Tetanus vaccination administration was planned to ensure up-to-date immunization status. I explained the importance of the vaccine and its ten-year interval. Orders: Orders Influenza [id number] Immunization 02/15/24 Z23 - Encounter for immunization TDaP Immunization 02/15/24 Z23 - Encounter for immunization Medications: New diclofenac sodium 1% (Arthritis Pain (diclofenac)) apply to single elbow, wrist or hand; for hand includes palm/fingers/back of hand 2 grams topical QID 30 days 100 grams 0RF Patient Instructions: Advised to do diet and exercise to reach BMI goal less than 30 since had side effects on wegovy 1 mg.
== END 2024-02-15 16:06 | disposition home or self-care (01) ==
LOC: HO.HMCH 14:48
PROVIDERS: PCP Internal Medicine; Visit Provider Internal Medicine
DX: Z00.00 Encounter for general adult medical examination without abnormal findings (principal); M25.512 Pain in left shoulder

== ENCOUNTER → 2024-02-15 14:48 | Outpatient (BNVA) | payer OTHER, SELFPAY | PROVIDERS: PCP Internal Medicine; Visit Provider Internal Medicine | DX: Z00.00 Encounter for general adult medical examination without abnormal findings (principal); Z23 Encounter for immunization; M25.512 Pain in left shoulder | CPT/HCPCS: 90471; 90715; 99212; 99395 ==

== ENCOUNTER 2024-02-23 08:31 | Outpatient (AMB) | payer OTHER, SELFPAY ==
[2024-02-23 08:33] VITALS: BP 134/74; PULSE 76; O2SAT 99; BMI 36.0
--- NOTE | 2024-02-23 08:33 | A.OFFVIS_ITS ---
Vital Signs 02/23/24 08:33 Height 5 ft 9 in Weight 243 lb 13.3 oz BMI 36.0 BP 134/74 Blood Pressure Location Rt brachial Position Sitting Pulse 76 Pulse Source Pulse Oximeter Pulse Oximetry (%) 99 Oxygen Delivery Method Room Air Intake Visit Reasons: s/p egd Intake Note: Nora presents in office today for a scheduled s/p FUV CC; Any changes or new sx since last visit?. Pt does report still experiencing the RUQ and R Flank pain which they report has been a chronic issue. Pt also still experiencing diarrhea, N/V surrounding consumption of anything except water. Pt also reports that pain is worse with movement. Any labs or diagnostics since last visit? None s/p EGD w. TH Custody Officer Required: No Allergies aspirin [ASPIRIN] Allergy (Severe, Verified 02/23/24 08:38) Anaphylaxis penicillin V Allergy (Severe, Verified 02/23/24 08:38) anaphylaxis Sulfa (Sulfonamide Antibiotics) [SULFA (SULFONAMIDE ANTIBIOTICS)] Allergy (Intermediate, Verified 02/23/24 08:38) RASH sulfacetamide [From Sulfacet-R] Allergy (Intermediate, Verified 02/23/24 08:38) Throat closes sulfur [From Sulfacet-R] Allergy (Intermediate, Verified 02/23/24 08:38) Throat closes peach [PEACH] Allergy (Unknown, Verified 02/23/24 08:38) UNKNOWN banana Allergy (Verified 02/23/24 08:38) Unknown watermelon Allergy (Verified 02/23/24 08:38) Unknown HPI HPI s/p egd: Details: LAST VISIT: Hepatic steatosis GERD (gastroesophageal reflux disease) Chronic idiopathic constipation Bloating Diarrhea IBS (irritable bowel syndrome) Postprandial epigastric pain Postprandial abdominal pain in right upper quadrant Plan Will send patient for ultrasound with elastography. Hepatomegaly found as well as splenomegaly. Patient will start taking Nexium in the morning and stop omeprazole. Take famotidine at bedtime. Avoid dietary triggers and late night snacking. Staying upright for minimum 3 hours after meals discussed with patient. I advised patient to stop Wegovy and speak to her PCP as clearly she is more symptomatic on the higher dose. Maybe go back to lower dose if possible if not calorie counting to help her lose weight. Avoid carbs and food that are high in fat. Vegetables and protein recommended. Patient continues to be constipated. Will send script for Dulcolax. Script for simethicone. Patient has appointment with me already. She will call our office if she will continue with symptoms or experience any other GI concerning symptoms. She is agreeable to this plan and verbalizes understanding of instructions. She was given the opportunity to ask questions and all questions answered. ? Thank you for allowing me to participate in her care Orders Orders US abdomen comp w elastography 12/20/23 R16.0 Medications New bisacodyl (Dulcolax (bisacodyl)) 10 mg (2 x 5 mg) PO BEDTIME 180 tabs 4RF esomeprazole magnesium (Nexium) 40 mg PO DAILY 30 caps 5RF K21.9 simethicone (Gas Relief (simethicone)) 125 mg PO TID-QID PRN 120 caps 2RF abdominal distention R14.0 famotidine (Pepcid) 20 mg PO BEDTIME 30 tabs 3RF K21.9 Refilled docusate sodium 100 mg PO BEDTIME 30 caps 3RF K59.00 Discontinued omeprazole Discontinued Reason: Doctor's Order 20 mg PO DAILY 30 caps 3RF K21.9 sennosides Discontinued Reason: Doctor's Order 17.2 mg (2 x 8.6 mg) PO BEDTIME 60 tabs 3RF constipation K59.00 UPPER ENDOSCOPY: Findings: Larynx:normal Esophagus: GE junction at 37 cm, diaphragm hiatus at 37 cm, normal mucosa--bx taken from distal esophagus Stomach: normal mucosa . Biopsies were obtained. Grade 2 flap valve on retroflexed examination of the cardia. Duodenum: Normal bulb and descending duodenum, bx taken Intervention: Biopsies as noted above, Impression/Findings: normal PLAN: consider GES, if ongoing sx, and possibly myofascial pain, and trial of TCA, note neg US and CT except for fatty liver TODAY'S VISIT Patient is here today for follow-up and to discuss upper endoscopy results. Patient denies any ill effects from anesthesia or procedure itself. Patient reports no nausea after the procedure. Patient continues to have epigastric pain postprandially and feels bloated throughout the whole day no med what she eats. Previously CT scan and ultrasound showed fatty liver otherwise no abnormal findings. In September of 2021 patient had HIDA scan that showed 48% EF of the gallbladder. Patient reports that she feels tenderness in that area. Stopped taking Wegovy as she was not feeling well. Patient is having abdominal pain and cramping. Currently she is moving her bowels better, taking Dulcolax. Patient was taking Nexium, however she states that it was not helping her and she would like to go back on omeprazole. Patient denies feeling full after meals. Patient is on amitriptyline already. [facility] Medical History Rectal bleeding H. pylori infection Class 2 obesity with body mass index (BMI) of 37.0 to 37.9 in adult Acute diarrhea Low back pain radiating to lower extremity Surgical History Hx of endoscopy History of cervical polypectomy Family History Mother Cervical cancer Father Diabetes mellitus Essential hypertension Social History Housing: Apartment Alcohol intake: never Patient Tobacco Use Status: Never used Tobacco e-Cigarette/Vaping Use: Never Used Second Hand Smoke Exposure: No service: No Current occupational status: employed Current occupational exposures/hazards: No Cognitive needs: No Hearing needs: No Vision needs: Yes Review of Systems Const Denies weight gain and Denies weight loss ENT Reports no additional complaints, Denies dysphagia and Denies odynophagia Card Reports no additional complaints Resp Reports no additional complaints GI Reports abdominal pain (RUQ and epigastric), Denies belching, Denies melena, Reports bloating, Denies change in bowel habits, Reports constipation, Denies dysphagia, Denies excessive flatus, Denies dyspepsia, Reports heartburn, Denies diarrhea, Denies loose stools, Denies nausea, Denies odynophagia and Denies vomiting Reports no additional complaints Musc Reports no additional complaints Neuro Reports no additional complaints Psych Reports no additional complaints Endo Reports no additional complaints Physical Exam Vital Signs: Last Vital Signs Pulse 76 02/23/24 08:33 BP 134/74 02/23/24 08:33 Pulse Ox 99 02/23/24 08:33 Oxygen Delivery Method Room Air 02/23/24 08:33 BMI result Body Mass Index 36.0 Const General: healthy appearing and no acute distress Nutritional Appearance: obese Orientation/consciousness: patient oriented x3 Resp Effort & Inspection: normal respiratory effort, able to speak in complete sentences, no tracheal deviation and symmetric chest movement Auscultation: clear to auscultation bilaterally Cardio Rate: regular rate GI Inspection: Yes normal to inspection, No distended and Yes obesity Palpation (GI): Soft to palpation, not firm, nontender and No hepatosplenomegaly present Auscultation: normal bowel sounds General: Yes no CVA tenderness Back/Spine/Pelvis Back: no CVA tenderness Skin General skin exam: elasticity normal, turgor normal and dry skin Neuro General: patient oriented x3 Psych Appearance: grossly normal Mental Status: mental status grossly normal Assessment & Plan Assessment & Plan (1) Hepatic steatosis: Code(s): K76.0 - Fatty (change of) liver, not elsewhere classified Category: Medical (2) GERD (gastroesophageal reflux disease): Code(s): K21.9 - Gastro-esophageal reflux disease without esophagitis Category: Medical Qualifiers: Esophagitis presence: esophagitis presence not specified Qualified Code(s): K21.9 - Gastro-esophageal reflux disease without esophagitis (3) Chronic idiopathic constipation: Code(s): K59.04 - Chronic idiopathic constipation Category: Medical (4) Bloating: Code(s): R14.0 - Abdominal distension (gaseous) Category: Medical (5) Diarrhea: Code(s): R19.7 - Diarrhea, unspecified Category: Medical Qualifiers: Diarrhea type: unspecified type Qualified Code(s): R19.7 - Diarrhea, unspecified (6) IBS (irritable bowel syndrome): Code(s): K58.9 - Irritable bowel syndrome, unspecified Qualifiers: Irritable bowel syndrome type: with both diarrhea and constipation Qualified Code(s): K58.2 - Mixed irritable bowel syndrome (7) Postprandial epigastric pain: Code(s): R10.13 - Epigastric pain (8) Postprandial abdominal pain in right upper quadrant: Code(s): R10.11 - Right upper quadrant pain Plan Patient had HIDA scan done back in 2021, 48% EF of the gallbladder with normal findings should be above 35. We will redo the test again to rule out biliary dyskinesia. Patient reports pain in the right upper quadrant mostly after meals, however she states that the pain lingers there throughout the whole day. Patient denies any nausea or vomiting. Upper endoscopy results discussed with patient. Patient will start taking omeprazole instead of Nexium. Continue famotidine at bedtime. Continue Dulcolax. Patient will follow-up in the office in 3 months, sooner on as needed basis. She is agreeable to this plan and verbalizes understanding of instructions. She was given the opportunity to ask questions and all questions answered. Thank you for allowing me to participate in her care Orders: Orders NM hepatobiliary w pharm Today R10.11 - Right upper quadrant pain Medications: New omeprazole 20 mg PO DAILY 30 caps 3RF Refilled famotidine (Pepcid) 20 mg PO BEDTIME 30 tabs 3RF K21.9 - Gastro-esophageal reflux disease without esophagitis bisacodyl (Dulcolax (bisacodyl)) 10 mg (2 x 5 mg) PO BEDTIME 180 tabs 4RF Coding Level of Care Code Est Pt Level 4 (77596) Complex EM visit Add On G2211 Diagnoses Hepatic steatosis K76.0 Gastroesophageal reflux disease, unspecified whether esophagitis present K21.9 Esophagitis presence: esophagitis presence not specified Chronic idiopathic constipation K59.04 Bloating R14.0 Diarrhea, unspecified type R19.7 Diarrhea type: unspecified type Irritable bowel syndrome with both constipation and diarrhea K58.2 Irritable bowel syndrome type: with both diarrhea and constipation Postprandial epigastric pain R10.13 Postprandial abdominal pain in right upper quadrant R10.11 Time Spent (min) 35 Comment 20 minutes spent with patient and additional 15 minutes spent reviewing her records
== END 2024-02-23 09:13 | disposition home or self-care (01) ==
PROVIDERS: PCP Internal Medicine; Visit Provider Nurse Practitioner Family
DX: K76.0 Fatty (change of) liver, not elsewhere classified (principal); K21.9 Gastro-esophageal reflux disease without esophagitis; K59.04 Chronic idiopathic constipation; R14.0 Abdominal distension (gaseous); R19.7 Diarrhea, unspecified; K58.2 Mixed irritable bowel syndrome; R10.13 Epigastric pain; R10.11 Right upper quadrant pain
CPT/HCPCS: 99214; G2211

== ENCOUNTER → 2024-02-23 08:31 | Outpatient (BNVA) | payer OTHER, SELFPAY | PROVIDERS: PCP Internal Medicine; Visit Provider Nurse Practitioner Family | DX: K76.0 Fatty (change of) liver, not elsewhere classified (principal); K21.9 Gastro-esophageal reflux disease without esophagitis; K59.04 Chronic idiopathic constipation; R14.0 Abdominal distension (gaseous); K58.2 Mixed irritable bowel syndrome; R10.13 Epigastric pain; R10.11 Right upper quadrant pain | CPT/HCPCS: 99212 ==

== ENCOUNTER → 2024-03-13 08:03 | Outpatient (REF) | payer OTHER, SELFPAY ==
--- NOTE | ~2024-03-13 | NM_ITS ---
EXAMINATION: BILIARY TRACT IMAGING STUDY WITH CCK CLINICAL INFORMATION: Right upper quadrant pain.. COMPARISON: The previous study dated 10/06/2021 is available for comparison. Abdominal ultrasound dated 01/11/2024 is available for comparison.. TECHNIQUE: Serial gamma scintillation camera images were obtained over the abdomen for a total observation period of 96 minutes following the intravenous administration of 5 mCi Tc-99m mebrofenin. FINDINGS: There is good concentration of activity in the liver by 5 minutes post injection. Biliary activity is visualized by 15 minutes. The gallbladder is well visualized by 20 minutes. Small bowel is well visualized by 30 minutes. At 75 minutes post radiopharmaceutical injection, a 30-minute infusion of 2.2 micrograms Sincalide was then begun and an additional 40 minutes of images were obtained. There is good emptying of the gallbladder. By the end of the study there is good clearance of activity from the liver and visualization of diffuse small bowel activity. The calculated gallbladder ejection fraction is 83% (normal gallbladder ejection fraction is greater than 35%). NM/NM hepatobiliary w pharm IMPRESSION: Visualization of the gallbladder is evidence of a patent cystic duct and strong evidence against the diagnosis of acute cholecystitis. The common bile duct is patent. Gallbladder emptying and ejection fraction are normal. Liver function appears normal. Electronically signed by: Don Meza MD 03/14/2024 08:46 AM DARLENE
== END ==
LOC: HO.NUCMED 08:03
PROVIDERS: PCP Internal Medicine; Visit Provider Nurse Practitioner Family
DX: R10.11 Right upper quadrant pain (principal)
CPT/HCPCS: 78227; A9537; J2805

== ENCOUNTER 2024-03-20 09:44 | Outpatient (AMB) | payer OTHER, SELFPAY ==
--- NOTE | 2024-03-20 09:46 | A.OFFVIS_ITS ---
Vital Signs 03/20/24 09:47 Height 5 ft 9 in Weight 243 lb 13.3 oz BMI 36.0 BP 134/62 Blood Pressure Location Lt brachial Position Sitting Pulse 84 Pulse Source Pulse Oximeter Pulse Oximetry (%) 97 Oxygen Delivery Method Room Air Intake Visit Reasons: 1 month follow up Intake Note: ESTABLISHED PATIENT Nora presents in office today for a scheduled 1 mos FUV. Meds and Allergies reviewed? Y No recent or relevant surgeries? N Any significant concerns or new changes? Recent US and NM Study. RLQ pain and diarrhea still persistent. Pharmacy verified? [facility] Bill Collector Required: Yes Allergies aspirin [ASPIRIN] Allergy (Severe, Verified 03/20/24 09:46) Anaphylaxis penicillin V Allergy (Severe, Verified 03/20/24 09:46) anaphylaxis Sulfa (Sulfonamide Antibiotics) [SULFA (SULFONAMIDE ANTIBIOTICS)] Allergy (Intermediate, Verified 03/20/24 09:46) RASH sulfacetamide [From Sulfacet-R] Allergy (Intermediate, Verified 03/20/24 09:46) Throat closes sulfur [From Sulfacet-R] Allergy (Intermediate, Verified 03/20/24 09:46) Throat closes peach [PEACH] Allergy (Unknown, Verified 03/20/24 09:46) UNKNOWN banana Allergy (Verified 03/20/24 09:46) Unknown watermelon Allergy (Verified 03/20/24 09:46) Unknown HPI HPI 1 month follow up: Details: LAST VISIT: Hepatic steatosis GERD (gastroesophageal reflux disease) Chronic idiopathic constipation Bloating Diarrhea IBS (irritable bowel syndrome) Postprandial epigastric pain Postprandial abdominal pain in right upper quadrant Plan Patient had HIDA scan done back in 2021, 48% EF of the gallbladder with normal findings should be above 35. We will redo the test again to rule out biliary dyskinesia. Patient reports pain in the right upper quadrant mostly after meals, however she states that the pain lingers there throughout the whole day. Patient denies any nausea or vomiting. Upper endoscopy results discussed with patient. Patient will start taking omeprazole instead of Nexium. Continue famotidine at bedtime. Continue Dulcolax. Patient will follow-up in the office in 3 months, sooner on as needed basis. She is agreeable to this plan and verbalizes understanding of instructions. She was given the opportunity to ask questions and all questions answered. ? Thank you for allowing me to participate in her care Orders Orders NM hepatobiliary w pharm Today R10.11 Medications New omeprazole 20 mg PO DAILY 30 caps 3RF Refilled famotidine (Pepcid) 20 mg PO BEDTIME 30 tabs 3RF K21.9 bisacodyl (Dulcolax (bisacodyl)) 10 mg (2 x 5 mg) PO BEDTIME 180 tabs 4RF TODAY'S VISIT: Patient is here today for follow-up. Patient reports that she started drinking hibiscus tea and she is feeling better. Stopped taking Wegovy few weeks ago and her symptoms of malaise, abdominal pain, cramping has gone away. Patient reports that she is eating food that is low-fat, low-salt. Tries to stay away from carbs. Her goal is to lose weight slowly by choosing better food and also exercise. Patient reports that she was more energy now that she stopped Wegovy patient denies any dyspepsia, dysphagia or odynophagia. Denies melena, hematochezia, unintentional weight loss or ribbon like stools. Patient denies any GI concerning symptoms. She is taking omeprazole in the morning and famotidine at bedtime as needed. Patient also is taking Dulcolax to help her move her bowels. [facility] Medical History Rectal bleeding H. pylori infection Class 2 obesity with body mass index (BMI) of 37.0 to 37.9 in adult Acute diarrhea Low back pain radiating to lower extremity Surgical History Hx of endoscopy History of cervical polypectomy Family History Mother Cervical cancer Father Diabetes mellitus Essential hypertension Social History Housing: Apartment Alcohol intake: never Patient Tobacco Use Status: Never used Tobacco e-Cigarette/Vaping Use: Never Used Second Hand Smoke Exposure: No service: No Current occupational status: employed Current occupational exposures/hazards: No Cognitive needs: No Hearing needs: No Vision needs: Yes Review of Systems Const Denies weight gain and Denies weight loss ENT Reports no additional complaints, Denies dysphagia and Denies odynophagia Card Reports no additional complaints Resp Reports no additional complaints GI Denies abdominal pain, Denies belching, Denies melena, Denies bloating, Denies change in bowel habits, Denies dysphagia, Denies excessive flatus, Denies dyspepsia, Denies heartburn, Denies diarrhea, Denies loose stools, Denies nausea, Denies odynophagia and Denies vomiting Musc Reports no additional complaints Neuro Reports no additional complaints Psych Reports no additional complaints Endo Reports no additional complaints Physical Exam Vital Signs: Last Vital Signs Pulse 84 03/20/24 09:47 BP 134/62 03/20/24 09:47 Pulse Ox 97 03/20/24 09:47 Oxygen Delivery Method Room Air 03/20/24 09:47 BMI result Body Mass Index 36.0 Const General: healthy appearing and no acute distress Nutritional Appearance: obese Orientation/consciousness: patient oriented x3 Resp Effort & Inspection: normal respiratory effort, able to speak in complete sentences, no tracheal deviation and symmetric chest movement Auscultation: clear to auscultation bilaterally Cardio Rate: regular rate GI Inspection: Yes normal to inspection, No distended and Yes obesity Palpation (GI): Soft to palpation, not firm, nontender and No hepatosplenomegaly present Auscultation: normal bowel sounds General: Yes no CVA tenderness Back/Spine/Pelvis Back: no CVA tenderness Skin General skin exam: elasticity normal, turgor normal and dry skin Neuro General: patient oriented x3 Psych Appearance: grossly normal Mental Status: mental status grossly normal Results Reviewed Results Reviewed: HIDA SCAN 03/13/2024 FINDINGS: There is good concentration of activity in the liver by 5 minutes post injection. Biliary activity is visualized by 15 minutes. The gallbladder is well visualized by 20 minutes. Small bowel is well visualized by 30 minutes. At 75 minutes post radiopharmaceutical injection, a 30-minute infusion of 2.2 micrograms Sincalide was then begun and an additional 40 minutes of images were obtained. There is good emptying of the gallbladder. By the end of the study there is good clearance of activity from the liver and visualization of diffuse small bowel activity. The calculated gallbladder ejection fraction is 83% (normal gallbladder ejection fraction is greater than 35%). NM/NM hepatobiliary w pharm IMPRESSION: Visualization of the gallbladder is evidence of a patent cystic duct and strong evidence against the diagnosis of acute cholecystitis. The common bile duct is patent. Gallbladder emptying and ejection fraction are normal. Liver function appears normal. Assessment & Plan Assessment & Plan (1) Hepatic steatosis: Code(s): K76.0 - Fatty (change of) liver, not elsewhere classified Category: Medical (2) GERD (gastroesophageal reflux disease): Code(s): K21.9 - Gastro-esophageal reflux disease without esophagitis Category: Medical Qualifiers: Esophagitis presence: esophagitis presence not specified Qualified Code(s): K21.9 - Gastro-esophageal reflux disease without esophagitis (3) Chronic idiopathic constipation: Code(s): K59.04 - Chronic idiopathic constipation Category: Medical (4) Bloating: Code(s): R14.0 - Abdominal distension (gaseous) Category: Medical (5) Diarrhea: Code(s): R19.7 - Diarrhea, unspecified Category: Medical Qualifiers: Diarrhea type: unspecified type Qualified Code(s): R19.7 - Diarrhea, unspecified (6) IBS (irritable bowel syndrome): Code(s): K58.9 - Irritable bowel syndrome, unspecified Qualifiers: Irritable bowel syndrome type: without diarrhea Qualified Code(s): K58.9 - Irritable bowel syndrome, unspecified (7) Postprandial epigastric pain: Code(s): R10.13 - Epigastric pain (8) Postprandial abdominal pain in right upper quadrant: Code(s): R10.11 - Right upper quadrant pain Plan Continue omeprazole in the morning and can use famotidine at bedtime as needed. Continue avoiding dietary triggers and late night snacking. Staying upright for minimum 3 hours after meals discussed with patient. Continue low-fat, low salt, low carb, high-protein diet. Low FODMAP diet to avoid bloating. Normal HIDA scan discussed with patient. Patient had normal liver enzymes, will repeated in 6 months. Follow-up in 6 months, sooner on as needed basis. Patient is agreeable to plan of care and verbalizes understanding of instructions. She was given the opportunity to ask questions and all questions answered. Thank you for allowing me to participate in her care Coding Level of Care Code Est Pt Level 3 (20519) Diagnoses Hepatic steatosis K76.0 Gastroesophageal reflux disease, unspecified whether esophagitis present K21.9 Esophagitis presence: esophagitis presence not specified Chronic idiopathic constipation K59.04 Bloating R14.0 Diarrhea, unspecified type R19.7 Diarrhea type: unspecified type Irritable bowel syndrome without diarrhea K58.9 Irritable bowel syndrome type: without diarrhea Postprandial epigastric pain R10.13 Postprandial abdominal pain in right upper quadrant R10.11 Time Spent (min) 25 Comment 15 minutes spent with patient and additional 10 minutes spent reviewing her records
[2024-03-20 09:47] VITALS: BP 134/62; PULSE 84; O2SAT 97; BMI 36.0
== END 2024-03-20 10:03 | disposition home or self-care (01) ==
PROVIDERS: PCP Internal Medicine; Visit Provider Nurse Practitioner Family
DX: K76.0 Fatty (change of) liver, not elsewhere classified (principal); K21.9 Gastro-esophageal reflux disease without esophagitis; K59.04 Chronic idiopathic constipation; R14.0 Abdominal distension (gaseous); R19.7 Diarrhea, unspecified; K58.9 Irritable bowel syndrome, unspecified; R10.13 Epigastric pain; R10.11 Right upper quadrant pain
CPT/HCPCS: 99213

== ENCOUNTER → 2024-03-20 09:44 | Outpatient (BNVA) | payer OTHER, SELFPAY | PROVIDERS: PCP Internal Medicine; Visit Provider Nurse Practitioner Family | DX: K76.0 Fatty (change of) liver, not elsewhere classified (principal); K21.9 Gastro-esophageal reflux disease without esophagitis; K59.04 Chronic idiopathic constipation; R14.0 Abdominal distension (gaseous); K58.0 Irritable bowel syndrome with diarrhea; R10.13 Epigastric pain; R10.11 Right upper quadrant pain | CPT/HCPCS: 99212 ==

== ENCOUNTER 2024-06-27 16:59 | Emergency (ER) | payer OTHER, SELFPAY ==
--- NOTE | ~2024-06-27 | US_ITS ---
CLINICAL HISTORY: right upper quadrant pain US abdomen limited. COMPARISON: US abdomen dated 01/11/24 at 08:58 EDT Technique: Real time sonographic imaging, including color-flow imaging, was performed by the yardage control operator. Multiple veterans contact representative static images were saved for review. FINDINGS: The gallbladder is normal in size. No cholelithiasis or sludge identified. There is a negative sonographic Villafuerte's sign. Gallbladder wall: 1-2 mm, normal. Common bile duct: 3 mm, normal. No free intraperitoneal fluid identified. IMPRESSION: 1. No evidence of cholecystitis. This document has been electronically signed by: Obey [place] MD on 06/27/2024 17:56:24
[2024-06-27 17:10] VITALS: BP 143/79; PULSE 83; RESP 18; TEMP 36.6; O2SAT 98; BMI 34.0
--- NOTE | 2024-06-27 17:11 | ED_ITS ---
HPI - General Adult General Chief complaint: General Medical Stated complaint: Dizziness/Head pressure Time Seen by Provider: 06/27/24 19:02 History of Present Illness ED Provider: Betina PAYTON narrative: The patient is a 39-year-old female who tells me that she has had a headache for 5 days. This has been associated with dizziness and nausea. She says that she has had headaches like this before. 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 She does not have any photophobia. The patient also reports that she had some abdominal pain and she also reports that she had a syncopal episode yesterday without injury. Related Data Previous Rx's ?Medication ?Instructions ?Recorded methylcellulose (laxative) 500 mg 500 mg PO BID #180 tabs 09/08/21 tablet (Citrucel) meclizine 12.5 mg tablet 12.5 mg PO TID PRN dizziness #10 11/15/22 tabs blood pressure monitor (Blood #1 ea 12/10/22 Pressure Kit) fluticasone propionate 50 2 spray intranasal DAILY #16 grams 04/11/23 mcg/actuation nasal spray,suspension amitriptyline 25 mg tablet 25 mg PO BEDTIME #30 tabs 08/09/23 topiramate 50 mg tablet 50 mg PO BEDTIME 30 days #30 tabs 08/12/23 compression stockings 40 mmHg #1 ea 08/20/23 spironolactone 25 mg tablet 25 mg PO DAILY 90 days #90 tabs 11/03/23 ondansetron 8 mg disintegrating 8 mg PO Q12H PRN nausea and 12/15/23 tablet vomiting 10 days #20 tabs simethicone 125 mg capsule (Gas 125 mg PO TID-QID PRN abdominal 12/20/23 Relief (simethicone)) distention #120 caps vitamin E (dl, acetate) 180 mg 180 mg PO DAILY 90 days #90 caps 12/28/23 (400 unit) capsule diclofenac sodium 1 % topical gel 2 g topical QID 30 days #100 grams 02/15/24 (Arthritis Pain (diclofenac)) bisacodyl 5 mg tablet,delayed 10 mg (2 x 5 mg) PO BEDTIME #180 02/23/24 release (Dulcolax (bisacodyl)) tabs famotidine 20 mg tablet (Pepcid) 20 mg PO BEDTIME #30 tabs 02/23/24 omeprazole 20 mg capsule,delayed 20 mg PO DAILY #30 caps 02/23/24 release docusate sodium 100 mg capsule 100 mg PO BEDTIME #90 caps 04/10/24 ibuprofen 800 mg tablet 800 mg PO Q8H PRN pain 30 days #90 05/18/24 tabs triamcinolone acetonide 0.1 % 1 appl topical BID 2 weeks #80 05/18/24 topical cream grams albuterol sulfate 2.5 mg/3 mL 2.5 mg (3 mL) inhalation Q4-6H PRN 06/05/24 (0.083 %) solution for nebulization shortness of breath or wheezing #90 mL Ventolin HFA 90 mcg/actuation 2 puff inhalation Q6H PRN 06/08/24 aerosol inhaler (albuterol sulfate) shortness of breath or wheezing 30 days #8 grams acetaminophen 500 mg capsule 1,000 mg (2 x 500 mg) PO Q8H PRN 06/27/24 fever or pain #14 caps naproxen 500 mg tablet 500 mg PO BID PRN pain #14 tabs 06/27/24 ondansetron 4 mg disintegrating 4 mg PO Q6H PRN nausea and 06/27/24 tablet vomiting #10 tabs Allergies Allergy/AdvReac Type Severity Reaction Status Date / Time aspirin [ASPIRIN] Allergy Severe Anaphylaxis Verified 06/27/24 17:13 penicillin V Allergy Severe anaphylaxis Verified 06/27/24 17:13 Sulfa (Sulfonamide Allergy Intermediate RASH Verified 06/27/24 17:13 Antibiotics) [SULFA (SULFONAMIDE ANTIBIOTICS)] sulfacetamide Allergy Intermediate Throat Verified 06/27/24 17:13 [From Sulfacet-R] closes sulfur [From Sulfacet-R] Allergy Intermediate Throat Verified 06/27/24 17:13 closes peach [PEACH] Allergy Unknown UNKNOWN Verified 06/27/24 17:13 banana Allergy Unknown Verified 06/27/24 17:13 watermelon Allergy Unknown Verified 06/27/24 17:13 Review of Systems 2 Review of Systems: Yes all other systems are reviewed and are negative PMFSH Past Medical History Medical History Rectal bleeding H. pylori infection Class 2 obesity with body mass index (BMI) of 37.0 to 37.9 in adult Acute diarrhea Low back pain radiating to lower extremity Surgical History Hx of endoscopy History of cervical polypectomy Family History Family History Mother Cervical cancer Father Diabetes mellitus Essential hypertension Social History Social History Housing: Apartment Alcohol intake: never Patient Tobacco Use Status: Never used Tobacco e-Cigarette/Vaping Use: Never Used Second Hand Smoke Exposure: No Advance Directives: No Advance Directives Information Provided: No Do you have a plan to hurt others: No Plan Patient : No service: No Current occupational status: employed Current occupational exposures/hazards: No Cognitive needs: No Hearing needs: No Vision needs: Yes Physical Exam ED Vital Signs: Vital Signs - 24 hr 06/27/24 17:10 06/27/24 20:08 06/27/24 22:00 Temperature 98 F 98.5 F 98.4 F Pulse Rate 83 67 72 Respiratory Rate 18 16 16 Blood Pressure 143/79 H 136/78 127/72 Pulse Oximetry 98 99 99 Oxygen Delivery Method Room Air Room Air BMI result Body Mass Index 34.0 Const Other: The patient was awake, alert, pleasant, cooperative. She did not appear in acute distress. HENMT Other: Face is symmetrical. Mucous membranes moist. Eyes General: appearance normal, both eyes and all related structures Eyelids: Yes eyelids normal Conjunctivae: conjunctivae normal Pupils: Equal, round and reactive pupils present EOM: EOMs intact bilaterally Neck Other: No cervical adenopathy. The neck is supple. Resp Effort & Inspection: normal respiratory effort Auscultation: clear to auscultation bilaterally Cardio Rate: regular rate Rhythm: regular rhythm Heart sounds: S1 normal heart sound present and S2 normal heart sound present GI Other: At the time that I examined the patient the patient's abdomen seemed without significant tenderness. Skin Other: Skin is dry and unremarkable Neuro Other: The patient was awake and alert with a normal mental status. Cranial nerves 2- 12 are grossly intact. She has a supple neck. She moves her extremities normally. She has a steady gait. Cranial nerves: Yes Equal, round and reactive pupils present Extrem Other: No peripheral edema Course Course Course Narrative: RME, this is a rapid medical exam performed by Timothy Langley please refer to primary provider for complete H&P- 39-year-old female presents for evaluation of dizziness for the last 5 days. She reports that she had a syncopal episode yesterday. She also endorses right upper quadrant abdominal pain. Plan for labs, gallbladder ultrasound, urinalysis and testing. Medications Administered Discontinued Medications Generic Name Dose Route Start Last Admin Trade Name Sofi PRN Reason Stop Dose Admin Acetaminophen 975 mg 06/27/24 21:43 06/27/24 21:58 Acetaminophen 325 Mg Tablet PO 06/27/24 21:44 975 mg ONCE ONE Administration Ketorolac Tromethamine 30 mg 06/27/24 19:13 06/27/24 20:02 Ketorolac Tromethamine 30 Mg/Ml Vial IM 06/27/24 19:14 30 mg ONCE ONE Administration Ondansetron HCl 4 mg 06/27/24 19:10 06/27/24 20:01 Ondansetron Hcl 4 Mg/2 Ml Vial IM 06/27/24 19:11 4 mg ONCE ONE Administration Medical Decision Making Medical Decision Making MDM Narrative: The patient is a 39-year-old female. At triage she complained of a headache and nausea and also abdominal pain and dizziness and an episode of syncope yesterday. When I spoke to her she focused mostly on the headache which she said she had had for 5 days and which she said was similar to previous headaches. She had unremarkable laboratory testing including a CBC, comprehensive metabolic panel, and lipase. Negative test. An abdominal ultrasound ordered at triage showed an unremarkable gallbladder with no cholelithiasis or sludge. The patient was treated symptomatically for her headache with ketorolac and ondansetron IM. She said that she felt considerably better. Strangely she seemed to have some photophobia at that time although she had initially denied photophobia. In any event she felt well enough to go home to sleep at home. She was given a work note. She should follow up with her PCP or return to the ER if worse. Lab Data 06/27/24 17:26 06/27/24 17:26 Labs: Lab Results 06/27/24 Range/Units 17:26 WBC 6.9 (4.8-10.8) X10*3/uL RBC 4.40 (4.20-5.50) X10*6/uL Hgb 12.4 (12.0-16.0) g/dl Hct 36.7 L (37.0-47.0) % MCV 83.4 (80.0-98.0) fL MCH 28.2 (27.0-33.0) pg MCHC 33.8 (31.0-35.0) g/dl RDW 13.1 (11.0-16.0) % Plt Count 226 (160-400) X10*3/uL MPV 11.0 (9.4-12.3) fL Immature Gran % (Auto) 0.4 (0.0-0.4) % Neut % (Auto) 61.4 (45-73) % Lymph % (Auto) 29.9 (20-40) % Liberty % (Auto) 5.7 (2-11) % Eos % (Auto) 2.3 (0-4) % Baso % (Auto) 0.3 (0-2) % Lymph # (Auto) 2.1 (1.2-4.9) X10*3/uL Liberty # (Auto) 0.4 (0.1-1.2) X10*3/uL Eos # (Auto) 0.2 (0.0-0.4) X10*3/uL Baso # (Auto) 0.0 (0.0-0.2) X10*3/uL Abs Immat Gran (auto) 0.03 (0.00-0.03) X10*3/uL Absolute Neuts (auto) 4.2 (2.0-8.3) x10*3/uL Absolute Nucleated RBC 0.000 (0.0-0.012) X10*3/uL Nucleated RBC % (auto) 0.0 (0.0-0.2) /100WBC Sodium 140 (135-145) mmol/L Potassium 3.6 (3.3-5.1) mmol/L Chloride 109 H (96-108) mmol/L Carbon Dioxide 25 (22-29) mmol/L Anion Gap 10 L (12-20) BUN 16 (9-16) mg/dL Creatinine 0.75 (0.5-1.4) mg/dL Estim Creat Clear Calc 132.0 Estimated GFR > 60 Random Glucose 135 H (60-115) mg/dL Calcium 8.9 (8.4-10.2) mg/dL Total Bilirubin 0.2 (0.0-1.0) mg/dL AST 25 (5-31) U/L ALT 29 (0-31) U/L Alkaline Phosphatase 55 (39-117) U/L Troponin I High Sens 2.8 (<3.5-17.0) ng/L Total Protein 7.4 (6.5-8.0) g/dL Albumin 4.2 (3.5-5.0) g/dL Lipase 24 (8-78) U/L Beta HCG, Quant < 2 mIU/mL Influenza Type A (PCR) NEGATIVE (Negative) Influenza Type B (PCR) NEGATIVE (Negative) RSV RNA Qual (PCR) NEGATIVE (Negative) SARS-CoV-2 RNA (RT-PCR) NEGATIVE (Negative) Discharge Plan Discharge Clinical Impression: Migraine headache Qualifiers: Migraine type: without aura Status migrainosus presence: without status migrainosus Intractability: not intractable Qualified Code(s): G43.009 - Migraine without aura, not intractable, without status migrainosus Patient Disposition: Home, Self-Care Instructions: Migraine Headache (ED) Additional Instructions: I believe you are having a migraine headache. Your testing in the emergency room today is unremarkable. Please plan on resting and taking it easy tomorrow. Drink lot of fluids. Use acetaminophen and naproxen as needed for any ongoing headache. Use ondansetron as needed for any ongoing nausea. My hope is that you will be feeling significantly better by and can return to work. Follow up with your regular doctor in the next couple of weeks to discuss your headaches. Return to the emergency room if significantly worse. Prescriptions: New acetaminophen 500 mg capsule 1,000 mg PO Q8H PRN (Reason: fever or pain) Qty: 14 0RF naproxen 500 mg tablet 500 mg PO BID PRN (Reason: pain) Qty: 14 0RF ondansetron 4 mg tablet,disintegrating 4 mg PO Q6H PRN (Reason: nausea and vomiting) Qty: 10 0RF No Action (DME) blood pressure monitor [Blood Pressure Kit] Kit See Rx Instructions .Route Qty: 1 0RF Rx Instructions: As directed fluticasone propionate 50 mcg/actuation spray,suspension 2 spray intranasal DAILY Qty: 16 5RF (DME) compression stockings 40 mmHg knee high See Rx Instructions .Route .MEDSUPPLY Qty: 1 0RF Rx Instructions: As directed spironolactone 25 mg tablet 25 mg PO DAILY 90 Days Qty: 90 0RF ondansetron 8 mg tablet,disintegrating 8 mg PO Q12H PRN (Reason: nausea and vomiting) 10 Days Qty: 20 0RF docusate sodium 100 mg capsule 100 mg PO BEDTIME Qty: 90 1RF ibuprofen 800 mg tablet 800 mg PO Q8H PRN (Reason: pain) 30 Days Qty: 90 0RF triamcinolone acetonide 0.1 % cream 1 appl topical BID 14 Days Qty: 80 0RF Rx Instructions: Place on ingrown toenail and inflamed area albuterol sulfate 2.5 mg /3 mL (0.083 %) solution for nebulization 2.5 mg inhalation Q4-6H PRN (Reason: shortness of breath or wheezing) Qty: 90 0RF albuterol sulfate [Ventolin HFA] 90 mcg/actuation HFA aerosol inhaler 2 puff inhalation Q6H PRN (Reason: shortness of breath or wheezing) 30 Days Qty: 8 1RF meclizine 12.5 mg tablet 12.5 mg PO TID PRN (Reason: dizziness) Qty: 10 0RF amitriptyline 25 mg tablet 25 mg PO BEDTIME Qty: 30 0RF topiramate 50 mg tablet 50 mg PO BEDTIME 30 Days Qty: 30 6RF Citrucel 500 mg tablet 500 mg PO BID Qty: 180 2RF simethicone [Gas Relief (simethicone)] 125 mg capsule 125 mg PO TID-QID PRN (Reason: abdominal distention) Qty: 120 2RF vitamin E (dl, acetate) 180 mg (400 unit) capsule 180 mg PO DAILY 90 Days Qty: 90 1RF omeprazole 20 mg capsule,delayed release(DR/EC) 20 mg PO DAILY Qty: 30 3RF famotidine [Pepcid] 20 mg tablet 20 mg PO BEDTIME Qty: 30 3RF bisacodyl [Dulcolax (bisacodyl)] 5 mg tablet,delayed release (DR/EC) 10 mg PO BEDTIME Qty: 180 4RF diclofenac sodium [Arthritis Pain (diclofenac)] 1 % gel 2 g topical QID 30 Days Qty: 100 0RF Rx Instructions: apply to single elbow, wrist or hand; for hand includes palm/fingers/back of hand Referrals: Lyndsay Ballard MD [Primary Care Provider] - (Migraine headache) Stand Alone Forms: Work/School Release Interventions: ED Discharge Assessment Last Done: 06/27/24 22:00 Discharge Date/Time: 06/27/24 22:01 Print Language: Nauruan
--- NOTE | 2024-06-27 17:13 | ECG_ITS ---
Test Reason : CP Blood Pressure : */* mmHG Vent. Rate : 83 BPM Atrial Rate : 83 BPM P-R Int : 160 ms QRS Dur : 80 ms QT Int : 362 ms P-R-T Axes : 59 26 30 degrees QTcB Int : 425 ms Normal sinus rhythm Normal ECG When compared with ECG of 17-Nov-2022 13:53, No significant change was found Referred By: Chato Langley Electronically Signed By: Denzel Moses
[2024-06-27 17:32] LABS: Basophils Percent Auto 0.3 % (0-2); Eosinophils Absolute Auto 0.2 X10*3/uL (0.0-0.4); Eosinophils Percent Auto 2.3 % (0-4); Hematocrit 36.7 % (37.0-47.0); Hemoglobin 12.4 g/dl (12.0-16.0); Imm Gran Abs Auto 0.03 X10*3/uL (0.00-0.03); Imm Gran Pct Auto 0.4 % (0.0-0.4); Lymphocytes Absolute Auto 2.1 X10*3/uL (1.2-4.9); Lymphocytes Percent Auto 29.9 % (20-40); MANUAL DIFF FLAG NO; Mean Corpuscular HGB Conc 33.8 g/dl (31.0-35.0); Mean Corpuscular Hemoglobin 28.2 pg (27.0-33.0); Mean Corpuscular Volume 83.4 fL (80.0-98.0); Monocytes Absolute Auto 0.4 X10*3/uL (0.1-1.2); Monocytes Percent Auto 5.7 % (2-11); Neutrophils Absolute Auto 4.2 x10*3/uL (2.0-8.3); Neutrophils Percent Auto 61.4 % (45-73); Platelet Count 226 X10*3/uL (160-400); Red Cell Distribution Width 13.1 % (11.0-16.0); White Blood Count 6.9 X10*3/uL (4.8-10.8)
[2024-06-27 17:52] LABS: Alanine Aminotransferase 29 U/L (0-31); Albumin Level 4.2 g/dL (3.5-5.0); Alkaline Phosphatase 55 U/L (39-117); Anion Gap 10 (12-20); Aspartate Amino Transferase 25 U/L (5-31); Bilirubin Total 0.2 mg/dL (0.0-1.0); Blood Urea Nitrogen 16 mg/dL (9-16); Calcium 8.9 mg/dL (8.4-10.2); Carbon Dioxide 25 mmol/L (22-29); Chloride 109 mmol/L (96-108); Estimated Glomerular Filt Rate > 60; Glucose Random 135 mg/dL (60-115); Lipase 24 U/L (8-78); Potassium 3.6 mmol/L (3.3-5.1); Sodium 140 mmol/L (135-145); Total Protein 7.4 g/dL (6.5-8.0)
[2024-06-27 17:59] LABS: Troponin-I High Sensitivity 2.8 ng/L (<3.5-17.0)
[2024-06-27 18:10] LABS: HCG Quantitative < 2 mIU/mL; Influenza A PCR NEGATIVE (Negative); Influenza B PCR NEGATIVE (Negative); Resp Syncy Virus RNA Qual PCR NEGATIVE (Negative); SARS COV2 PCR INHOUSE NEGATIVE (Negative)
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
[2024-06-27] MEDS: ondansetron HCL 4 MG/2 ML VIAL IM (20:01)
[2024-06-27] MEDS: Ketorolac Tromethamine 30 MG/ML VIAL IM (20:02)
[2024-06-27 20:08] VITALS: BP 136/78; PULSE 67; RESP 16; TEMP 36.9; O2SAT 99
[2024-06-27] MEDS: Acetaminophen 325 MG TABLET 975 MG PO (21:58)
[2024-06-27 22:00] VITALS: BP 127/72; PULSE 72; RESP 16; TEMP 36.9; O2SAT 99
== END 2024-06-27 22:01 | disposition home or self-care (01) ==
PROVIDERS: Physician Assistant; Emergency Provider Emergency Medicine; PCP Internal Medicine
DX: G43.909 Migraine, unspecified, not intractable, without status migrainosus (principal); Z03.818 Encounter for observation for suspected exposure to other biological agents ruled out; J45.909 Unspecified asthma, uncomplicated
CPT/HCPCS: 0241U; 36415; 76705; 80053; 83690; 84484; 84702; 85025; 93005; 96372; 99284; J1885; J2405

== ENCOUNTER → 2024-06-27 17:12 | Outpatient (BNV) | payer OTHER, SELFPAY | PROVIDERS: PCP Internal Medicine; Visit Provider Radiology Diagnostic Radiology | DX: R10.11 Right upper quadrant pain (principal) | CPT/HCPCS: 76705 ==

== ENCOUNTER → 2024-06-27 17:13 | Outpatient (BNV) | payer OTHER, SELFPAY | PROVIDERS: Emergency Provider Emergency Medicine; PCP Internal Medicine; Visit Provider Internal Medicine Cardiovascular Disease | DX: R07.9 Chest pain, unspecified (principal) | CPT/HCPCS: 93010 ==

== ENCOUNTER 2024-07-12 11:11 | Outpatient (REF) | payer OTHER, SELFPAY ==
[2024-07-12 12:44] LABS: Thyroid Stimulating Hormone 1.26 uIU/mL (0.32-4.0)
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
--- OUTSIDE RECORDS SUMMARY | 2024-07-12 13:30 | XMS_ITS | Encounter Summary ---
Author Organization [facility] Address [address] [place] [address] Care Team Providers Care Chute Greaser Name Role Phone Lyndsay Peñaloza MD Primary Care Provider [phone] Reason for Visit * Reason Onset Date Comments Lab Results 07/10/2024 Encounter Details Date Type Department Care Team ([facility] Contact Info) Description 07/10/2024 Telephone Obstetrics & Gynecology - [address] [phone] Katja Venegas, [address] [address] Lab Results Social History Tobacco Use Types Packs/Day Years [...] file Not on file Not on file documented as of this encounter Progress Notes * Fanny Long - 07/10/2024 10:28 AM EDT P calling requestig callback with lab results form 06/26/24 (hormone levels). Pls advise documented in this encounter Plan of Treatment Upcoming Encounters Date Type Department Care Team (Late st Contact Info) Description 07/12/2024 3:30 PM EDT Appointment [facility] [address] [place] [phone] 09/05/2024 3:00 PM EDT Consult Orthopedic Surgery - [place] [address] [phone] Leodan Whtie, DPGrisel [address] [address] documented as of this encounter Visit Diagnoses Not on filedocumented in this encounter Care Teams Chute Greaser Relationship Specialty Start Date End Date Lyndsay Peñaloza MD 2 [facility] , [address] Physician Associ D/B/A: [facility] [place], [place] PCP - General 10/18/20 documented as of this encounter
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
== END 2024-07-12 11:12 | disposition home or self-care (01) ==
LOC: HO.LAB 11:11
PROVIDERS: PCP Internal Medicine; Visit Provider Internal Medicine
DX: L65.9 Nonscarring hair loss, unspecified (principal)
CPT/HCPCS: 36415; 84443

== ENCOUNTER 2024-09-18 14:54 | Outpatient (AMB) | payer OTHER, SELFPAY ==
--- NOTE | 2024-09-18 14:56 | MHC.OFFVIS ---
Vital Signs 09/18/24 15:01 Height 5 ft 9 in Weight 253 lb 8.505 oz BMI 37.4 BP 118/64 Blood Pressure Location Rt brachial Position Sitting Pulse 78 Pulse Source Pulse Oximeter Pulse Oximetry (%) 96 Oxygen Delivery Method Room Air Intake Visit Reasons: 6 mo f/u Intake Note: ESTABLISHED PATIENT for GERD mgmt. CC; Pt denies any new sx or concerns at this time. Pt does report some very occasional RUQ pain but states that it is greatly improved since last visit. Pt also requests refill of zofran at this time. Client Coordinator Required: No Accompanied by: Self / Same As Patient Allergies aspirin (ASPIRIN) Allergy (Severe, Verified 09/18/24 14:59) Anaphylaxis penicillin V Allergy (Severe, Verified 09/18/24 14:59) anaphylaxis Sulfa (Sulfonamide Antibiotics) (SULFA (SULFONAMIDE ANTIBIOTICS)) Allergy (Intermediate, Verified 09/18/24 14:59) RASH sulfacetamide (From Sulfacet-R) Allergy (Intermediate, Verified 09/18/24 14:59) Throat closes sulfur (From Sulfacet-R) Allergy (Intermediate, Verified 09/18/24 14:59) Throat closes peach (PEACH) Allergy (Unknown, Verified 09/18/24 14:59) UNKNOWN banana Allergy (Verified 09/18/24 14:59) Unknown watermelon Allergy (Verified 09/18/24 14:59) Unknown HPI HPI 6 mo f/u: Details: LAST VISIT: Hepatic steatosis GERD (gastroesophageal reflux disease) Chronic idiopathic constipation Bloating Diarrhea IBS (irritable bowel syndrome) Postprandial epigastric pain Postprandial abdominal pain in right upper quadrant Plan Continue omeprazole in the morning and can use famotidine at bedtime as needed. Continue avoiding dietary triggers and late night snacking. Staying upright for minimum 3 hours after meals discussed with patient. Continue low-fat, low salt, low carb, high-protein diet. Low FODMAP diet to avoid bloating. Normal HIDA scan discussed with patient. Patient had normal liver enzymes, will repeated in 6 months. Follow-up in 6 months, sooner on as needed basis. Patient is agreeable to plan of care and verbalizes understanding of instructions. She was given the opportunity to ask questions and all questions answered. TODAY'S VISIT Patient is here today for follow-up. Patient reports that she has been feeling better since last visit. Patient is reporting that she no longer is taking any GLP1 as he was not feeling well when taking it. Her PCP wants to start her on GLP1 and patient is refusing. Patient reports that she was having abdominal pain. Currently patient is feeling much better. Occasional right upper quadrant pain with previously negative ultrasound and HIDA scan. Patient reports that she is moving her bowels better now that she is taking Dulcolax. Patient currently is taking famotidine at bedtime and omeprazole in the morning and her symptoms of acid reflux are suppressed. Patient denies dyspepsia, dysphagia or odynophagia. She has not changed her diet much. Patient is interested in losing weight. Currently her liver enzymes are normal. Liver elastography in the past ruled out chronic advanced liver disease. ? [facility] Medical History Rectal bleeding H. pylori infection Class 2 obesity with body mass index (BMI) of 37.0 to 37.9 in adult Acute diarrhea Low back pain radiating to lower extremity Surgical History Hx of endoscopy History of cervical polypectomy Family History Mother Cervical cancer Father Diabetes mellitus Essential hypertension Social History Housing: Apartment Alcohol intake: never Patient Tobacco Use Status: Never used Tobacco e-Cigarette/Vaping Use: Never Used Second Hand Smoke Exposure: No service: No Current occupational status: employed Current occupational exposures/hazards: No Cognitive needs: No Hearing needs: No Vision needs: Yes Review of Systems Const Denies weight gain and Denies weight loss ENT Reports no additional complaints, Denies dysphagia and Denies odynophagia Card Reports no additional complaints Resp Reports no additional complaints GI Reports abdominal pain (RUQ), Denies belching, Denies melena, Denies bloating, Denies change in bowel habits, Denies dysphagia, Denies excessive flatus, Denies dyspepsia, Denies heartburn, Denies diarrhea, Denies loose stools, Reports nausea (Occasional), Denies odynophagia and Denies vomiting Reports no additional complaints Musc Reports no additional complaints Neuro Reports no additional complaints Psych Reports no additional complaints Endo Reports no additional complaints Physical Exam Vital Signs: Last Vital Signs Pulse 78 09/18/24 15:01 BP 118/64 09/18/24 15:01 Pulse Ox 96 09/18/24 15:01 Oxygen Delivery Method Room Air 09/18/24 15:01 BMI result Body Mass Index 37.4 Const General: healthy appearing and no acute distress Nutritional Appearance: obese Orientation/consciousness: patient oriented x3 Resp Effort & Inspection: normal respiratory effort, able to speak in complete sentences, no tracheal deviation and symmetric chest movement Auscultation: clear to auscultation bilaterally Cardio Rate: regular rate GI Inspection: Yes normal to inspection, No distended and Yes obesity Palpation (GI): Soft to palpation, not firm, nontender and No hepatosplenomegaly present Auscultation: normal bowel sounds General: Yes no CVA tenderness Back/Spine/Pelvis Back: no CVA tenderness Skin General skin exam: elasticity normal, turgor normal and dry skin Neuro General: patient oriented x3 Psych Appearance: grossly normal Mental Status: mental status grossly normal Assessment & Plan Assessment & Plan (1) GERD (gastroesophageal reflux disease): Code(s): K21.9 - Gastro-esophageal reflux disease without esophagitis Category: Medical Qualifiers: Esophagitis presence: esophagitis presence not specified Qualified Code(s): K21.9 - Gastro-esophageal reflux disease without esophagitis (2) Hepatic steatosis: Code(s): K76.0 - Fatty (change of) liver, not elsewhere classified Category: Medical (3) Chronic idiopathic constipation: Code(s): K59.04 - Chronic idiopathic constipation Category: Medical (4) Bloating: Code(s): R14.0 - Abdominal distension (gaseous) Category: Medical Plan Patient will continue taking Dulcolax daily. Simethicone as needed. Discussed with patient avoiding dietary triggers and late night snacking. Staying upright for minimum 3 hours after meals discussed with patient. Patient was encouraged to follow low FODMAP diet. Patient will try to take berberine to see if will help with appetite cravings as she does not want to take GLP 1 continue omeprazole in the morning and famotidine at bedtime. Will check liver fibrosis panel. Follow-up in 3-4 months, sooner on as needed basis. She is agreeable to this plan and verbalizes understanding of instructions. She was given the opportunity to ask questions and all questions answered. Thank you for allowing me to participate in her care Orders: Orders Liver Fibrosis Pnl Today K76.0 - Fatty (change of) liver, not elsewhere classified Medications: Refilled bisacodyl (Dulcolax (bisacodyl)) 10 mg (2 x 5 mg) PO BEDTIME 180 tabs 4RF simethicone (Gas Relief (simethicone)) 125 mg PO TID-QID PRN 120 caps 2RF abdominal distention R14.0 - Abdominal distension (gaseous) ondansetron 4 mg PO Q6H PRN 10 tabs 0RF nausea and vomiting Discontinued methylcellulose (laxative) (Citrucel) Discontinued Reason: Patient no longer taking 500 mg PO BID 180 tabs 2RF K59.00 - Constipation, unspecified Coding Level of Care Code Est Pt Level 4 (48223) Complex EM visit Add On G2211 Diagnoses Gastroesophageal reflux disease, unspecified whether esophagitis present K21.9 Esophagitis presence: esophagitis presence not specified Hepatic steatosis K76.0 Chronic idiopathic constipation K59.04 Bloating R14.0 Time Spent (min) 35 Comment 25 minutes spent with patient and additional 10 minutes spent reviewing her records
[2024-09-18 15:01] VITALS: BP 118/64; PULSE 78; O2SAT 96; BMI 37.4
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
== END 2024-09-18 15:30 | disposition home or self-care (01) ==
LOC: HO.HGI 14:55
PROVIDERS: PCP Internal Medicine; Visit Provider Nurse Practitioner Family
DX: K21.9 Gastro-esophageal reflux disease without esophagitis (principal); K76.0 Fatty (change of) liver, not elsewhere classified; K59.04 Chronic idiopathic constipation; R14.0 Abdominal distension (gaseous)
CPT/HCPCS: 99214; G2211

== ENCOUNTER → 2024-09-18 14:54 | Outpatient (BNVA) | payer OTHER, SELFPAY | PROVIDERS: PCP Internal Medicine; Visit Provider Nurse Practitioner Family | DX: K21.9 Gastro-esophageal reflux disease without esophagitis (principal); K76.0 Fatty (change of) liver, not elsewhere classified; K59.04 Chronic idiopathic constipation; R14.0 Abdominal distension (gaseous) | CPT/HCPCS: 99212 ==

== ENCOUNTER 2024-10-04 15:32 | Outpatient (REF) | payer OTHER, SELFPAY ==
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
[2024-10-11 03:33] LABS: FIB-ALT 29 U/L (6-29); FIB-Alpha-2-Macroglobulin 129 mg/dL (106-279); FIB-Apolipoprotein A1 147 mg/dL (101-198); FIB-GGT 26 U/L (3-50); FIB-Haptoglobin 192 mg/dL (43-212); FIB-Total Bilirubin 0.3 mg/dL (0.2-1.2); Liver Fibrosis Score 0.03; Liver Fibrosis Stage F0; Nec Inflam Act Grade A0; Nec Inflam Act Score 0.10
== END 2024-10-04 15:33 | disposition home or self-care (01) ==
LOC: HO.LAB 15:32
PROVIDERS: PCP Internal Medicine; Visit Provider Nurse Practitioner Family
DX: K76.0 Fatty (change of) liver, not elsewhere classified (principal)
CPT/HCPCS: 36415; 81596

== ENCOUNTER 2024-12-18 15:49 | Outpatient (AMB) | payer OTHER, SELFPAY ==
--- OUTSIDE RECORDS SUMMARY | 2024-12-13 15:30 | XMS_ITS | Encounter Summary ---
Author Organization [facility] Address [address] [place] [address] Care Team Providers Care Lesson Instructor Name Role Phone Lyndsay Peñaloza MD Primary Care Provider [phone] Reason for Visit * Consultation (Routine) - Authorized Specialty Diagnoses / Procedures Referred By Penelope borrego Referred To Contact Physical Therapy Diagnoses Tendonitis, Achilles, left Leodan White, DPM [address] [facility] [address] [place] [address] Phone: tel: fax: Referral ID Status Reason Start Date Expiration Date Visits Requested Visits Authorized [id number] Authorized Specialty Services Required 10/16/2024 10/16/2025 21 21 Encounter Details Date Type Department Care Team ([facility] st Contact Info) Description 12/13/2024 3:30 PM EDT Treatment [facility] [address] [facility] [address] [place] [address] Sandra Hdez, PT Tendonitis, Achilles, left (Primary Dx) Social History Tobacco Use Types Packs/Day Years [...] for your loved ones. 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 [...] Date Recorded What is your living situation? Unrecognized valu e 08/31/2024 Comments No Sex and Gender Information [...] as of this encounter Progress Notes * Sandra Hdez PT - 12/13/2024 3:30 PM EDT [facility] - Outpatient PHYSICAL THERAPY DAILY TREATMENT NOTE - OP Date: 12/13/2024 Visit Number: [id number] Patient Name: Nora Armstrong : 1985 Age: 39 y.o. Gender: female Diagnosis: ICD-10-CM ICD-9-CM 1. Tendonitis, Achilles, left M76.62 726.71 Date of Onset/Surgery: 11/23/2023 Referring Provider: Leodan White DPM Insurance: Payor: [employer] PLAN / Plan: [employer] MEDICAID / Product Type: *No Product type* / Patient Identified by: Sandra Hdez PT Language: Speaks and understands Zambian as preferred language with no correctional therapy teacher required Medications: Current Outpatient Medications on File Prior to Visit Medication Sig Dispense Refill amitriptyline (ELAVIL) 25 mg tablet Take 1 tablet (25 mg total) by mouth at bedtime. docusate sodium (COLACE) 100 mg capsule Take 1 capsule (100 mg total) by mouth. at bedtime doxycycline (VIBRAMYCIN) 100 mg capsule Take 1 capsule (100 mg total) by mouth 2 (two) times a day.for 5 days esomeprazole (NexIUM) [address] capsule Take 1 capsule (40 mg total) by mouth 1 (one) time each day. famotidine (PEPCID) 20 mg tablet take 1 tablet (20 mg) orally bedtime fluticasone propionate (FLONASE) 50 mcg/actuation nasal spray SPRAY 2 SPRAYS INTRANASALLY DAILY Gas Relief Extra Strength 125 mg capsule TAKE 1 CAPSULE 3 TO 4 TIMES A DAY NEEDED FOR ABDOMINAL DISTENTION Laxative, bisacodyl, 5 mg EC tablet Take 2 tablets (10 mg total) by mouth. at bedtime omeprazole (PriLOSEC) [address] capsule take 1 capsule (20 mg) orally daily ondansetron ODT (ZOFRAN-ODT) 4 mg disintegrating tablet DISSOLVE 1 TABLET BY MOUTH EVERY 6 HOURS ASNEEDED FOR NAUSEA AND VOMITING senna 8.6 mg tablet TAKE 2 TABLETS BY MOUTH DAILY AT BEDTIME FOR CONSTIPATION topiramate (TOPAMAX) 50 mg tablet TAKE 1 TABLET BY MOUTH BEDTIME FOR 30 DAYS Ventolin HFA 90 mcg/actuation inhaler INHALE 2 PUFFS BY MOUTH EVERY 6 HRS NEEDED FOR SHORTNESS OF BREATH OR WHEEZING vitamin E, dl,tocopheryl acet, (vitamin E, dl, acetate,) 180 mg (400 unit) capsule Take 1 capsule (400 Units total) by mouth 1 (one) time each day. Wegovy 1.7 mg/0.75 mL injection pen (Patient not taking: Reported on 10/11/2024) No current facility-administered medications on file prior to visit. Allergies: is allergic to peach, aspirin, metformin, penicillin, and sulfa (sulfonamide antibiotics). Precautions: none Fall risk: No SUBJECTIVE Subjective Report: Patient continues to have swelling but notes the pain feels less today Chart Reviewed: Yes Pain: (R) 08/29, was (L) 09/28today TREATMENT INTERVENTION: Therapeutic exercise: NuStep level 5 x 5 min Slant board 3 x 20 sec hold Manual Therapy: STM/MFR to bilateral gastrocs/soleus Subtalar distraction (B) ASSESSMENT/Response to Treatment Fair Patient responded well to treatment with minimal complaints of discomfort in her ankles. The patient was instructed to continue with strengthening and stretching exercises at home. Patient Education: Education provided: issued HEP for plantar fascia stretching, toe stretching against wall, heelraises as above. Education Provided To: Patient utilizing Printed Material mode(s) of education Response to Education: Verbal Understanding PLAN POC Development/Review: No Change in the Plan of Care; Participants: Patient Interventions Time Entry: Therapeutic procedures: Manual Therapy Time Entry: 12 Therapeutic Exercise Time Entry: 12 Total Treatment Time: 24 mins Documentation completed by Sandra Hdez PT documented in this encounter Plan of Treatment Upcoming Encounters Date Type Department Care Team (Late st Contact Info) Description 12/20/2024 6:00 PM EDT Treatment [facility] - [place] [address] [facility] [address] [place] [id number] Sandra Hdez PT 01/17/2025 3:30 PM EDT Office Visit Orthopedic Surgery - [place] [address] [facility] [address] [place] [id number] Leodan White, DPM [address] [facility] [address] [place] [address] documented as of this encounter Goals Goal Patient Goal Type Associated Problems Recent Progress Patient-Stated? Author PT LTG - 8 visits General No Sandra Hdez PT Note: Patient reports subjective decrease in left heel pain Patient is able to wear sneakers without discomfort Slight myofascial restriction to bilateral Achilles and gastrocs Slight flexibility restriction to bilateral gastrocs/soleus Patient is independent and compliant with HEP documented as of this encounter Visit Diagnoses Diagnosis Tendonitis, Achilles, left- Primary documented in this encounter Additional Health Concerns Assessment Noted Time PHQ-9 Depression Total Score: 17 08/31/ 025 6:32 PM EDT documented as of this encounter Care Teams Lesson Instructor Relationship Specialty Start Date End Date Lyndsay Peñaloza MD [address] [facility] [address] [facility] D[facility]A: [facility] [place] PCP - General 10/18/20 documented as of this encounter
--- NOTE | 2024-12-18 15:54 | MHC.OFFVIS ---
Vital Signs 12/18/24 15:58 Height 5 ft 9 in Weight 235 lb BMI 34.7 BP 136/70 Blood Pressure Location Rt brachial Position Sitting Pulse 94 Pulse Source Pulse Oximeter Pulse Oximetry (%) 97 Oxygen Delivery Method Room Air Intake Visit Reasons: f/u Intake Note: ESTABLISHED PATIENT for GERD mgmt. CC; Pt denies any GI changes or new sx at this time. Pt requests refill of dulcolax but states that they have enough of their other Rx at this time. Medicare Specialist Required: No Accompanied by: Self / Same As Patient Allergies aspirin (ASPIRIN) Allergy (Severe, Verified 12/18/24 15:54) Anaphylaxis penicillin V Allergy (Severe, Verified 12/18/24 15:54) anaphylaxis Sulfa (Sulfonamide Antibiotics) (SULFA (SULFONAMIDE ANTIBIOTICS)) Allergy (Intermediate, Verified 12/18/24 15:54) RASH sulfacetamide (From Sulfacet-R) Allergy (Intermediate, Verified 12/18/24 15:54) Throat closes sulfur (From Sulfacet-R) Allergy (Intermediate, Verified 12/18/24 15:54) Throat closes peach (PEACH) Allergy (Unknown, Verified 12/18/24 15:54) UNKNOWN banana Allergy (Verified 12/18/24 15:54) Unknown watermelon Allergy (Verified 12/18/24 15:54) Unknown HPI HPI f/u: Details: LAST VISIT:' GERD (gastroesophageal reflux disease) Hepatic steatosis Chronic idiopathic constipation Bloating Plan Patient will continue taking Dulcolax daily. Simethicone as needed. Discussed with patient avoiding dietary triggers and late night snacking. Staying upright for minimum 3 hours after meals discussed with patient. Patient was encouraged to follow low FODMAP diet. Patient will try to take berberine to see if will help with appetite cravings as she does not want to take GLP 1 continue omeprazole in the morning and famotidine at bedtime. Will check liver fibrosis panel. Follow-up in 3-4 months, sooner on as needed basis. She is agreeable to this plan and verbalizes understanding of instructions. She was given the opportunity to ask questions and all questions answered. ? Thank you for allowing me to participate in her care Orders Liver Fibrosis Pnl Today K76.0 Refilled bisacodyl (Dulcolax (bisacodyl)) 10 mg (2 x 5 mg) PO BEDTIME 180 tabs 4RF simethicone (Gas Relief (simethicone)) 125 mg PO TID-QID PRN 120 caps 2RF abdominal distention R14.0 ondansetron 4 mg PO Q6H PRN 10 tabs 0RF nausea and vomiting Discontinued methylcellulose (laxative) (Citrucel) Discontinued Reason: Patient no longer taking 500 mg PO BID 180 tabs 2RF K59.00 TODAY'S VISIT Patient is here today for follow-up. Patient reports that she has been doing fairly well. She still gets bloated occasionally. Patient last 18 lb since August. She is no longer taking GLP 1 as she was not feeling good. Patient is taking Dulcolax 2 tablets every evening and moves her bowels without any issues. Patient takes stool softener occasionally. However she does report that occasionally she will have loose stools. Patient reports that symptoms of acid reflux are suppressed with omeprazole and she takes famotidine at bedtime. Patient continues to eat mostly Mauritian food. She admits that she does not drink enough water. Patient denies nausea, vomiting, unintentional weight loss, hematochezia, melena, ribbon like stools. Postprandial abdominal bloating frequent. Patient reports that her fiber intake is pretty low. Mainly she is eating rice with meat. Postprandial diarrhea after eating salad [facility] Medical History Rectal bleeding H. pylori infection Class 2 obesity with body mass index (BMI) of 37.0 to 37.9 in adult Acute diarrhea Low back pain radiating to lower extremity Surgical History Hx of endoscopy History of cervical polypectomy Family History Mother Cervical cancer Father Diabetes mellitus Essential hypertension Social History Housing: Apartment Alcohol intake: never Patient Tobacco Use Status: Never used Tobacco e-Cigarette/Vaping Use: Never Used Second Hand Smoke Exposure: No service: No Current occupational status: employed Current occupational exposures/hazards: No Cognitive needs: No Hearing needs: No Vision needs: Yes Review of Systems Const Denies weight gain and Denies weight loss ENT Reports no additional complaints, Denies dysphagia and Denies odynophagia Card Reports no additional complaints Resp Reports no additional complaints GI Denies abdominal pain, Denies belching, Denies melena, Denies bloating, Denies change in bowel habits, Reports constipation (Occasionally), Denies dysphagia, Denies excessive flatus, Denies dyspepsia, Denies heartburn, Denies diarrhea, Denies loose stools, Denies nausea, Denies odynophagia and Denies vomiting Reports no additional complaints Musc Reports no additional complaints Neuro Reports no additional complaints Psych Reports no additional complaints Endo Reports no additional complaints Physical Exam Vital Signs: Last Vital Signs Pulse 94 12/18/24 15:58 BP 136/70 12/18/24 15:58 Pulse Ox 97 12/18/24 15:58 Oxygen Delivery Method Room Air 12/18/24 15:58 BMI result Body Mass Index 34.7 Const General: healthy appearing and no acute distress Nutritional Appearance: obese Orientation/consciousness: patient oriented x3 Resp Effort & Inspection: normal respiratory effort, able to speak in complete sentences, no tracheal deviation and symmetric chest movement Auscultation: clear to auscultation bilaterally Cardio Rate: regular rate GI Inspection: Yes normal to inspection, No distended and Yes obesity Palpation (GI): Soft to palpation, not firm, nontender and No hepatosplenomegaly present Auscultation: normal bowel sounds General: Yes no CVA tenderness Back/Spine/Pelvis Back: no CVA tenderness Skin General skin exam: elasticity normal, turgor normal and dry skin Neuro General: patient oriented x3 Psych Appearance: grossly normal Mental Status: mental status grossly normal Results Reviewed Results Reviewed: Laboratory Tests 10/04/24 15:39 Liver Total Bilirubin 0.3 Liver Apolipoprotein A1 147 Liver Fibrosis ALT 29 Liver c-4-Lpssxhqhmaelk 129 Liver Haptoglobin 192 Liver Fibrosis Score 0.03 Liver Fibrosis Stage F0 Necroinflammator Score 0.10 Necroinflammator Grade A0 Assessment & Plan Assessment & Plan (1) GERD (gastroesophageal reflux disease): Code(s): K21.9 - Gastro-esophageal reflux disease without esophagitis Category: Medical Qualifiers: Esophagitis presence: esophagitis presence not specified Qualified Code(s): K21.9 - Gastro-esophageal reflux disease without esophagitis (2) Hepatic steatosis: Code(s): K76.0 - Fatty (change of) liver, not elsewhere classified Category: Medical (3) Diarrhea: Code(s): R19.7 - Diarrhea, unspecified Category: Medical Qualifiers: Diarrhea type: unspecified type Qualified Code(s): R19.7 - Diarrhea, unspecified (4) Chronic idiopathic constipation: Code(s): K59.04 - Chronic idiopathic constipation Category: Medical (5) Bloating: Code(s): R14.0 - Abdominal distension (gaseous) Category: Medical (6) Postprandial abdominal bloating: Code(s): R14.0 - Abdominal distension (gaseous) Plan Discussed with patient avoiding dietary triggers late night snacking. Continue omeprazole and famotidine. Staying upright for minimum 3 hours after meals discussed with patient. Patient was encouraged to take fiber supplements. Script sent to pharmacy. Continue taking Dulcolax daily. Increase fluid intake and activity to promote better bowel motility. Will send patient for ultrasound with elastography. Continue low-fat, low carb, low-salt and high-protein diet. Follow-up in 3-4 months, sooner on as needed basis. Patient is agreeable to this plan and verbalizes understanding of instructions. She was given the opportunity to ask questions and all questions answered. Thank you for allowing me to participate in her care Orders: Orders US abdomen comp w elastography Today R79.89 - Other specified abnormal findings of blood chemistry Medications: New methylcellulose (laxative) (Citrucel) take it with full glass of water 500 mg PO DAILY 90 tabs 2RF K59.00 - Constipation, unspecified Refilled famotidine 20 mg PO 2XW 90 tabs 1RF K21.9 - Gastro-esophageal reflux disease without esophagitis bisacodyl (Dulcolax (bisacodyl)) 10 mg (2 x 5 mg) PO BEDTIME 180 tabs 4RF omeprazole 20 mg PO DAILY 90 caps 1RF Coding Level of Care Code Est Pt Level 4 (22216) Complex EM visit Add On G2211 Diagnoses Gastroesophageal reflux disease, unspecified whether esophagitis present K21.9 Esophagitis presence: esophagitis presence not specified Hepatic steatosis K76.0 Diarrhea, unspecified type R19.7 Diarrhea type: unspecified type Chronic idiopathic constipation K59.04 Bloating R14.0 Postprandial abdominal bloating R14.0 Time Spent (min) 35 Comment 25 minutes spent with patient and additional 10 minutes spent reviewing her records
[2024-12-18 15:58] VITALS: BP 136/70; PULSE 94; O2SAT 97; BMI 34.7
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
--- OUTSIDE RECORDS SUMMARY | 2024-12-18 17:55 | XMS_ITS | Clinical Summary ---
Author Organization [facility] Address [address] [place] [address] Phone Care Team Providers Care Acrylic Fabricator Name Role Phone Lyndsay Ballard MD Primary Care Provid er Allergies Active Allergy Reactions Criticality Noted Date Comments Aspirin Hives 01/18/2018 [place] Anaphylaxis High 01/18/2018 Penicillins Anaphylaxis High 01/18/2018 Sulfa (Sulfonamide Antibiotics) Anaphylaxis High Medications medroxyPROGESTE David (PROVERA) 5 MG tablet Take 10 mg by mouth. 12/10/2017 Active acarbose (PRECOSE) 25 MG tablet Take 1 tablet (25 mg total) by mouth 3 (three) times a day with meals. 90 tablet 3 01/18/2018 Active progesterone (PROMETRIUM) 200 mg capsule Take 1 capsule (200 mg total) by mouth daily. Days 1-10 of the month if no menses the prior month 30 capsule 3 01/18/2018 Active Family History Medical History Relation Comments Diabetes Brother Diabetes Father No Known Problems Maternal Grandfather Emphysema Maternal Grandmother Cervical cancer Mother Lung cancer Mother No Known Problems Paternal Grandfather No Known Problems Paternal Grandmother Relation Status Comments Brother Alive Father Maternal Grandfather Maternal Grandmother Mother Paternal Grandfather Paternal Grandmother Social History Tobacco Use Types Packs/Day Years Used Date Smoking Tobacco: Never Smokeless Tobacco: Never Alcohol Use Standard Drinks/Week Comments No 0 (1 standard drink = 0.6 oz pur e alcohol) Education Answer Date Recorded Are you interested in more education? Not on amanda e 07/17/2022 Are you concerned about learning? Not on file 07/17/2022 No 07/17/2022 No 07/17/2022 Digital Access Answer Date Recorded No 08/15/2022 No 08/15/2022 No 08/15/2022 Reliable internet access at home? Not on file 08/15/2022 Device with a working camera? Not on file Comments No Sex and Gender Information Value Date Recorded Sex Assigned at Not on file Legal Sex Female 3:46 PM EDT Gender Identity Not on file Sexual Orientation Not on file Last Filed Vital Signs Vital Sign Reading Time Taken Comments Blood Pressure 114/72 01/18/2018 11:12 AM EDT Pulse - - Temperature - - Respiratory Rate - - Oxygen Saturation - - Inhaled Oxygen Concentration - - Weight 112.9 kg (249 lb) 01/18/2018 11:12 AM EDT Height 175.3 cm (5' 9 ) 01/18/2018 11:12 AM EDT Body Mass Index 36.77 01/18/2018 11:12 AM EDT Plan of Treatment Health Maintenance Due Date Last Done Comments Adult Td,Tdap Booster 1987 DEPRESSION SCREENING 1999 HEPATITIS C SCREENING 2005 HIV ONE-TIME SCREENING (18-6 5 YEARS) 2005 PAP SMEAR 02/10/2008 INFLUENZA VACCINE (#1) 2024 COVID-19 VACCINE ( - 2023-2 5 season) 2024 SMOKING STATUS SCREENING (On ce After 26 Yrs) Completed 01/18/2018 HEPATITIS A VACCINES Aged Out No long er eligible based on patient's age to complete this topic HIB VACCINES Aged Out No longer eligi ble based on patient's age to complete this topic MENINGOCOCCAL VACCINES (ACWY) Aged Out No longer eligible based on patient's age to complete this topic MENINGOCOCCAL VACCINES (B) Aged Out N o longer eligible based on patient's age to complete this topic PNEUMOCOCCAL VACCINES (0-49 years) Aged Out No longer eligible based on patient's age to complete this topic Medical Devices Not on file Insurance [employer] Care Teams Acrylic Fabricator Relationship Specialty Start Date End Date Lyndsay Ballard MD [address] [place] [address] PCP - General 11/05/17 Additional Source Comments The information contained in this document represents components of the legal health record. It is not the complete legal health record.[facility]
== END 2024-12-18 16:13 | disposition home or self-care (01) ==
LOC: HO.HGI 15:50
PROVIDERS: PCP Internal Medicine; Visit Provider Nurse Practitioner Family
DX: K21.9 Gastro-esophageal reflux disease without esophagitis (principal); K76.0 Fatty (change of) liver, not elsewhere classified; R19.7 Diarrhea, unspecified; K59.04 Chronic idiopathic constipation; R14.0 Abdominal distension (gaseous)
CPT/HCPCS: 99214

== ENCOUNTER → 2024-12-18 15:49 | Outpatient (BNVA) | payer OTHER, SELFPAY | PROVIDERS: PCP Internal Medicine; Visit Provider Nurse Practitioner Family | DX: K21.9 Gastro-esophageal reflux disease without esophagitis (principal); K76.0 Fatty (change of) liver, not elsewhere classified; R19.7 Diarrhea, unspecified; K59.04 Chronic idiopathic constipation; R14.0 Abdominal distension (gaseous); R79.89 Other specified abnormal findings of blood chemistry | CPT/HCPCS: 99212 ==

== ENCOUNTER 2025-02-20 08:35 | Outpatient (REF) | payer OTHER, SELFPAY ==
--- NOTE | ~2025-02-20 | US_ITS ---
EXAMINATION: US ABDOMEN COMPLETE WITH LIVER ELASTOGRAPHY HISTORY: R79.89 - Other specified abnormal findings of blood chemistry TECHNIQUE: Real-time grayscale ultrasound imaging of the abdomen was performed and images were reviewed. COMPARISON: Comparison is made with the prior examination dated 01/11/2024. FINDINGS: Liver: The right lobe of the liver measures 20.7 cm in size. The left lobe of the liver measures 14.7 cm in size. The liver demonstrates increased echotexture, consistent with steatosis. No focal mass or intrahepatic biliary ductal dilatation is identified. There is normal hepatopedal flow in the portal vein. Ultrasound elastography of the liver was performed with 10 separate measurements of the liver parenchyma with the patient in the supine position. Measurements were obtained approximately 2 cm below Kenji's capsule and perpendicular to the capsule. The median shear wave velocity is 0.87 m/s (previously 1.33 m/s). The interquartile range/median (IQR/median) is 0.18. Gallbladder and biliary tree: The gallbladder is unremarkable, without evidence of calculi, wall thickening, or pericholecystic fluid. There is no sonographic Villafuerte sign. The common bile duct is normal in caliber measuring 4 mm. Kidneys: The right kidney measures 11.6 cm in length. The left kidney measures 12.1 cm in length. The kidneys are unremarkable, without evidence of masses, hydronephrosis, or calculi. Pancreas: The pancreatic head, neck, and body are unremarkable. The pancreatic tail is obscured by bowel gas. Spleen: The spleen is normal in size and contour, measuring 11.6 cm in length. Abdominal aorta and inferior vena cava: The visualized portions of the abdominal aorta and inferior vena cava are normal in caliber. There is no free fluid in the abdomen. US/US abdomen comp w elastography IMPRESSION: Hepatomegaly and hepatic steatosis. The median shear wave velocity in the liver is 0.87 m/s, corresponding to a median liver stiffness of 2.3 kPa. The IQR/median value is 0.18. This is indicative of a quality data set. Findings are indicative of a normal elastography value with a low likelihood of severe fibrosis or cirrhosis. REFERENCE: Society of Radiologists in Ultrasound Liver Stiffness Thresholds (2020): LIVER STIFFNESS THRESHOLDS: *Shear wave velocity less than 1.3 m/s (Liver Stiffness equal or less than 5 kPa): High probability of being normal. *Shear wave velocity less than 1.7 m/s (Liver Stiffness less than 9 kPa): In the absence of other known clinical signs, rules out compensated advanced chronic liver disease. *Shear wave velocity between 1.7-2.1 m/s (Liver Stiffness 9-13 kPa): Suggestive of compensated advanced chronic liver disease but need further test for confirmation. *Shear wave velocity between 2.1-2.4 m/s (Liver Stiffness 13-17 kPa): Rules in compensated advanced chronic liver disease. *Shear wave velocity greater than 2.4 m/s (Liver Stiffness over 17 kPa): Suggestive of clinically significant portal hypertension. QUALITY OF DATA SET: *IQR/Median value equal or less than 0.30 implies a quality data set. *IQR/Median value over 0.30 implies a poor quality data set. SIGNIFICANT CHANGE FROM PRIOR EXAM: Significant change if liver stiffness measurement is 10% or greater from prior exam. OTHER CONSIDERATIONS: The stage of liver fibrosis may be overestimated in the setting of acute hepatitis, liver inflammation, elevated liver function tests, hepatic vascular congestion, obstructive cholestasis, non-fasting state, and infiltrative diseases such as amyloidosis and lymphoma. In some patients with NAFLD, the liver stiffness thresholds for compensated advanced chronic liver disease may be lower. In causes other than viral hepatitis and NAFLD, liver stiffness thresholds are not well established. Electronically signed by: Js Herron MD 02/20/2025 10:04 AM DARLENE
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
--- OUTSIDE RECORDS SUMMARY | 2025-02-20 08:40 | XMS_ITS | Encounter Summary ---
Author Organization [facility] Address [address] [place] [address] Care Team Providers Care Retail Selling Specialist Name Role Phone Lyndsay Peñaloza MD Primary Care Provider [phone] Encounter Details Date Type Department Care Team (Late st Contact Info) Description 02/13/2025 Results Follow-Up Obstetrics [facility]necology [facility] [address] [place] [phone] Mariely Bryant [place] Social History Tobacco Use Types Packs/Day Years [...] care for your loved ones. For example, children librarian or elderly care for an older adult? [...] on file documented as of this encounter Plan of Treatment Upcoming Encounters Date Type Department Care Team (Late st Contact Info) Description 03/07/2025 3:15 PM EST Office Visit Orthopedic Surgery - [place] [address] [phone] Leodan White DPGrisel [address] [phone] documented as of this encounter Visit Diagnoses Not on filedocumented in this encounter Additional Health Concerns Assessment Noted Time PHQ-9 Depression Total Score: 17 025 6:32 PM EDT documented as of this encounter Care Teams Retail Selling Specialist Relationship Specialty Start Date End Date Lyndsay Peñaloza MD [address] [place] [address] , [facility] [address] [facility] Physician Associ D/B/A: [facility] [place] PCP - General 10/18/20 documented as of this encounter
--- OUTSIDE RECORDS SUMMARY | 2025-02-20 08:40 | XMS_ITS | Clinical Summary ---
Author Organization [facility] Address [address] [place] [address] Phone Care Team Providers Care Platen Grinder Name Role Phone Lyndsay Ballard MD Primary Care Provid er Allergies Active Allergy Reactions Criticality Noted Date Comments Aspirin Hives 01/18/2018 [place] Anaphylaxis High 01/18/2018 Penic[place] Anaphylaxis High 01/18/2018 [...] VACCINE (#1) 2024 COVID-19 VACCINE ( - 2024-2 6 season) 2024 SMOKING STATUS SCREENING (On ce [...] Insurance [employer] Care Teams Platen Grinder Relationship Specialty Start Date End Date Lyndsay Ballard MD [address] [place] [address] PCP - General 11/05/17 Additional Source Comments The information contained in this document represents components of the legal health record. It is not the complete legal health record.[facility]
== END 2025-02-20 08:36 | disposition home or self-care (01) ==
LOC: HO.US 08:35
PROVIDERS: PCP Internal Medicine; Visit Provider Nurse Practitioner Family
DX: R79.89 Other specified abnormal findings of blood chemistry (principal)
CPT/HCPCS: 76700; 76981

== ENCOUNTER → 2025-02-20 08:37 | Outpatient (BNV) | payer OTHER, SELFPAY | PROVIDERS: PCP Internal Medicine; Visit Provider Radiology Diagnostic Radiology | DX: K76.0 Fatty (change of) liver, not elsewhere classified (principal); R16.0 Hepatomegaly, not elsewhere classified | CPT/HCPCS: 76700 ==